=== PATIENT | female | born 1945 | race Caucasian/White ===

== ENCOUNTER 2017-12-25 13:17 | Emergency (ER) | payer MEDICARE, OTHER ==
[2017-12-25 13:25] VITALS: BP 144/67; PULSE 105; RESP 18; TEMP 97.8
--- NOTE | 2017-12-25 14:34 | XR ---
EXAMINATION TYPE: XR wrist complete LT, XR hand complete LT DATE OF EXAM: 12/25/2017 CLINICAL HISTORY: Injury with pain. TECHNIQUE: Frontal, lateral and oblique images of the left hand and wrist are obtained. Additional f ourth scaphoid view left wrist is acquired. COMPARISON: None FINDINGS: There is no acute fracture/dislocation evident in the left wrist. There is advanced joint space loss with marginal osteophytes at base of first metacarpal. Some faint calcification distal uln ar level is present, possible calcification of the triangular fibrocartilage. Images of left hand show demineralization. There is mild to moderate joint space loss throughout the phalanges involving PIP and DIP joints. No acute fracture or dislocation is evident. Mild to moderate diffuse soft tissue swelling throughout the fingers is seen. IMPRESSION: There is no acute fracture or dislocation in the left hand or wrist.
--- NOTE | 2017-12-25 14:42 | ED ---
General Adult HPI - General Chief complaint: Extremity Injury, Upper Stated complaint: L Hand Pain Time Seen by Provider: 12/25/17 13:32 Source: patient, RN notes reviewed Mode of arrival: ambulatory Limitations: no limitations - History of Present Illness Initial comments: 72-year-old female presents to the emergency department for a chief complaint of left wrist and hand pain x 2 days. Patient states that 2 days ago she was walking when she tripped on her dog and fell onto her right wrist. Patient states it has been painful since that time. Patient states she takes Tylenol for pain. Patient states it is painful to move her fingers and her wrist. Patient denies pain in the elbow or shoulder. Patient denies hitting her head or losing consciousness. Patient denies sustaining any other injuries.Patient has no other complaints at this time including shortness of breath, chest pain, abdominal pain, nausea or vomiting, headache, or visual changes. - Related Data Home Medications Medication Instructions Recorded Confirmed Atorvastatin Calcium [Lipitor] 80 mg PO HS 12/25/17 12/25/17 Gabapentin [Neurontin] 300 mg PO BID 12/25/17 12/25/17 Insulin Glargine,Hum.rec.anlog 48 units SQ HS 12/25/17 12/25/17 [Lantus Solostar] Isosorbide Mononitrate ER [Imdur] 60 mg PO DAILY 12/25/17 12/25/17 PARoxetine [Paxil] 10 mg PO DAILY 12/25/17 12/25/17 Potassium Chloride ER [K-Dur 10] 10 meq PO DAILY 12/25/17 12/25/17 metFORMIN HCL [metFORMIN HCL] 1,000 mg PO BID 12/25/17 12/25/17 sitaGLIPtin [Januvia] 100 mg PO DAILY 12/25/17 12/25/17 Allergies Allergy/AdvReac Type Severity Reaction Status Date / Time adhesive tape Allergy Unknown Verified 12/25/17 13:32 Review of Systems ROS Statement: Those systems with pertinent positive or pertinent negative responses have been documented in the HPI. ROS Other: All systems not noted in ROS Statement are negative. Past Medical History Past Medical History: Chest Pain / Angina, Hypertension Additional Past Medical History / Comment(s): back pain History of Any Multi-Drug Resistant Organisms: None Reported Past Surgical History: Back Surgery, Coronary Bypass/CABG Past Psychological History: No Psychological Hx Reported Smoking Status: Current some day smoker Past Alcohol Use History: None Reported Past Drug Use History: None Reported General Exam Limitations: no limitations General appearance: alert, in no apparent distress Head exam: Present: atraumatic, normocephalic, normal inspection Neck exam: Present: normal inspection. Absent: tenderness, meningismus, lymphadenopathy Respiratory exam: Present: normal lung sounds bilaterally. Absent: respiratory distress, wheezes, rales, rhonchi, stridor Cardiovascular Exam: Present: regular rate, normal rhythm, normal heart sounds. Absent: systolic murmur, diastolic murmur, rubs, gallop, clicks Extremities exam: Present: tenderness (Patient has generalized tenderness over the left wrist. Patient also has tenderness in the hand and scaphoid areas.), normal capillary refill (Refill less than 2 seconds and radial pulse 2+.), joint swelling (There is mild swelling noted over the dorsal left wrist and proximal hand.), other (Sensation intact in the left upper extremity.). Absent : normal inspection, full ROM (Patient has very limited flexion and extension of the wrist due to pain. Patient is able to move the wrist though. Patient is also able to move the fingers but has pain with doing so. Full range of motion of the left elbow and left shoulder.) Course Vital Signs 12/25/17 13:22 Temperature 97.8 F Pulse Rate 105 H Respiratory 18 Rate Blood Pressure 144/67 O2 Sat by Pulse 96 Oximetry Medical Decision Making - Medical Decision Making 72-year-old female presents to the emergency department for a chief complaint of left wrist and hand pain 2 days. Patient tripped over her dog 2 days ago and fell on her left wrist. Patient has been taking Tylenol for pain. She has not iced it. She was given ice in the emergency department. On exam patient refuses to move her wrist due to pain. Patient is able to move it if she needs to. Patient is also able to move her fingers but it is painful. Neurovascular intact. Patient has tenderness generalized over the left wrist as well as tenderness to the scaphoid area. X-ray shows no acute fracture or dislocation evident in the left hand or wrist. There is advanced joint space loss at the base of the first metacarpal. The calcification distal ulnar level present. Images of the left hand show demineralization. Mild to moderate joint space loss throughout the phalanges. No acute fracture or dislocation evident. Patient likely has a contusion of the left wrist. However, she will be splinted in a thumb spica in case of occult scaphoid fracture. She will follow up with orthopedics in one to 2 days. She will take Tylenol for pain until then and keep it rested, iced, and elevated. She will return to the emergency Department if she has any worsening symptoms. Disposition Clinical Impression: Wrist pain, left Disposition: HOME SELF-CARE Condition: Good Instructions: Wrist Injury (ED), RICE Therapy (ED) Additional Instructions: Please continue to take Tylenol for pain. Remember to rest, ice, and elevate the wrist. Return to the emergency department if you have any worsening symptoms. Otherwise follow-up with orthopedics in one to 2 days for "SCAPHOID TENDERNESS". Is patient prescribed a controlled substance at d/c from ED?: No Referrals: Shukri Streeter MD [Primary Care Provider] - 1-2 days Stacy Mendez DO [Doctor of Osteopathic Medicine] - 1-2 days Time of Disposition: 15:03
== END 2017-12-25 15:11 | disposition home or self-care (01) ==
LOC: EC 13:17
DX: M25.432 Effusion, left wrist (principal); M25.442 Effusion, left hand; M81.0 Age-related osteoporosis without current pathological fracture; R93.7 Abnormal findings on diagnostic imaging of other parts of musculoskeletal system; I10 Essential (primary) hypertension; F17.200 Nicotine dependence, unspecified, uncomplicated; Z79.4 Long term (current) use of insulin; Z79.899 Other long term (current) drug therapy; Z91.09 Other allergy status, other than to drugs and biological substances; W01.0XXA Fall on same level from slipping, tripping and stumbling without subsequent striking against object, initial encounter; Y93.01 Activity, walking, marching and hiking
CPT/HCPCS: 99283 ×2; 29125 ×2; 73110; 73130; L3650

== ENCOUNTER → 2020-01-11 | Outpatient (CLI) | payer MEDICARE, OTHER ==
[2020-01-11 10:59] LABS: Amorphous Sediment,Urine Rare /hpf; Appearance,Urine Cloudy (Clear); Bacteria,Urine Few /hpf; Bilirubin,Urine Negative (Negative); Blood,Urine Negative (Negative); Color,Urine Yellow; Glucose,Urine (UA) Negative (Negative); Ketones,Urine Negative (Negative); Leukocyte Esterase,Urine Large (Negative); Mucus,Urine Rare /hpf; Nitrite,Urine Negative (Negative); Protein,Urine Negative (Negative); RBC,Urine 2 /hpf (0-5); Specific Gravity,Urine 1.015 (1.001-1.035); Squamous Epithelial Cell,Urine 32 /hpf (0-4); WBC,Urine 25 /hpf (0-5)
--- NOTE | 2020-01-11 13:44 | XR ---
EXAMINATION TYPE: XR chest 2V DATE OF EXAM: 01/11/2020 COMPARISON: Prior chest x-ray 06/27/2016 HISTORY: Z01.818 TECHNIQUE: Frontal and lateral views of the chest are obtained. FINDINGS: Patient is post median sternotomy and rotated. The aorta is dense and possibly aneurysmal. There is no evident airspace disease, pneumothorax, or pleural effusion. Heart is enlarged. IMPRESSION: Cardiomegaly, possible thoracic aortic aneurysm
== END | disposition home or self-care (01) ==
LOC: LABPAT 09:26
PROVIDERS: ATTEND Orthopaedic Surgery Orthopaedic Surgery of the Spine
DX: Z01.818 Encounter for other preprocedural examination (principal); I51.7 Cardiomegaly; M50.00 Cervical disc disorder with myelopathy, unspecified cervical region
CPT/HCPCS: 71046; 81001; 93005

== ENCOUNTER → 2020-08-01 | Outpatient (CLI) | payer MEDICARE, OTHER ==
--- NOTE | 2020-08-01 13:22 | XR ---
EXAMINATION TYPE: XR chest 2V DATE OF EXAM: 08/01/2020 COMPARISON: 01/11/2020 TECHNIQUE: PA and lateral views submitted. HISTORY: Presurgical FINDINGS: The lungs are clear and there is no pneumothorax, pleural effusion, or focal pneumonia. Postoperati ve changes seen and there is ectasia of the aorta with cardiomegaly. Hypertrophic and degenerative ch anges spine. IMPRESSION: 1. Cardiomegaly with aortic ectasia correlate clinically.
[2020-08-01 13:47] LABS: HCT 40.3 % (34.0-46.0); HGB 13.5 gm/dL (11.4-16.0); MCH 32.9 pg (25.0-35.0); MCHC 33.6 g/dL (31.0-37.0); MCV 97.7 fL (80.0-100.0); Mean Platelet Volume 9.6; Platelet Count 191 k/uL (150-450); RBC 4.12 m/uL (3.80-5.40); RDW 13.8 % (11.5-15.5)
[2020-08-01 13:54] LABS: Appearance,Urine Cloudy (Clear); Bacteria,Urine Rare /hpf; Bilirubin,Urine Negative (Negative); Blood,Urine Negative (Negative); Color,Urine Yellow; Glucose,Urine (UA) Negative (Negative); Ketones,Urine Negative (Negative); Leukocyte Esterase,Urine Large (Negative); Mucus,Urine Moderate /hpf; Nitrite,Urine Negative (Negative); Protein,Urine 1+ (Negative); Specific Gravity,Urine 1.026 (1.001-1.035); Squamous Epithelial Cell,Urine 28 /hpf (0-4); WBC,Urine 24 /hpf (0-5)
[2020-08-01 13:56] LABS: INR 1.1 (<1.2); Prothrombin Time 11.2 sec (9.0-12.0)
[2020-08-01 14:03] LABS: Potassium 4.4 mmol/L (3.5-5.1)
== END | disposition home or self-care (01) ==
LOC: LABPAT 12:38
PROVIDERS: ATTEND Orthopaedic Surgery Orthopaedic Surgery of the Spine
DX: Z01.818 Encounter for other preprocedural examination (principal); M48.02 Spinal stenosis, cervical region; I51.7 Cardiomegaly; Z79.01 Long term (current) use of anticoagulants; N39.0 Urinary tract infection, site not specified
CPT/HCPCS: 36415; 71046; 80048; 81001; 85027; 85610; 85730; 87086

== ENCOUNTER 2020-08-29 10:36 | Day surgery (SDC) | payer MEDICARE, OTHER ==
[2020-08-01 10:01] VITALS: BMI 24.7
[~2020-08-29 10:36] MED LIST: DEXAMETHASONE SOD PHOSPHATE 4 MG/ML 1 ML VIAL IV ONE; HYDROmorphone 0.5 MG/0.5 ML SYRINGE IVP PRN; LACTATED RINGERS 1,000 ML IV SCH; LIDOCAINE 1% (10MG/ML) FOR IV START INTRADERMA PRN; ONDANSETRON 4 MG/2 ML VIAL IVP ONE; ceFAZolin 1,000 MG in SODIUM CHLORIDE 0.9% IRRIGATIO 1,000 ML IRRIGATION PRN
[2020-08-29] MEDS ORDERED: LIDOCAINE 1% (10MG/ML) FOR IV START INTRADERMA ONE (11:40)
[2020-08-29] MEDS ORDERED: LACTATED RINGERS 1,000 ML IV ONE ×2 (11:40→15:19)
[2020-08-29 11:53] LABS: Glucose,Whole Blood 139 mg/dL (75-99)
[2020-08-29] MEDS ORDERED: SUCCINYLCHOLINE CHLORIDE 100 MG/5 ML SYR IV ONE (13:24)
[2020-08-29] MEDS ORDERED: MIDAZOLAM 2 MG/2 ML VIAL ONE (13:24)
[2020-08-29] MEDS ORDERED: DEXAMETHASONE SOD PHOSPHATE 10 MG/ML 1 ML VIAL ONE (13:24)
[2020-08-29] MEDS ORDERED: LIDOCAINE 1% INJ 10MG/ML (20 ML MDV) ONE (13:24)
[2020-08-29] MEDS ORDERED: ePHEDrine SULFATE/0.9% NACL/PF 50 MG/5 ML SYRINGE IV ONE (13:24)
[2020-08-29] MEDS ORDERED: fentaNYL (PF) 50 MCG/ML 2 ML AMP ONE (13:24)
[2020-08-29] MEDS ORDERED: PHENYLEPHRINE 10 MG/ML VIAL ONE (13:24)
[2020-08-29] MEDS ORDERED: PROPOFOL 10 MG/ML 20 ML VIAL IV ONE (13:24)
[2020-08-29] MEDS ORDERED: GELATIN SPONGE,ABSORB (LARGE) 1 EACH SPONGE MISCELLANE ONE (14:13)
[2020-08-29] MEDS ORDERED: LIDOCAINE 1%-EPI 1:100,000 20 ML VIAL SQ ONE (14:13)
[2020-08-29] MEDS ORDERED: THROMBIN (BOVINE) 5,000 UNIT VIAL TOPICAL ONE (14:14)
--- NOTE | 2020-08-29 14:33 | XR ---
Cervical spine HISTORY: Needle placement Single lateral view of cervical spine Multilevel spondylosis is present. Endotracheal tube is in place. There is a needle present within th e C4-5 disc space. Multilevel loss of disc height at intervertebral levels disc spaces, multilevel fa cet arthropathy noted. There are overlying artifacts. Lower cervical spine not well seen. Patient is edentulous. IMPRESSION: Orthopedic localization.
[2020-08-29] MEDS ORDERED: ACETAMINOPHEN TAB 325 MG TAB PO PRN (15:39)
[2020-08-29] MEDS ORDERED: BENZOCAINE/MENTHOL LOZENG 1 EACH LOZENGE MUCOUS MEM PRN (15:39)
[2020-08-29] MEDS ORDERED: ONDANSETRON 4 MG/2 ML VIAL IVP PRN (15:39)
[2020-08-29] MEDS ORDERED: HYDROcodone/APAP 5-325MG 1 EACH TAB PO PRN (15:39)
[2020-08-29] MEDS ORDERED: HYDROmorphone 0.5 MG/0.5 ML SYRINGE IVP PRN (15:39)
[2020-08-29] MEDS ORDERED: HYDROmorphone 1 MG/ML 1 ML SYRINGE IVP PRN (15:39)
[2020-08-29] MEDS ORDERED: GABAPENTIN 100 MG CAP PO PRN (15:40)
--- NOTE | 2020-08-29 15:45 | P.OP ---
Date of Procedure: 08/29/20 Preoperative Diagnosis: Cervical myelopathy, cervical myelomalacia, severe cervical stenosis C3 4 C4 5 C5 6, needed nucleus pulposis C3 4 C4 5 C5 6, upper extremity radiculopathy, upper extremity weakness, degenerative disc disease, neck pain Postoperative Diagnosis: Same Anesthesia: GETA Pathology: none sent Condition: stable Disposition: PACU Description of Procedure: BRIEF OPERATIVE NOTE Preoperative Diagnosis:Cervical myelopathy, cervical myelomalacia, severe cervical stenosis C3 4 C4 5 C5 6, needed nucleus pulposis C3 4 C4 5 C5 6, upper extremity radiculopathy, upper extremity weakness, degenerative disc disease, neck pain Postoperative Diagnosis:Cervical myelopathy, cervical myelomalacia, severe cervical stenosis C3 4 C4 5 C5 6, needed nucleus pulposis C3 4 C4 5 C5 6, upper extremity radiculopathy, upper extremity weakness, degenerative disc disease, neck pain Procedure: Anterior cervical decompression with discectomy and fusion C3-4 C4 5 C5 6 Placement of interbody graft C3 4 C4 5 C5 6 Application of anterior cervical plate C3 4 5 and 6 Surgeon: Dr. Mendez Stave Grader: Maxwell Raymundo is present throughout the entire the case persistence during positioning, dissection, exposure, visualization, and all crucial elements of the case as well as closure. Anesthesia: General anesthesia Estimated blood loss: Approximately 75 mL Complications: None apparent Components implanted: K2M Hendricks anterior cervical plate system with screws and Vikos interbody allograft bone graft with 1 mL of DBX bone putty Disposition: To recovery room in good stable condition. OPERATIVE INDICATIONS The patient has had long-standing issues in their neck and upper extremities. The patient was having worsening at her neck and her upper extremities and some decrease in her function overall. She is having some evidence of weakness in her upper extremity swelled. She was noted to have some signs of early myelopat hy. She was found to have severe cervical stenosis with disc herniation and evidence of severe cervical stenosis with myelomalacia which correlated well with her neck and upper extremity symptoms. The patient has been through conservative treatment. We discussed various treatment options including surgery, and the patient wishes to proceed with surgery We discussed the risk, patient's alternatives and benefits of surgery including but not limited to, risk of bleeding risk of infection, risk of need for further surgery, risk of decreased, loss of motion, muscle function, malunion nonunion, hardware failure, nerve damage, paralysis, heart attack, and . OPERATIVE SUMMARY After discussing all the risks, patient alternatives and benefits at length, the patient elected to proceed with surgical intervention, signed informed consent, and presented for their procedure. The patient was seen and examined in the preoperative holding area and the surgical site was marked. The patient was given antibiotics and brought to the operating room. The patient was positioned on the operating room table in a supine position being careful to pad any bony prominences and pressure points. The patient was sedated and intubated by anesthesia in standard fashion. Once the airway and C- spine were stabilized the patient's arms were padded and tucked at her side, with her shoulders gently taped. The head was placed in a donut pad with the neck in good neutral alignment and position. We were careful to maintain the patient's cervical spine and good neutral alignment and position throughout. The patient was prepped and draped in a normal standard fashion. An appropriate timeout and keystone protocol performed. We were able to proceed with the surgery. The local wound area was infiltrated with local anesthetic. An incision was made transversely approximately 2-1/2 cm over the appropriate levels at C4 5. Dissection was taken down subcutaneously to the level of the platysma which was split in line with its fibers. Dissection was taken with a carotid approach, with the trachea and esophagus medial and the carotid sheath laterally. We dissected down to the anterior surface of the vertebral bodies. Intraoperative x-ray was taken which showed a marker at the appropriate level at C4 5. With the appropriate level positively confirmed, we were able to proceed with discectomy at the appropriate levels, starting at C3 4 and then moving to C4 5 and C5 6 . All of the operative levels were exposed appropriately. The patient had all their twitches back, and there was no evidence of recurrent laryngeal issue. The wound was copiously irrigated and suctioned dry as had been done periodically throughout the case. At the appropriate level/levels, I established an annulotomy with an 11 blade scalpel. A discectomy was performed with a combination of pituitary rongeurs, curettes, a high-speed bur, and Kerrison rongeurs. The posterior longitudinal ligament was taken down as were any posterior osteophytes. no was made of severe central and bilateral foraminal stenosis with large disc herniation. I was able to remove the spurs the disc herniation as well as the posterior osteophytes and get excellent central and bilateral foraminal decompression. This gave good central and bilateral foraminal decompression. There is no evidence of any dural tear or leak. The endplates were prepared with a high-speed bur. With the endplates in good parallel position, I was able to size for the appropriate size interbody graft. The wound was irrigated and suctioned dry the graft was prepared and malleted into position. It had good alignment and position with the anterior surface flush with the anterior surface of the vertebral bodies. This was done similarly the appropriate levels First at C3 4 and then at C4 5 and C5 6. With the grafts intact, I was able to measure and contour and appropriate sized plate. The plate was positioned at the midline over the appropriate levels From C3 6. Screw holes were established with a hand drill and drill guide. Screws were placed in good alignment and position with excellent bony purchase. They were seated under the locking device. The construct was checked and found to be stable. Intraoperative x-ray was taken which showed good alignment and position of the implants at the appropriate levels. There was no evidence of any dural tear or leak. Good hemostasis was maintained. The wound was copiously irrigated and suctioned dry as had been done periodically throughout the case. The platysma was closed with absorbable suture. The subcutaneous tissue was closed. The subcuticular tissue was closed with absorbable suture. The wound was cleaned and dried and dressed appropriately. A soft cervical collar was placed appropriately. The patient was woken up by anesthesia, extubated, transferred back gently to their hospital bed and brought to the recovery room in good stable condition. The patient will be admitted to the hospital for appropriate postoperative care, medical management and monitoring. We will continue to follow them closely about the postoperative course.
[2020-08-29 16:02] LABS: Glucose,Whole Blood 150 mg/dL (75-99)
--- NOTE | 2020-08-29 16:02 | XR ---
Cervical spine Limited HISTORY: Status post fusion Single lateral cervical spine view is submitted. Patient is status post anterior cervical fusion and discectomy at C3-C6. Intervertebral spacing block s been in placed. Upper portion of the anterior plate is not opposed to the C3 vertebral body. There is stable alignment. IMPRESSION: Orthopedic follow-up as described
[2020-08-29] MEDS: SODIUM CHLORIDE 0.9% 1,000 ML IV SCH (17:20)
[2020-08-29] MEDS: LACTATED RINGERS 1,000 ML IV SCH (17:43)
[2020-08-29 20:49] LABS: Glucose,Whole Blood 165 mg/dL (75-99)
[2020-08-29] MEDS: INSULIN ASPART (NovoLOG) 100 UNIT/ML VIAL SQ SCH (20:52)
[2020-08-29] MEDS ORDERED: ATORVASTATIN 80 MG TAB PO SCH (21:00)
[2020-08-29] MEDS: METOPROLOL TARTRATE 50 MG TAB PO SCH (21:11)
[2020-08-29] MEDS: NITROFURANTOIN MONOHYD/M-CRYST 100 MG CAP PO SCH (21:12)
[2020-08-30] MEDS: traMADol 50 MG TAB PO PRN ×2 (01:17→08:53)
[2020-08-30] MEDS: LACTATED RINGERS 1,000 ML IV SCH (03:36)
[2020-08-30] MEDS: SODIUM CHLORIDE 0.9% 1,000 ML IV SCH (05:00)
[2020-08-30 05:01] VITALS: RESP 20
[2020-08-30 06:41] LABS: Glucose,Whole Blood 173 mg/dL (75-99)
[2020-08-30] MEDS: INSULIN ASPART (NovoLOG) 100 UNIT/ML VIAL SQ SCH ×2 (06:45→12:29)
[2020-08-30] MEDS: METOPROLOL TARTRATE 50 MG TAB PO SCH (06:48)
[2020-08-30] MEDS ORDERED: INSULIN DETEMIR (LEVEMIR) 100 UNIT/ML SYR SQ SCH (07:00)
[2020-08-30 08:42] VITALS: PULSE 64
[2020-08-30 08:43] VITALS: BP 152/85; TEMP 97.7
[2020-08-30] MEDS: NITROFURANTOIN MONOHYD/M-CRYST 100 MG CAP PO SCH (08:50)
--- NOTE | 2020-08-30 08:50 | P.DS ---
Providers Date of admission: 08/29/20 Attending physician: Stacy Mendez Primary care physician: Kristian Lundberg [facility] Course: The patient presented on the day of admission as per their operative note. She has severe cervical stenosis with cervical myelopathy and myelomalacia and underwent anterior cervical decompression with discectomy and fusion as per her operative note. We have discussed the possibility of posterior cervical decompression as well, and we will continue to consider this but we may follow patient through her postoperative course from her anterior surgery before we make a final decision on further surgery Intervention for her neck. She feels her arms are doing better since her surgery. She feels her gait and balance is better already. She is having some trouble with her swallowing but did have some Jell-O and some putting yesterday. She feels her pain is controlled. Physical Exam The incision site is clean dry and intact. There is no erythema no drainage. There is no purulence no evidence of infection. There is some mild swelling but no tension around the area. It is soft and supple. Abdomen soft and nontender. Chest has good excursion with deep inspiration and expiration. The patient has active and passive range of motion intact at the upper and lower extremities. There is some mild improvement in her motion and her arms and in neurologic status. She does seem to be moving her arms somewhat improved overall. Hospital Course Postoperative day #1 status post anterior cervical decompression with discectomy and fusion C3 4 C4 5 C5 6 for her severe spinal stenosis with cervical myelopathy and myelomalacia and upper extremity radiculopathy and weakness. The patient has been making good progress postoperatively. She seems to making improvements in her neurologic status already. They have completed the prophylactic antibiotics without any signs or symptoms of infection. The patient has been able to advance their diet, and is tolerating diet adequately. The pain was initially controlled with IV medications and is now controlled appropriately with oral medications. The patient has been able to increase their mobilization. The patient has progressed appropriately. I think they are in good stable condition for discharge today. They will be sent home with appropriate prescriptions. I answered their questions to the best of my ability in a language that they can understand and they are agreeable with the plan. They will follow up as directed in approximately 2 weeks or sooner if she is having any problems. Patient Condition at Discharge: Good Plan - Discharge Summary Discharge Rx Participant: No New Discharge Prescriptions: New HYDROcodone/APAP 5-325MG [[place] 5] 1 each PO Q6HR PRN #28 tab PRN Reason: Pain No Action sitaGLIPtin [Januvia] 100 mg PO DAILY metFORMIN HCL 1,000 mg PO DAILY PARoxetine [Paxil] 20 mg PO DAILY Insulin Glargine,Hum.rec.anlog [Lantus Solostar] 30 units SQ AC-BRKFST PRN PRN Reason: BLOOD SUGAR OVER 140 IN AM Atorvastatin Calcium [Lipitor] 80 mg PO HS Metoprolol Tartrate [Lopressor] 50 mg PO BID traMADol HCL [Ultram] 50 - 100 mg PO Q6HR PRN PRN Reason: Pain Aspirin 81 mg PO DAILY traZODone HCL 50 mg PO HS Gabapentin [Neurontin] 100 mg PO TID PRN PRN Reason: PAIN Acetaminophen Tab [Tylenol Tab] 500 - 1,000 mg PO Q6H PRN PRN Reason: Pain Nitrofurantoin Monohyd/M-Cryst [Macrobid] 100 mg PO Q12HR Discharge Medication List Atorvastatin Calcium [Lipitor] 80 mg PO HS 12/25/17 [History] Insulin Glargine,Hum.rec.anlog [Lantus Solostar] 30 units SQ AC-BRKFST PRN 12/25/17 [History] PARoxetine [Paxil] 20 mg PO DAILY 12/25/17 [History] metFORMIN HCL 1,000 mg PO DAILY 12/25/17 [History] sitaGLIPtin [Januvia] 100 mg PO DAILY 12/25/17 [History] Aspirin 81 mg PO DAILY 08/01/20 [History] Gabapentin [Neurontin] 100 mg PO TID PRN 08/01/20 [History] Metoprolol Tartrate [Lopressor] 50 mg PO BID 08/01/20 [History] traMADol HCL [Ultram] 50 - 100 mg PO Q6HR PRN 08/01/20 [History] traZODone HCL 50 mg PO HS 08/01/20 [History] Acetaminophen Tab [Tylenol Tab] 500 - 1,000 mg PO Q6H PRN 08/23/20 [History] Nitrofurantoin Monohyd/M-Cryst [Macrobid] 100 mg PO Q12HR 08/24/20 [History] HYDROcodone/APAP 5-325MG [[place] 5] 1 each PO Q6HR PRN #28 tab 08/29/20 [Rx] Follow up Appointment(s)/Referral(s): Stacy Mendez DO [Doctor of Osteopathic Medicine] - 2 Weeks Activity/Diet/Wound Care/Special Instructions: No smoking. No nicotine patches. No nicotine. Keep site clean. May shower with waterproof Tegaderm intact. Do not soak in a tub. After 72 hours postoperatively, patient May remove dressing and then may shower with area uncovered. Leave Steri-Strips intact and allow them to fray off on their own. May ambulate as tolerated. Avoid heavy or rigorous activity. No repetitive bending twisting or lifting. No overhead work. Discharge Disposition: HOME SELF-CARE
[2020-08-30] MEDS ORDERED: SENNOSIDES-DOCUSATE SODIUM 1 EACH TAB PO SCH (09:00)
[2020-08-30] MEDS ORDERED: ASPIRIN 81 MG PO SCH (09:00)
[2020-08-30] MEDS ORDERED: PARoxetine 20 MG TAB PO SCH (09:00)
[2020-08-30] MEDS ORDERED: LINAGLIPTIN 5 MG TABLET PO SCH (09:00)
[2020-08-30] MEDS ORDERED: metFORMIN 500 MG TAB PO SCH (09:00)
[2020-08-30 12:26] LABS: Glucose,Whole Blood 135 mg/dL (75-99)
== END 2020-08-30 13:00 | disposition home or self-care (01) ==
LOC: OR 10:36 → 6PED 15:44 → OR 08-30 13:00
PROVIDERS: ATTEND Orthopaedic Surgery Orthopaedic Surgery of the Spine
DX: M50.01 Cervical disc disorder with myelopathy, high cervical region (principal); M50.11 Cervical disc disorder with radiculopathy, high cervical region; M48.02 Spinal stenosis, cervical region; G95.89 Other specified diseases of spinal cord; M25.78 Osteophyte, vertebrae; M51.16 Intervertebral disc disorders with radiculopathy, lumbar region; M48.061 Spinal stenosis, lumbar region without neurogenic claudication; M43.13 Spondylolisthesis, cervicothoracic region; M43.16 Spondylolisthesis, lumbar region; I10 Essential (primary) hypertension; E78.5 Hyperlipidemia, unspecified; E11.9 Type 2 diabetes mellitus without complications; F17.210 Nicotine dependence, cigarettes, uncomplicated; I65.23 Occlusion and stenosis of bilateral carotid arteries; I25.810 Atherosclerosis of coronary artery bypass graft(s) without angina pectoris; Z88.2 Allergy status to sulfonamides; Z91.048 Other nonmedicinal substance allergy status; Z79.899 Other long term (current) drug therapy; Z79.51 Long term (current) use of inhaled steroids; Z79.82 Long term (current) use of aspirin; Z79.4 Long term (current) use of insulin; Z88.5 Allergy status to narcotic agent; Z88.1 Allergy status to other antibiotic agents; Z88.8 Allergy status to other drugs, medicaments and biological substances; Z95.1 Presence of aortocoronary bypass graft; Z83.3 Family history of diabetes mellitus; Z82.49 Family history of ischemic heart disease and other diseases of the circulatory system; Z98.1 Arthrodesis status; Z95.5 Presence of coronary angioplasty implant and graft
CPT/HCPCS: 86900; 86901; 86850; 72020; 22551; 22552 ×2; 20930; 20931; 22846; C1713 ×2; C1762 ×3; J2250; J1100; J2370; J0690 ×3; J2405; J2001; J3010; J0330; J2704

== ENCOUNTER → 2020-10-29 | Outpatient (CLI) | payer MEDICARE, OTHER ==
[2020-10-29 23:13] LABS: Chol/HDL Ratio 3.03; LDL Cholesterol,Calculated 42.8 mg/dL (0.0-131.0); VLDL Calculation 20.2 mg/dL (5.00-40.00)
== END | disposition home or self-care (01) ==
LOC: LABWHC1 11:42
PROVIDERS: ATTEND Internal Medicine Cardiovascular Disease
DX: E78.2 Mixed hyperlipidemia (principal)
CPT/HCPCS: 36415; 80061; 84450; 84460

== ENCOUNTER → 2021-01-15 | Outpatient (CLI) | payer MEDICARE, OTHER ==
[2021-01-15 18:06] LABS: Hemoglobin A1C 5.9 % (4.0-6.0)
== END | disposition home or self-care (01) ==
LOC: LABWHC1 10:03
PROVIDERS: ATTEND Family Medicine
DX: E11.649 Type 2 diabetes mellitus with hypoglycemia without coma (principal)
CPT/HCPCS: 36415; 83036

== ENCOUNTER → 2021-02-07 | Outpatient (CLI) | payer MEDICARE, OTHER ==
[2021-02-07 18:11] LABS: HCT 40.9 % (37.2-46.3); HGB 13.4 g/dL (12.0-15.0); MCH 31.2 pg (27.0-32.0); MCHC 32.8 g/dL (32.0-37.0); MCV 95.3 fL (80.0-97.0); Mean Platelet Volume 12.8 fL (9.5-12.2); Platelet Count 185 X 10*3/uL (140-440); RBC 4.29 X 10*6/uL (4.10-5.20); RDW 14.5 % (11.5-14.5); WBC 9.37 X 10*3/uL (4.50-10.00)
[2021-02-08 03:31] LABS: African American GFR (CKD) 84.2 (60.0-200.0); Anion Gap 8.9 mmol/L (4.00-12.00); BUN/Creat Ratio 28.75 Ratio (12.00-20.00); Calcium 9.6 mg/dL (8.7-10.3); Carbon Dioxide 28.1 mmol/L (21.6-31.8); Non-African American GFR(CKD) 72.6 (60.0-200.0); Potassium 4.8 mmol/L (3.5-5.5)
== END | disposition home or self-care (01) ==
LOC: LABWHC1 11:22
PROVIDERS: ATTEND Internal Medicine Cardiovascular Disease
DX: I95.1 Orthostatic hypotension (principal)
CPT/HCPCS: 36415; 80048; 84443; 85027

== ENCOUNTER → 2021-12-06 | Outpatient (CLI) | payer MEDICARE, OTHER ==
[2021-12-06 16:19] LABS: ALT 26 U/L (8-44); AST 43 U/L (13-35); Chol/HDL Ratio 1.99 Ratio; LDL Cholesterol,Calculated 34.3 mg/dL (0.0-131.0); VLDL Calculation 12.38 mg/dL (5.00-40.00)
== END | disposition home or self-care (01) ==
LOC: LABWHC1 08:52
PROVIDERS: ATTEND Internal Medicine Cardiovascular Disease
DX: E78.2 Mixed hyperlipidemia (principal)
CPT/HCPCS: 36415; 80061; 84450; 84460

== ENCOUNTER 2022-03-13 06:01 | Emergency (ER) | payer MEDICARE, OTHER ==
[2022-03-13 06:34] LABS: Basophils % (A) 0 %; Eosinophils % (A) 0 %; HCT 25.8 % (34.0-46.0); HGB 8.3 gm/dL (11.4-16.0); Hypochromasia Slight; Lymphocytes % (A) 18 %; MCH 31.8 pg (25.0-35.0); MCV 99.2 fL (80.0-100.0); Mean Platelet Volume 11.1; Monocytes # (A) 0.4 k/uL (0-1.0); Monocytes % (A) 4 %; Neutrophils # (A) 8.8 k/uL (1.3-7.7); Neutrophils % (A) 77 %; Platelet Count 184 k/uL (150-450); RDW 13.7 % (11.5-15.5); WBC 11.5 k/uL (3.8-10.6)
[2022-03-13] MEDS ORDERED: PANTOPRAZOLE 40 MG/10 ML VIAL IVP STA (06:37)
[2022-03-13 06:48] LABS: INR 1.2 (<1.2); Prothrombin Time 12.8 sec (9.0-12.0)
[2022-03-13 06:55] LABS: Albumin 2.5 g/dL (3.5-5.0); Calcium 7.9 mg/dL (8.4-10.2); Magnesium 1.3 mg/dL (1.6-2.3); Potassium 4.1 mmol/L (3.5-5.1); Total Bilirubin 0.5 mg/dL (0.2-1.3); Total Protein 4.3 g/dL (6.3-8.2)
[2022-03-13] MEDS ORDERED: MAGNESIUM SULFATE-D5W PMX 1 GM in DEXTROSE/WATER 1 100ML.BAG IVPB ONE (07:04)
[2022-03-13] MEDS ORDERED: ONDANSETRON 4 MG/2 ML VIAL IVP STA (07:04)
[2022-03-13] MEDS ORDERED: ACETAMINOPHEN IV (For NPO) 720 MG in EMPTY BAG 1 BAG IVPB STA (07:13)
[2022-03-13] MEDS ORDERED: METOCLOPRAMIDE 5 MG/ML 2 ML VIAL IVP STA (07:30)
[2022-03-13 07:33] LABS: Partial Thromboplastin Time 20.5 sec (22.0-30.0)
--- NOTE | 2022-03-13 07:47 | ED ---
GI Bleed HPI - General Chief complaint: GI Bleed Stated complaint: GI Bleed Time Seen by Provider: 03/13/22 06:22 Source: patient, family, EMS, RN notes reviewed Mode of arrival: EMS Limitations: no limitations - History of Present Illness Initial comments: This a 76-year-old female presents emergency department via EMS with chief complaint of syncopal episode, nausea vomiting. Patient states she didn't feel well states that she get through the bathroom and states that she had multiple episodes of emesis and which she states was then noted to be blood. Patient states she does take aspirin denies taking any other blood thinners denies Plavix. Patient states she currently any like this in the past no history of ulcers. Patient's the room states that she was laying on the bathroom for when he found her earlier this morning. Patient denies any head injury denies any headache, neck pain, back pain states she did have some abdominal pa in which is resolved she states her some just more upset. Denies any recent rectal bleeding denies any black tarry stools. - Related Data Home Medications Medication Instructions Recorded Confirmed Atorvastatin Calcium [Lipitor] 80 mg PO HS 12/25/17 03/13/22 metFORMIN HCL 1,000 mg PO BID 12/25/17 03/13/22 Gabapentin [Neurontin] 100 mg PO HS PRN 08/01/20 03/13/22 traMADol HCL [Ultram] 50 mg PO BID PRN 08/01/20 03/13/22 Isosorbide Mononitrate ER [Imdur] 15 mg PO DAILY 03/13/22 03/13/22 Metoprolol Tartrate [Lopressor] 12.5 mg PO DAILY 03/13/22 03/13/22 Midodrine HCl [ProAmantine] 2.5 mg PO BID 03/13/22 03/13/22 PARoxetine [Paxil] 20 mg PO DAILY 03/13/22 03/13/22 traZODone HCL 150 mg PO HS 03/13/22 03/13/22 Allergies Allergy/AdvReac Type Severity Reaction Status Date / Time adhesive tape Allergy Rash/Hives Verified 03/13/22 07:45 Sulfa (Sulfonamide Allergy Unknown Verified 03/13/22 07:45 Antibiotics) Review of Systems ROS Statement: Those systems with pertinent positive or pertinent negative responses have been documented in the HPI. ROS Other: All systems not noted in ROS Statement are negative. Past Medical History Past Medical History: Coronary Artery Disease (CAD), Chest Pain / Angina, Diabetes Mellitus, Hypertension, Osteoarthritis (OA) Additional Past Medical History / Comment(s): back pain History of Any Multi-Drug Resistant Organisms: None Reported Past Surgical History: Back Surgery, Coronary Bypass/CABG, Hysterectomy, Orthopedic Surgery, Tonsillectomy Additional Past Surgical History / Comment(s): STENT -PANCREAS, Anterior Cervical Fusion 08/29/20 Past Psychological History: No Psychological Hx Reported Past Alcohol Use History: None Reported General Exam General appearance: alert, in no apparent distress Head exam: Present: atraumatic, normocephalic, normal inspection Eye exam: Present: normal appearance, PERRL, EOMI. Absent: scleral icterus, conjunctival injection, periorbital swelling ENT exam: Present: normal exam, normal oropharynx, mucous membranes moist Neck exam: Present: normal inspection, full ROM. Absent: tenderness, meningismus, lymphadenopathy Respiratory exam: Present: normal lung sounds bilaterally. Absent: respiratory distress, wheezes, rales, rhonchi, stridor Cardiovascular Exam: Present: regular rate, normal rhythm, normal heart sounds. Absent: systolic murmur, diastolic murmur, rubs, gallop, clicks GI/Abdominal exam: Present: soft, tenderness (Minimal epigastric), normal bowel sounds. Absent: distended, guarding, rebound, rigid Back exam: Absent: CVA tenderness (R), CVA tenderness (L) Skin exam: Present: warm, dry, intact, normal color. Absent: rash Course Vital Signs 03/13/22 03/13/22 03/13/22 06:02 07:07 08:20 Temperature 97.5 F L Pulse Rate 80 89 87 Respiratory 16 20 18 Rate Blood Pressure 114/45 104/57 101/52 O2 Sat by Pulse 95 94 L 90 L Oximetry 03/13/22 03/13/22 08:53 09:03 Temperature 97.6 F 98.9 F Pulse Rate 90 91 Respiratory 16 16 Rate Blood Pressure 106/52 113/59 O2 Sat by Pulse 94 L 92 L Oximetry Medical Decision Making - Medical Decision Making 76-year-old female presented emergency Department chief complaint of hematemesis. Patient does have a hemoglobin of 8.3. Undergo patient's hemoglobin was 13.4. Patient did have an episode of hematemesis during her CT. Patient was ordered 1 unit of blood. Patient was given Protonix along with antiemetics. Patient has elevated lactic 4.2 with no signs of infection CT shows concerning to 10 changes concerning for one of hematoma, possible gastric outlet obstruction this may related to inflammatory first ischemic changes patient has no history of alcohol abuse. I did discuss the case with on-call surgery Dr. Khanna feels the patient needs GI services, which appear services are not currently available. I did ask about NG tube felt patient should remain on antiemetics, no NG tube at this time as he is not clear reason for bleeding. Case discussed with [facility] who accepts transfer - Lab Data Result diagrams: 03/13/22 06:24 03/13/22 06:24 Lab Results 03/13/22 03/13/22 03/13/22 Range/Units 06:15 06:24 06:24 WBC 11.5 H (3.8-10.6) k/uL RBC 2.60 L (3.80-5.40) m/uL Hgb 8.3 L (11.4-16.0) gm/dL Hct 25.8 L (34.0-46.0) % MCV 99.2 (80.0-100.0) fL MCH 31.8 (25.0-35.0) pg MCHC 32.0 (31.0-37.0) g/dL RDW 13.7 (11.5-15.5) % Plt Count 184 (150-450) k/uL MPV 11.1 Neutrophils % 77 % Lymphocytes % 18 % Monocytes % 4 % Eosinophils % 0 % Basophils % 0 % Neutrophils # 8.8 H (1.3-7.7) k/uL Lymphocytes # 2.0 (1.0-4.8) k/uL Monocytes # 0.4 (0-1.0) k/uL Eosinophils # 0.0 (0-0.7) k/uL Basophils # 0.0 (0-0.2) k/uL Hypochromasia Slight PT 12.8 H (9.0-12.0) sec INR 1.2 H (<1.2) APTT 20.5 L (22.0-30.0) sec Sodium (137-145) mmol/L Potassium (3.5-5.1) mmol/L Chloride (98-107) mmol/L Carbon Dioxide (22-30) mmol/L Anion Gap mmol/L BUN (7-17) mg/dL Creatinine (0.52-1.04) mg/dL Est GFR (CKD-EPI)AfAm (>60 ml/min/1.73 sqM) Est GFR (CKD-EPI)NonAf (>60 ml/min/1.73 sqM) Glucose (74-99) mg/dL Lactic Ac Sepsis Rflx Plasma Lactic Acid Larry (0.7-2.0) mmol/L Calcium (8.4-10.2) mg/dL Magnesium (1.6-2.3) mg/dL Total Bilirubin (0.2-1.3) mg/dL AST (14-36) U/L ALT (4-34) U/L Alkaline Phosphatase (38-126) U/L Troponin I (0.000-0.034) ng/mL Total Protein (6.3-8.2) g/dL Albumin (3.5-5.0) g/dL Lipase (23-300) U/L Blood Type O Negative Blood Type Recheck O Neg Bld Type Recheck Status No Antibody Screen NEGATIVE Crossmatch See Detail Spec Expiration Date 03/16/2022 - 231403/13/22 03/13/22 03/13/22 Range/Units 06:24 06:24 06:24 WBC (3.8-10.6) k/uL RBC (3.80-5.40) m/uL Hgb (11.4-16.0) gm/dL Hct (34.0-46.0) % MCV (80.0-100.0) fL MCH (25.0-35.0) pg MCHC (31.0-37.0) g/dL RDW (11.5-15.5) % Plt Count (150-450) k/uL MPV Neutrophils % % Lymphocytes % % Monocytes % % Eosinophils % % Basophils % % Neutrophils # (1.3-7.7) k/uL Lymphocytes # (1.0-4.8) k/uL Monocytes # (0-1.0) k/uL Eosinophils # (0-0.7) k/uL Basophils # (0-0.2) k/uL Hypochromasia PT (9.0-12.0) sec INR (<1.2) APTT (22.0-30.0) sec Sodium 139 (137-145) mmol/L Potassium 4.1 (3.5-5.1) mmol/L Chloride 105 (98-107) mmol/L Carbon Dioxide 27 (22-30) mmol/L Anion Gap 7 mmol/L BUN 48 H (7-17) mg/dL Creatinine 0.76 (0.52-1.04) mg/dL Est GFR (CKD-EPI)AfAm 89 (>60 ml/min/1.73 sqM) Est GFR (CKD-EPI)NonAf 77 (>60 ml/min/1.73 sqM) Glucose 229 H (74-99) mg/dL Lactic Ac Sepsis Rflx Plasma Lactic Acid Larry 4.2 H* (0.7-2.0) mmol/L Calcium 7.9 L (8.4-10.2) mg/dL Magnesium 1.3 L (1.6-2.3) mg/dL Total Bilirubin 0.5 (0.2-1.3) mg/dL AST 27 (14-36) U/L ALT 30 (4-34) U/L Alkaline Phosphatase 42 (38-126) U/L Troponin I <0.012 (0.000-0.034) ng/mL Total Protein 4.3 L (6.3-8.2) g/dL Albumin 2.5 L (3.5-5.0) g/dL Lipase 116 (23-300) U/L Blood Type Blood Type Recheck Bld Type Recheck Status Antibody Screen Crossmatch Spec Expiration Date 03/13/22 Range/Units 07:00 WBC (3.8-10.6) k/uL RBC (3.80-5.40) m/uL Hgb (11.4-16.0) gm/dL Hct (34.0-46.0) % MCV (80.0-100.0) fL MCH (25.0-35.0) pg MCHC (31.0-37.0) g/dL RDW (11.5-15.5) % Plt Count (150-450) k/uL MPV Neutrophils % % Lymphocytes % % Monocytes % % Eosinophils % % Basophils % % Neutrophils # (1.3-7.7) k/uL Lymphocytes # (1.0-4.8) k/uL Monocytes # (0-1.0) k/uL Eosinophils # (0-0.7) k/uL Basophils # (0-0.2) k/uL Hypochromasia PT (9.0-12.0) sec INR (<1.2) APTT (22.0-30.0) sec Sodium (137-145) mmol/L Potassium (3.5-5.1) mmol/L Chloride (98-107) mmol/L Carbon Dioxide (22-30) mmol/L Anion Gap mmol/L BUN (7-17) mg/dL Creatinine (0.52-1.04) mg/dL Est GFR (CKD-EPI)AfAm (>60 ml/min/1.73 sqM) Est GFR (CKD-EPI)NonAf (>60 ml/min/1.73 sqM) Glucose (74-99) mg/dL Lactic Ac Sepsis Rflx Y Plasma Lactic Acid Larry (0.7-2.0) mmol/L Calcium (8.4-10.2) mg/dL Magnesium (1.6-2.3) mg/dL Total Bilirubin (0.2-1.3) mg/dL AST (14-36) U/L ALT (4-34) U/L Alkaline Phosphatase (38-126) U/L Troponin I (0.000-0.034) ng/mL Total Protein (6.3-8.2) g/dL Albumin (3.5-5.0) g/dL Lipase (23-300) U/L Blood Type Blood Type Recheck Bld Type Recheck Status Antibody Screen Crossmatch Spec Expiration Date Critical Care Time Critical Care Time: Yes Total Critical Care Time: 35 Disposition Clinical Impression: Hematemesis, Gastric outlet obstruction, Anemia, Hematoma of duodenum Disposition: OTHER INSTITUTION NOT DEFINED Condition: Fair Referrals: Kristian Car MD [Primary Care Provider] - 1-2 days Time of Disposition: 09:03 - Out of Hospital Transfer - Req. Specs Out of Hospital Transfer - Requested Specifics: Other Emergency Center ([facility]
--- NOTE | 2022-03-13 08:02 | CT ---
EXAMINATION TYPE: CT abdomen pelvis w con DATE OF EXAM: 03/13/2022 HISTORY: vomiting blood. CT DLP: 480.6mGycm Automated Exposure Control for Dose Reduction was Utilized. CONTRAST: CT scan of the abdomen and pelvis is performed without oral but with IV Contrast, patient injected wi th 100 mL of Isovue 300. COMPARISON: Recent CT January 26, 2012 FINDINGS: LUNG BASES: Partial visualization of overlying sternal wires. LIVER/GB: Mild extrahepatic biliary dilatation up to 13 mm is less prominent from 2012 CT. Gallbladde r not seen and presumed surgically absent. PANCREAS: No significant abnormality is seen. SPLEEN: No significant abnormality is seen. ADRENALS: No significant abnormality is seen. KIDNEYS: There are 2 adjacent thin-walled cysts upper pole right kidney redemonstrated slightly small er in size from 2012 CT. Occasional smaller thin-walled cysts scattered throughout the left kidney. BOWEL: Suboptimal evaluation without enteric contrast. Slightly prominent small bowel loops with mild to moderate generalized wall thickening. Colon shows fairly diffuse moderate wall thickening with so me relative sparing of the cecum and rectum. There is a distended stomach with air-fluid level. There is heterogeneous severe concentric thickening beginning near first portion of duodenum extending int o second portion with persistent moderate wall thickening through third and fourth portion of duodenu m. The duodenal jejunal junction immediately extends inferiorly into right of midline. This is consis tent with underlying malrotation. There is incidental 2.1 cm duodenal diverticulum coronal image 64 r edemonstrated near the duodenal ampulla. No free air is seen. UTERUS/ADNEXA: Uterus surgically absent or markedly atrophic. LYMPH NODES: No greater than 1cm abdominal or pelvic lymph nodes are appreciated. OSSEOUS STRUCTURES: Spine is straightened with moderate multilevel anterior and lateral spurring. Mod [id number] disc space narrowing with endplate sclerosis L3-L4 level. OTHER: Severe diffuse atherosclerotic change of the aorta extends into branch vessels. Severe narrowi ng at origin of the left renal artery coronal image 64 for reference. Cannot exclude significant sten osis at origin of the SMA sagittal images 65 through 67 for reference. IMPRESSION: 1. Severe heterogeneous concentric wall thickening first and second portion of duodenum could reflect duodenal hematoma and is suspicious for causing gastric outlet obstruction with distended stomach an d air-fluid level with dependent debris. Underlying mass or neoplasm is in differential. There is als o significant wall thickening of small and large bowel loops throughout the abdomen and pelvis. Diffe rential includes infectious, ischemic, and inflammatory etiologies. Patient has background severe dif fuse atherosclerotic change. Significant stenosis at origin of left renal artery is present. Further workup and follow-up is advised.
[2022-03-13 09:54] VITALS: RESP 18
[2022-03-13 10:21] LABS: Appearance,Urine Clear (Clear); Bilirubin,Urine Negative (Negative); Blood,Urine Trace (Negative); Color,Urine Yellow; Glucose,Urine (UA) 2+ (Negative); Ketones,Urine 1+ (Negative); Leukocyte Esterase,Urine Negative (Negative); Nitrite,Urine Negative (Negative); Protein,Urine Trace (Negative); RBC,Urine 5 /hpf (0-5); Specific Gravity,Urine 1.045 (1.001-1.035); Squamous Epithelial Cell,Urine 1 /hpf (0-4); Urobilinogen,Urine <2.0 mg/dL (<2.0); WBC,Urine 1 /hpf (0-5)
[2022-03-13 10:32] VITALS: BP 120/60; TEMP 98.8
[2022-03-13 10:42] VITALS: PULSE 89
== END 2022-03-13 10:40 | disposition other institution (70) ==
LOC: EC 06:01
DX: K92.0 Hematemesis (principal); K31.1 Adult hypertrophic pyloric stenosis; M79.81 Nontraumatic hematoma of soft tissue; R74.02 Elevation of levels of lactic acid dehydrogenase [LDH]; E11.9 Type 2 diabetes mellitus without complications; I10 Essential (primary) hypertension; M19.90 Unspecified osteoarthritis, unspecified site; Z91.09 Other allergy status, other than to drugs and biological substances; Z88.2 Allergy status to sulfonamides; Z79.899 Other long term (current) drug therapy; Z79.51 Long term (current) use of inhaled steroids
CPT/HCPCS: 36415; 86900; 86901; 80053; 83605; 83690; 83735; 84484; 85025; 85610; 85730; 86850; 86920; 81001; 74177; 99291; 96365; 96368; 96375; P9016; J2765; J2405; J3475; J0131; C9113; Q9967

== ENCOUNTER 2022-04-09 11:32 | Emergency (ER) | payer MEDICARE, OTHER ==
[2022-04-09 12:16] VITALS: TEMP 98.1
[2022-04-09] MEDS ORDERED: SODIUM CHLORIDE 0.9% 500 ML 500 ML IV STA (14:16)
[2022-04-09] MEDS ORDERED: ONDANSETRON 4 MG/2 ML VIAL IVP STA (14:30)
[2022-04-09 14:51] LABS: Basophils # (A) 0.1 k/uL (0-0.2); Basophils % (A) 1 %; Eosinophils # (A) 0.1 k/uL (0-0.7); Eosinophils % (A) 1 %; HCT 36.1 % (34.0-46.0); Hypochromasia Marked; Lymphocytes # (A) 2.3 k/uL (1.0-4.8); Lymphocytes % (A) 31 %; MCH 28.6 pg (25.0-35.0); MCHC 30.4 g/dL (31.0-37.0); MCV 94.3 fL (80.0-100.0); Mean Platelet Volume 8.6; Monocytes # (A) 0.5 k/uL (0-1.0); Monocytes % (A) 7 %; Neutrophils # (A) 4.2 k/uL (1.3-7.7); Neutrophils % (A) 58 %; Platelet Count 280 k/uL (150-450); RBC 3.83 m/uL (3.80-5.40); RDW 14.7 % (11.5-15.5); WBC 7.2 k/uL (3.8-10.6)
[2022-04-09 15:00] LABS: Albumin 3.4 g/dL (3.5-5.0); Calcium 8.8 mg/dL (8.4-10.2); Magnesium 1.6 mg/dL (1.6-2.3); Potassium 4.5 mmol/L (3.5-5.1); Total Bilirubin 0.6 mg/dL (0.2-1.3); Total Protein 5.8 g/dL (6.3-8.2)
[2022-04-09 15:10] LABS: Partial Thromboplastin Time 23.6 sec (22.0-30.0); Prothrombin Time 10.8 sec (9.0-12.0)
--- NOTE | 2022-04-09 15:37 | ED ---
General Adult HPI - General Chief complaint: GI Bleed Stated complaint: GI/Vag bleeding Time Seen by Provider: 04/09/22 14:20 Source: patient, RN notes reviewed, old records reviewed Mode of arrival: wheelchair Limitations: no limitations - History of Present Illness Initial comments: This is a 76-year-old female presents emergency department with past medical history significant for hematemesis in the past also has been diagnosed with an ulcer in her stomach. Patient states she came in today because she had noticed she's having dark stools. Patient denies shortness of breath but does complain of nausea over the last 4 days. Patient denies any vomiting or diarrhea. Patient denies any chest pain or palpitations. Patient denies lightheadedness or dizziness. - Related Data Home Medications Medication Instructions Recorded Confirmed Atorvastatin Calcium [Lipitor] 80 mg PO HS 12/25/17 03/13/22 metFORMIN HCL 1,000 mg PO BID 12/25/17 03/13/22 Gabapentin [Neurontin] 100 mg PO HS PRN 08/01/20 03/13/22 traMADol HCL [Ultram] 50 mg PO BID PRN 08/01/20 03/13/22 Isosorbide Mononitrate ER [Imdur] 15 mg PO DAILY 03/13/22 03/13/22 Metoprolol Tartrate [Lopressor] 12.5 mg PO DAILY 03/13/22 03/13/22 Midodrine HCl [ProAmantine] 2.5 mg PO BID 03/13/22 03/13/22 PARoxetine [Paxil] 20 mg PO DAILY 03/13/22 03/13/22 traZODone HCL 150 mg PO HS 03/13/22 03/13/22 Allergies Allergy/AdvReac Type Severity Reaction Status Date / Time adhesive tape Allergy Rash/Hives Verified 04/09/22 12:16 Sulfa (Sulfonamide Allergy Unknown Verified 04/09/22 12:16 Antibiotics) Review of Systems ROS Statement: Those systems with pertinent positive or pertinent negative responses have been documented in the HPI. ROS Other: All systems not noted in ROS Statement are negative. Past Medical History Past Medical History: Coronary Artery Disease (CAD), Chest Pain / Angina, Diabetes Mellitus, Hypertension, Osteoarthritis (OA) Additional Past Medical History / Comment(s): back pain History of Any Multi-Drug Resistant Organisms: None Reported Past Surgical History: Back Surgery, Coronary Bypass/CABG, Hysterectomy, Orthopedic Surgery, Tonsillectomy Additional Past Surgical History / Comment(s): STENT -PANCREAS, Anterior Cervical Fusion 08/29/20 Past Psychological History: No Psychological Hx Reported Smoking Status: Current every day smoker Past Alcohol Use History: None Reported Past Drug Use History: None Reported General Exam - General Exam Comments Initial Comments: GENERAL: Patient is well-developed and well-nourished. Patient is nontoxic and well- hydrated and is in no acute distress. ENT: Neck is soft and supple. No significant lymphadenopathy is noted. Oropharynx is clear. Moist mucous membranes. Neck has full range of motion without eliciting any pain. EYES: The sclera were anicteric and conjunctiva were pink and moist. Extraocular movements were intact and pupils were equal round and reactive to light. Eyelids were unremarkable. PULMONARY: Unlabored respirations. Good breath sounds bilaterally. No audible rales rhonchi or wheezing was noted. CARDIOVASCULAR: There is a regular rate and rhythm without any murmurs gallops or rubs. ABDOMEN: Soft and nontender with normal bowel sounds. RECTAL: On rectal exam the stool is brown and there was no black stool noted. SKIN: Skin is clear with no lesions or rashes and otherwise unremarkable. NEUROLOGIC: Patient is alert and oriented x3. Cranial nerves II through XII are grossly intact. Motor and sensory are also intact. Normal speech, volume and content. Symmetrical smile. MUSCULOSKELETAL: Normal extremities with adequate strength and full range of motion. No lower extremity swelling or edema. No calf tenderness. LYMPHATICS: No significant lymphadenopathy is noted PSYCHIATRIC: Normal psychiatric evaluation. Limitations: no limitations Course Vital Signs 04/09/22 04/09/22 12:14 14:44 Temperature 98.1 F Pulse Rate 67 74 Respiratory 16 12 Rate Blood Pressure 111/63 148/70 O2 Sat by Pulse 100 99 Oximetry Medical Decision Making - Medical Decision Making Hemoglobin came back at 11 which was much improved from her hemoglobin dropped a month ago. The stool occult was negative. I went back into the room and repeat examination the patient she was feeling better she still was a little bit nauseated though. Patient wanted to follow-up with her doctor she had an appointment on Thursday. - Lab Data Result diagrams: 04/09/22 14:28 04/09/22 14:28 Lab Results 04/09/22 04/09/22 04/09/22 Range/Units 14:28 14:28 14:28 WBC 7.2 (3.8-10.6) k/uL RBC 3.83 (3.80-5.40) m/uL Hgb 11.0 L (11.4-16.0) gm/dL Hct 36.1 (34.0-46.0) % MCV 94.3 (80.0-100.0) fL MCH 28.6 (25.0-35.0) pg MCHC 30.4 L (31.0-37.0) g/dL RDW 14.7 (11.5-15.5) % Plt Count 280 (150-450) k/uL MPV 8.6 Neutrophils % 58 % Lymphocytes % 31 % Monocytes % 7 % Eosinophils % 1 % Basophils % 1 % Neutrophils # 4.2 (1.3-7.7) k/uL Lymphocytes # 2.3 (1.0-4.8) k/uL Monocytes # 0.5 (0-1.0) k/uL Eosinophils # 0.1 (0-0.7) k/uL Basophils # 0.1 (0-0.2) k/uL Hypochromasia Marked PT 10.8 (9.0-12.0) sec INR 1.0 (<1.2) APTT 23.6 (22.0-30.0) sec Sodium (137-145) mmol/L Potassium (3.5-5.1) mmol/L Chloride (98-107) mmol/L Carbon Dioxide (22-30) mmol/L Anion Gap mmol/L BUN (7-17) mg/dL Creatinine (0.52-1.04) mg/dL Est GFR (CKD-EPI)AfAm (>60 ml/min/1.73 sqM) Est GFR (CKD-EPI)NonAf (>60 ml/min/1.73 sqM) Glucose (74-99) mg/dL Plasma Lactic Acid Larry (0.7-2.0) mmol/L Calcium (8.4-10.2) mg/dL Magnesium (1.6-2.3) mg/dL Total Bilirubin (0.2-1.3) mg/dL AST (14-36) U/L ALT (4-34) U/L Alkaline Phosphatase (38-126) U/L Troponin I (0.000-0.034) ng/mL Total Protein (6.3-8.2) g/dL Albumin (3.5-5.0) g/dL Stool Occult Blood Negative (Negative) 04/09/22 04/09/22 04/09/22 Range/Units 14:28 14:28 14:28 WBC (3.8-10.6) k/uL RBC (3.80-5.40) m/uL Hgb (11.4-16.0) gm/dL Hct (34.0-46.0) % MCV (80.0-100.0) fL MCH (25.0-35.0) pg MCHC (31.0-37.0) g/dL RDW (11.5-15.5) % Plt Count (150-450) k/uL MPV Neutrophils % % Lymphocytes % % Monocytes % % Eosinophils % % Basophils % % Neutrophils # (1.3-7.7) k/uL Lymphocytes # (1.0-4.8) k/uL Monocytes # (0-1.0) k/uL Eosinophils # (0-0.7) k/uL Basophils # (0-0.2) k/uL Hypochromasia PT (9.0-12.0) sec INR (<1.2) APTT (22.0-30.0) sec Sodium 139 (137-145) mmol/L Potassium 4.5 (3.5-5.1) mmol/L Chloride 102 (98-107) mmol/L Carbon Dioxide 30 (22-30) mmol/L Anion Gap 7 mmol/L BUN 18 H (7-17) mg/dL Creatinine 0.77 (0.52-1.04) mg/dL Est GFR (CKD-EPI)AfAm 87 (>60 ml/min/1.73 sqM) Est GFR (CKD-EPI)NonAf 76 (>60 ml/min/1.73 sqM) Glucose 100 H (74-99) mg/dL Plasma Lactic Acid Larry 1.1 (0.7-2.0) mmol/L Calcium 8.8 (8.4-10.2) mg/dL Magnesium 1.6 (1.6-2.3) mg/dL Total Bilirubin 0.6 (0.2-1.3) mg/dL AST 50 H (14-36) U/L ALT 33 (4-34) U/L Alkaline Phosphatase 95 (38-126) U/L Troponin I <0.012 (0.000-0.034) ng/mL Total Protein 5.8 L (6.3-8.2) g/dL Albumin 3.4 L (3.5-5.0) g/dL Stool Occult Blood (Negative) Disposition Clinical Impression: Nausea, Dark stools Disposition: HOME SELF-CARE Condition: Good Instructions (If sedation given, give patient instructions): Gastrointestinal Bleeding (ED) Additional Instructions: Patient should return to emergency department if there is any bright red blood per rectum or black stools. Patient should also return for any difficulty breathing or shortness of breath or any lightheadedness or dizziness. Is patient prescribed a controlled substance at d/c from ED?: No Referrals: Kristian Car MD [Primary Care Provider] - 1-2 days Time of Disposition: 15:39
[2022-04-09] MEDS ORDERED: ONDANSETRON 4 MG ODT STARTER PACK 2 TAB BTL PO STA (16:05)
[2022-04-09 16:17] VITALS: BP 144/69; PULSE 77; RESP 14
== END 2022-04-09 16:30 | disposition home or self-care (01) ==
LOC: EC 11:32
DX: R11.0 Nausea (principal); K92.1 Melena; I25.10 Atherosclerotic heart disease of native coronary artery without angina pectoris; E11.9 Type 2 diabetes mellitus without complications; I10 Essential (primary) hypertension; M19.90 Unspecified osteoarthritis, unspecified site; F17.200 Nicotine dependence, unspecified, uncomplicated; Z79.84 Long term (current) use of oral hypoglycemic drugs; Z79.899 Other long term (current) drug therapy; Z91.048 Other nonmedicinal substance allergy status; Z88.2 Allergy status to sulfonamides
CPT/HCPCS: 36415; 86900; 86901; 80053; 83605; 83735; 84484; 85025; 85610; 85730; 86850; 82272; 99283; 96374; 96361; J2405; S0119

== ENCOUNTER → 2022-04-25 | Outpatient (CLI) | payer MEDICARE, OTHER ==
--- NOTE | 2022-04-25 13:59 | XR ---
Abdomen HISTORY: Nausea Frontal view the abdomen on 2 images correlated to prior exam dated 03/27/2012, CT scan 03/13/2022 Patient is post median sternotomy. Abnormal appearance of the proximal small bowel seen on CT not see n on plain film. There are dense vascular calcifications present. Lung bases are clear. Degenerative disc changes are present in the visualized spine. There is a spinal curvature. No evident bowel obstr uction or pneumoperitoneum. IMPRESSION: Nonobstructive bowel gas pattern. Additional findings above.
[2022-04-25 15:59] LABS: Basophils # (A) 0.05 X 10*3/uL (0.00-0.10); Basophils % (A) 0.7 %; Eosinophils # (A) 0.09 X 10*3/uL (0.04-0.35); Eosinophils % (A) 1.2 %; HCT 37.5 % (37.2-46.3); HGB 11.2 g/dL (12.0-15.0); Immature Grans, Automated 0.4 %; Lymphocytes # (A) 2.16 X 10*3/uL (0.90-5.00); MCH 28.5 pg (27.0-32.0); MCHC 29.9 g/dL (32.0-37.0); MCV 95.4 fL (80.0-97.0); Mean Platelet Volume 11.4 fL (9.5-12.2); Monocytes # (A) 0.55 X 10*3/uL (0.20-1.00); Monocytes % (A) 7.4 %; NRBC Per 100 WBC 0 /100 WBCS (0.0-0.0); Neutrophils # (A) 4.57 X 10*3/uL (1.80-7.70); Neutrophils % (A) 61.3 %; Platelet Count 219 X 10*3/uL (140-440); RBC 3.93 X 10*6/uL (4.10-5.20); RDW 17.1 % (11.5-14.5); WBC 7.45 X 10*3/uL (4.50-10.00)
[2022-04-25 16:41] LABS: Appearance,Urine Clear (Clear); Bilirubin,Urine Negative (Negative); Blood,Urine Negative (Negative); Color,Urine Yellow (Yellow); Ketones,Urine Negative (Negative); Nitrite,Urine Negative (Negative); Specific Gravity,Urine 1.019 (1.001-1.030); Urobilinogen,Urine 0.2 (0.2,1.0)
[2022-04-25 17:42] LABS: Bacteria,Urine None Seen /HPF (None Seen); Calcium Oxalate Crystals,Urine Present /LPF (None Seen)
== END | disposition home or self-care (01) ==
LOC: LABWHC1 09:43
PROVIDERS: ATTEND Family Medicine
DX: N30.01 Acute cystitis with hematuria (principal); K25.4 Chronic or unspecified gastric ulcer with hemorrhage; R11.0 Nausea
CPT/HCPCS: 36415; 74018; 81001; 85025

== ENCOUNTER 2023-07-16 15:04 | Observation (INO) | payer MEDICARE, OTHER ==
[2023-07-16] MEDS ORDERED: SODIUM CHLORIDE 0.9% 1,000 ML IV STA (15:22)
--- NOTE | 2023-07-16 15:22 | ED ---
Abdominal Pain HPI - General Source: patient, EMS, RN notes reviewed Mode of arrival: EMS <Jamaica Flores - Last Filed: 07/16/23 19:46> <Maxwell Barnes - Last Filed: 07/16/23 21:04> - General Chief Complaint: Abdominal Pain Stated Complaint: kidney stone Time Seen by Provider: 07/16/23 15:07 - History of Present Illness Initial Comments: Patient is a 77-year-old female presenting via EMS with chief complaint of possible kidney stone. Patient has a history of kidney stones and triple bypass. Patient states the left sided flank pain started a couple of hours ago. She received zofran and 10 mg morphine by EMS with improvement of pain. Patient states the pain radiates from her left flank to her suprapubic region. Patient denies any dysuria or increasing frequency. She does report that she has been recently ill with viral illness. Patient denies any current nausea and rates her pain a 7 out of 10. She describes her pain as sharp and stabbing. Patient denies any chest pain, shortness of breath, constipation/diarrhea or peripheral edema. (Jamaica Flores) - Related Data Home Medications Medication Instructions Recorded Confirmed Atorvastatin Calcium [Lipitor] 80 mg PO HS 12/25/17 03/13/22 metFORMIN HCL 1,000 mg PO BID 12/25/17 03/13/22 Gabapentin [Neurontin] 100 mg PO HS PRN 08/01/20 03/13/22 traMADol HCL [Ultram] 50 mg PO BID PRN 08/01/20 03/13/22 Isosorbide Mononitrate ER [Imdur] 15 mg PO DAILY 03/13/22 03/13/22 Metoprolol Tartrate [Lopressor] 12.5 mg PO DAILY 03/13/22 03/13/22 Midodrine HCl [ProAmantine] 2.5 mg PO BID 03/13/22 03/13/22 PARoxetine [Paxil] 20 mg PO DAILY 03/13/22 03/13/22 traZODone HCL 150 mg PO HS 03/13/22 03/13/22 Allergies Allergy/AdvReac Type Severity Reaction Status Date / Time adhesive tape Allergy Rash/Hives Verified 04/09/22 12:16 Sulfa (Sulfonamide Allergy Unknown Verified 04/09/22 12:16 Antibiotics) Review of Systems ROS Other: All systems not noted in ROS Statement are negative. <Jamaica Flores - Last Filed: 07/16/23 19:46> ROS Other: All systems not noted in ROS Statement are negative. <Maxwell Barnes - Last Filed: 07/16/23 21:04> ROS Statement: Those systems with pertinent positive or pertinent negative responses have been documented in the HPI. Past Medical History Past Medical History: Coronary Artery Disease (CAD), Chest Pain / Angina, Diabetes Mellitus, Hypertension, Osteoarthritis (OA) Additional Past Medical History / Comment(s): back pain History of Any Multi-Drug Resistant Organisms: None Reported Past Surgical History: Back Surgery, Coronary Bypass/CABG, Hysterectomy, Orthopedic Surgery, Tonsillectomy Additional Past Surgical History / Comment(s): STENT -PANCREAS, Anterior C ervical Fusion 08/29/20 Past Psychological History: No Psychological Hx Reported Smoking Status: Current every day smoker Past Alcohol Use History: None Reported Past Drug Use History: None Reported <Jamaica Flores - Last Filed: 07/16/23 19:46> General Exam General appearance: alert, in no apparent distress Respiratory exam: Present: normal lung sounds bilaterally. Absent: respiratory distress, wheezes, rales, rhonchi, stridor Cardiovascular Exam: Present: regular rate, normal rhythm, normal heart sounds. Absent: systolic murmur, diastolic murmur, rubs, gallop, clicks GI/Abdominal exam: Present: soft, tenderness (suprapubic LLQ/LUQ), normal bowel sounds Back exam: Present: normal inspection, CVA tenderness (L) Neurological exam: Present: alert, oriented X3, CN II-XII intact Psychiatric exam: Present: normal affect, normal mood Skin exam: Present: warm, dry, intact, normal color. Absent: rash <Jamaica Flores - Last Filed: 07/16/23 19:46> Course <Jamaica Flores - Last Filed: 07/16/23 19:46> Vital Signs 07/16/23 07/16/23 15:10 17:40 Temperature 98.1 F 97.8 F Pulse Rate 69 74 Respiratory 18 17 Rate Blood Pressure 152/82 156/80 O2 Sat by Pulse 92 L 94 L Oximetry - Reevaluation(s) Reevaluation #1: 12/21/23 16:30 Patient reevaluated patient asking for more pain medication. (Jamaica Flores) Medical Decision Making - Lab Data Result diagrams: 07/16/23 15:33 07/16/23 15:33 - Radiology Data Radiology results: report reviewed, image reviewed <Jamaica Flores - Last Filed: 07/16/23 19:46> - Lab Data Result diagrams: 07/16/23 15:33 07/16/23 15:33 <Maxwell Barnes - Last Filed: 07/16/23 21:04> - Medical Decision Making Was pt. sent in by a medical professional or institution (, PA, INSURANCE ANALYST, urgent care, hospital, or skilled nursing...) When possible be specific @ -No Did you speak to anyone other than the patient for history (EMS, parent, family, police, friend...)? What history was obtained from this source @ -No Did you review nursing and triage notes (agree or disagree)? Why? @ -I reviewed and agree with nursing and triage notes Were old charts reviewed (outside hosp., previous admission, EMS record, old EKG, old radiological studies, urgent care reports/EKG's, skilled nursing records)? Report findings @ -No old charts were reviewed Differential Diagnosis (chest pain, altered mental status, abdominal pain women, abdominal pain men, vaginal bleeding, weakness, fever, dyspnea, syncope, headache, dizziness, GI bleed, back pain, seizure, CVA, palpatations, mental health, musculoskeletal)? @ -Differential Abdominal Pain Women: Appendicitis, Cholecystitis, di verticulosis, ischemic bowel, pancreatitis, hepatitis, UTI, gastroenteritis, AAA, incarcerated hernia, bowel obstruction, constipation, inflammatory bowel, hepatitis, peptic ulcer disease, splenic infarction, perforated viscus, vulvitis, ovarian torsion, PID, kidney stone, placenta abruption, this is not meant to be an all-inclusive list EKG interpreted by me (3pts min.). @ -None X-rays interpreted by me (1pt min.). @ -None done CT interpreted by me (1pt min.). @ -CT abdomen and pelvis is significant for 6.2 mm stone in the distal left ureter with moderate left-sided hydronephrosis, perinephric and periureteral stranding. No bowel obstruction and severe atherosclerosis present. U/S interpreted by me (1pt. min.). @ -None done What testing was considered but not performed or refused? (CT, X-rays, U/S, labs)? Why? @ -None What meds were considered but not given or refused? Why? @ -None Did you discuss the management of the patient with other professionals (professionals i.e. , PA, INSURANCE ANALYST, lab, RT, psych nurse, social media specialist, high tension tester, teacher, rating officer, top case assembler)? Give summary @ -No Was smoking cessation discussed for >3mins.? @ -No Was critical care preformed (if so, how long)? @ -No Were there social determinants of health that impacted care today? How? (Homelessness, low income, unemployed, alcoholism, drug addiction, transportation, low edu. Level, literacy, decrease access to med. care, detention, rehab)? @ -No Was there de-escalation of care discussed even if they declined (Discuss DNR or withdrawal of care, Hospice)? DNR status @ -No What co-morbidities impacted this encounter? (DM, HTN, Smoking, COPD, CAD, Cancer, CVA, ARF, Chemo, Hep., AIDS, mental health diagnosis, sleep apnea, morbid obesity)? @ -None Was patient admitted / discharged? Hospital course, mention meds given and route, prescriptions, significant lab abnormalities, going to OR and other pertinent info. @ -Pending. Patient is 77-year-old female presenting to the ER via EMS with chief complaint of flank pain. Upon examination, patient's vital signs are stable. Physical exam was significant for left CVA tenderness. Patient also had left-sided abdominal pain. Labs obtained in the ER showed white blood cell count of 8.7, lactic 0.8. BUN 23, creatinine 0.93. CT abdomen and pelvis was significant for a 6.2 mm stone in the distal left ureter with moderate left sided hydronephrosis, perinephric and periureteral stranding. Patient received 2 mg IV morphine, 5 mg IV Reglan, 1 L of IV fluids. This case was signed out to Chandler Barnes PA-C pending UA results and disposition. (Jamaica Flores) Signed out to me by Geraldo PEDRO. CT showed distal left 6.2 cm stone. Laboratory studies reviewed. Urine does show some evidence of infection. Case discussed with Dr. Lozano, at this time recommends admission to medicine with him on consult. Recommends urine culture, antibiotics, and keeping patient nothing by mouth after midnight. Plan of care discussed with patient who is in agreement. Case discussed with Dr. Voss, who accepts admission. (Maxwell Barnes) - Lab Data Lab Results 07/16/23 07/16/23 07/16/23 Range/Units 15:33 15:33 19:14 WBC 8.7 (3.8-10.6) k/uL RBC 3.92 (3.80-5.40) m/uL Hgb 13.1 (11.4-16.0) gm/dL Hct 38.5 (34.0-46.0) % MCV 98.2 (80.0-100.0) fL MCH 33.4 (25.0-35.0) pg MCHC 34.0 (31.0-37.0) g/dL RDW 13.9 (11.5-15.5) % Plt Count 166 (150-450) k/uL MPV 9.8 Sodium 140 (137-145) mmol/L Potassium 4.2 (3.5-5.1) mmol/L Chloride 107 (98-107) mmol/L Carbon Dioxide 25 (22-30) mmol/L Anion Gap 8 mmol/L BUN 23 H (7-17) mg/dL Creatinine 0.93 (0.52-1.04) mg/dL Est GFR (CKD-EPI)AfAm 70 (>60 ml/min/1.73 sqM) Est GFR (CKD-EPI)NonAf 60 (>60 ml/min/1.73 sqM) Glucose 131 H (74-99) mg/dL Plasma Lactic Acid Larry 0.8 (0.7-2.0) mmol/L Calcium 8.9 (8.4-10.2) mg/dL Total Bilirubin 1.0 (0.2-1.3) mg/dL AST 24 (14-36) U/L ALT 10 (4-34) U/L Alkaline Phosphatase 63 (38-126) U/L Total Protein 6.0 L (6.3-8.2) g/dL Albumin 3.3 L (3.5-5.0) g/dL Urine Color Urine Appearance (Clear) Urine pH (5.0-8.0) Ur Specific [place] (1.001-1.035) Urine Protein (Negative) Urine Glucose (UA) (Negative) Urine Ketones (Negative) Urine Blood (Negative) Urine Nitrite (Negative) Urine Bilirubin (Negative) Urine Urobilinogen (<2.0) mg/dL Ur Leukocyte Esterase (Negative) Urine RBC (0-5) /hpf Urine WBC (0-5) /hpf Ur Squamous Epith Cells (0-4) /hpf Urine Bacteria (None) /hpf Hyaline Casts (0-2) /lpf Urine Mucus (None) /hpf 07/16/23 Range/Units 19:34 WBC (3.8-10.6) k/uL RBC (3.80-5.40) m/uL Hgb (11.4-16.0) gm/dL Hct (34.0-46.0) % MCV (80.0-100.0) fL MCH (25.0-35.0) pg MCHC (31.0-37.0) g/dL RDW (11.5-15.5) % Plt Count (150-450) k/uL MPV Sodium (137-145) mmol/L Potassium (3.5-5.1) mmol/L Chloride (98-107) mmol/L Carbon Dioxide (22-30) mmol/L Anion Gap mmol/L BUN (7-17) mg/dL Creatinine (0.52-1.04) mg/dL Est GFR (CKD-EPI)AfAm (>60 ml/min/1.73 sqM) Est GFR (CKD-EPI)NonAf (>60 ml/min/1.73 sqM) Glucose (74-99) mg/dL Plasma Lactic Acid Larry (0.7-2.0) mmol/L Calcium (8.4-10.2) mg/dL Total Bilirubin (0.2-1.3) mg/dL AST (14-36) U/L ALT (4-34) U/L Alkaline Phosphatase (38-126) U/L Total Protein (6.3-8.2) g/dL Albumin (3.5-5.0) g/dL Urine Color Light Yellow Urine Appearance Clear (Clear) Urine pH 5.5 (5.0-8.0) Ur Specific [place] 1.017 (1.001-1.035) Urine Protein Trace H (Negative) Urine Glucose (UA) Negative (Negative) Urine Ketones Negative (Negative) Urine Blood Large H (Negative) Urine Nitrite Negative (Negative) Urine Bilirubin Negative (Negative) Urine Urobilinogen <2.0 (<2.0) mg/dL Ur Leukocyte Esterase Large H (Negative) Urine RBC 109 H (0-5) /hpf Urine WBC 14 H (0-5) /hpf Ur Squamous Epith Cells 4 (0-4) /hpf Urine Bacteria Occasional H (None) /hpf Hyaline Casts 12 H (0-2) /lpf Urine Mucus Rare H (None) /hpf Disposition <Jamaica Flores - Last Filed: 07/16/23 19:46> Time of Disposition: 21:01 <Maxwell Barnes - Last Filed: 07/16/23 21:04> Clinical Impression: Kidney stone Disposition: ADMITTED IP TO THIS [facility] Condition: Good Referrals: Kristian Car [Primary Care Provider] - 1-2 days
[2023-07-16 16:13] LABS: HCT 38.5 % (34.0-46.0); HGB 13.1 gm/dL (11.4-16.0); MCH 33.4 pg (25.0-35.0); MCV 98.2 fL (80.0-100.0); Mean Platelet Volume 9.8; Platelet Count 166 k/uL (150-450); RBC 3.92 m/uL (3.80-5.40); RDW 13.9 % (11.5-15.5); WBC 8.7 k/uL (3.8-10.6)
--- NOTE | 2023-07-16 16:19 | CT ---
EXAMINATION: CT ABDOMEN AND PELVIS WITHOUT IV CONTRAST DATE OF EXAMINATION: 07/16/2023. COMPARISON: 03/13/2022. INDICATION: Left-sided flank pain with history of renal stones. PROCEDURE: Axial CT of the abdomen and pelvis was performed with sagittal and coronal reformatted i mages without contrast enhancement. The exam is limited because some types of pathology may not be ad equately demonstrated due to lack of contrast enhancement. CT dose lowering techniques were used, to include: automated exposure control, adjustment for patient size, and/or use of iterative reconstruct ion. FINDINGS: LOWER CHEST : The visualized lung bases are clear. There are no pleural or pericardial effusions. T here are severe diffuse coronary artery calcifications. Moderate global cardiomegaly. ABDOMEN: Liver and Biliary system: Normal. Adrenal glands: Normal. Kidneys and ureters: Simple cyst in the upper pole the right kidney measures 3 cm. No right-sided re nal stones, ureteral stones or hydronephrosis. There is moderate left-sided hydronephrosis and perine phric stranding with dilation of the ureter and tortuosity of the ureter down to the level of the dis samy ureter where there is a stone measuring approximately 6.2 mm in diameter. There is moderate periu reteral stranding also seen. Spleen: Normal. Pancreas: Normal. Gallbladder: Appears absent. Lymph nodes, Peritoneum and mesentery: There is no mesenteric or retroperitoneal lymphadenopathy. Gastrointestinal tract: There are no dilated loops of bowel or free intraperitoneal air. . There is no evidence of appendicitis. Aorta/IVC: There is severe vascular calcification throughout the abdominal aorta without evidence o f aneurysmal dilation. IVC normal. Abdominal wall: Normal. PELVIS: Fluid: There is no free fluid in the pelvis. Lymph Nodes: There is no pelvic or inguinal lymphadenopathy.. Urinary bladder: Normal. BONES: There are degenerative disc and facet changes are seen throughout the spine. There are no acu te osseous abnormalities. ADDITIONAL SIGNIFICANT FINDINGS: None. IMPRESSION: 1. 6.2 mm stone in the distal left ureter with moderate left-sided hydronephrosis, perinephric and pe riureteral stranding. 2. No bowel obstruction. 3. Severe atherosclerosis.
[2023-07-16 16:29] LABS: ALT 10 U/L (4-34); African American GFR (CKD) 70 (>60 ml/min/1.73 sqM); Albumin 3.3 g/dL (3.5-5.0); Anion Gap 8 mmol/L; Blood Urea Nitrogen 23 mg/dL (7-17); Calcium 8.9 mg/dL (8.4-10.2); Carbon Dioxide 25 mmol/L (22-30); Chloride 107 mmol/L (98-107); Glucose 131 mg/dL (74-99); Non-African American GFR(CKD) 60 (>60 ml/min/1.73 sqM); Sodium 140 mmol/L (137-145)
[2023-07-16] MEDS ORDERED: MORPHINE SULFATE 2 MG/ML SYRINGE IVP STA (16:34)
[2023-07-16] MEDS ORDERED: METOCLOPRAMIDE 5 MG/ML 2 ML VIAL IVP STA (16:35)
[2023-07-16 16:41] LABS: AST 24 U/L (14-36); Alkaline Phosphatase 63 U/L (38-126); Potassium 4.2 mmol/L (3.5-5.1)
[2023-07-16 19:47] LABS: Appearance,Urine Clear (Clear); Bacteria,Urine Occasional /hpf; Bilirubin,Urine Negative (Negative); Blood,Urine Large (Negative); Color,Urine Light Yellow; Glucose,Urine (UA) Negative (Negative); Hyaline Casts,Urine 12 /lpf (0-2); Ketones,Urine Negative (Negative); Leukocyte Esterase,Urine Large (Negative); Mucus,Urine Rare /hpf; Nitrite,Urine Negative (Negative); PH, Urine 5.5 (5.0-8.0); Protein,Urine Trace (Negative); RBC,Urine 109 /hpf (0-5); Specific Gravity,Urine 1.017 (1.001-1.035); Squamous Epithelial Cell,Urine 4 /hpf (0-4); Urobilinogen,Urine <2.0 mg/dL (<2.0); WBC,Urine 14 /hpf (0-5)
[2023-07-16] MEDS ORDERED: cefTRIAXone IN SWFI 1,000 MG/10 ML SYRINGE IVP STA (21:25)
[2023-07-16] MEDS ORDERED: NALOXONE 0.4 MG/ML 1 ML VIAL IV PRN (21:26)
[2023-07-16] MEDS ORDERED: HYDROmorphone 1 MG/ML 1 ML SYRINGE IVP PRN (21:26)
[2023-07-16] MEDS ORDERED: ONDANSETRON 4 MG/2 ML VIAL IVP PRN (21:26)
[2023-07-16] MEDS: SODIUM CHLORIDE 0.9% 1,000 ML IV SCH (22:05)
--- NOTE | 2023-07-17 10:44 | P.GSCN ---
History of Present Illness Consult date: 07/17/23 Reason for Consult: Left ureteral calculus Requesting physician: Tomer Voss History of present illness: the patient is a 77-year-old white female with a history of kidney stones, which have required endoscopic removal in the past. She experienced gross hematuria several days ago. She presented to the ER yesterday evening with acute onset of left flank pain radiating to the left groin. CT scan has shown evidence of moderate left hydronephrosis due to a 6 mm left distal ureteral calculus.she does not appear to have any renal calculi. Review of Systems - Constitutional Denies chills, Denies fever - Cardiovascular Denies chest pain - Respiratory Denies dyspnea - Gastrointestinal Denies nausea, Denies vomiting - Genitourinary Genitourinary: Reports flank pain, Reports hematuria, Reports kidney stones, Denies dysuria Past Medical History Past Medical History: Coronary Artery Disease (CAD), Chest Pain / Angina, Diabetes Mellitus, Hypertension, Osteoarthritis (OA) Additional Past Medical History / Comment(s): back pain History of Any Multi-Drug Resistant Organisms: None Reported Past Surgical History: Back Surgery, Coronary Bypass/CABG, Hysterectomy, Orthopedic Surgery, Tonsillectomy Additional Past Surgical History / Comment(s): STENT -PANCREAS, Anterior Cervical Fusion 08/29/20 Past Psychological History: No Psychological Hx Reported Smoking Status: Current every day smoker Past Alcohol Use History: None Reported Past Drug Use History: None Reported Medications and Allergies Home Medications Medication Instructions Recorded Confirmed Type Atorvastatin Calcium [Lipitor] 40 mg PO HS 12/25/17 07/16/23 History Albuterol Inhaler [Ventolin Hfa 1 - 2 puff INHALATION RT-Q6H PRN 07/16/23 07/16/23 History Inhaler] Budesonide/Formoterol Fumarate 2 puff INHALATION RT-BID 07/16/23 07/16/23 History [Symbicort 160-4.5 Mcg Inhaler] Calcitonin Nasal [Fortical 1 spray NASAL DAILY 07/16/23 07/16/23 History (Miacalcin)] Paroxetine (Unknown Strength) 1 dose PO DIRECTED 07/16/23 07/16/23 History Pioglitazone [Actos] 15 mg PO DAILY 07/16/23 07/16/23 History traZODone HCL [Desyrel] 25 mg PO HS 07/16/23 07/16/23 History Allergies Allergy/AdvReac Type Severity Reaction Status Date / Time adhesive tape Allergy Rash/Hives Verified 07/16/23 22:28 Sulfa (Sulfonamide Allergy Unknown Verified 07/16/23 22:28 Antibiotics) Childhood Surgical - Exam Vital Signs Temp Pulse Resp BP Pulse Ox 98.1 F 69 18 152/82 92 L 07/16/23 15:10 07/16/23 15:10 07/16/23 15:10 07/16/23 15:10 07/16/23 15:10 - General well developed, well nourished, no distress - Respiratory normal respiratory effort - Abdomen Soft, non-distended, no mass. Mild left lower quadrant tenderness, no guarding or rebound. - Psychiatric oriented to time, oriented to person, oriented to place, speech is normal, memory intact Results - Labs 07/16/23 15:33 07/16/23 15:33 Abnormal Lab Results - Last 24 Hours (Table) 07/16/23 07/16/23 Range/Units 15:33 19:34 BUN 23 H (7-17) mg/dL Glucose 131 H (74-99) mg/dL Total Protein 6.0 L (6.3-8.2) g/dL Albumin 3.3 L (3.5-5.0) g/dL Urine Protein Trace H (Negative) Urine Blood Large H (Negative) Ur Leukocyte Esterase Large H (Negative) Urine RBC 109 H (0-5) /hpf Urine WBC 14 H (0-5) /hpf Urine Bacteria Occasional H (None) /hpf Hyaline Casts 12 H (0-2) /lpf Urine Mucus Rare H (None) /hpf Diabetes panel 07/16/23 Range/Units 15:33 Sodium 140 (137-145) mmol/L Potassium 4.2 (3.5-5.1) mmol/L Chloride 107 (98-107) mmol/L Carbon Dioxide 25 (22-30) mmol/L BUN 23 H (7-17) mg/dL Creatinine 0.93 (0.52-1.04) mg/dL Glucose 131 H (74-99) mg/dL Calcium 8.9 (8.4-10.2) mg/dL AST 24 (14-36) U/L ALT 10 (4-34) U/L Alkaline Phosphatase 63 (38-126) U/L Total Protein 6.0 L (6.3-8.2) g/dL Albumin 3.3 L (3.5-5.0) g/dL Calcium panel 07/16/23 Range/Units 15:33 Calcium 8.9 (8.4-10.2) mg/dL Albumin 3.3 L (3.5-5.0) g/dL Pituitary panel 07/16/23 Range/Units 15:33 Sodium 140 (137-145) mmol/L Potassium 4.2 (3.5-5.1) mmol/L Chloride 107 (98-107) mmol/L Carbon Dioxide 25 (22-30) mmol/L BUN 23 H (7-17) mg/dL Creatinine 0.93 (0.52-1.04) mg/dL Glucose 131 H (74-99) mg/dL Calcium 8.9 (8.4-10.2) mg/dL Adrenal panel 07/16/23 Range/Units 15:33 Sodium 140 (137-145) mmol/L Potassium 4.2 (3.5-5.1) mmol/L Chloride 107 (98-107) mmol/L Carbon Dioxide 25 (22-30) mmol/L BUN 23 H (7-17) mg/dL Creatinine 0.93 (0.52-1.04) mg/dL Glucose 131 H (74-99) mg/dL Calcium 8.9 (8.4-10.2) mg/dL Total Bilirubin 1.0 (0.2-1.3) mg/dL AST 24 (14-36) U/L ALT 10 (4-34) U/L Alkaline Phosphatase 63 (38-126) U/L Total Protein 6.0 L (6.3-8.2) g/dL Albumin 3.3 L (3.5-5.0) g/dL - Imaging Abdominal x-ray: report reviewed, image reviewed Assessment and Plan (1) Calculus of ureter Current Visit: Yes Status: Acute Code(s): N20.1 - CALCULUS OF URETER SNOMED Code(s): 40260892 (2) Hydronephrosis with renal and ureteral calculous obstruction Current Visit: Yes Status: Acute Code(s): N13.2 - HYDRONEPHROSIS WITH RENAL AND URETERAL CALCULOUS OBSTRUCTION SNOMED Code(s): 493808323 Plan: I had a lengthy discussion with the patient regarding her obstructing ureteral calculus. Urinalysis is suggestive of a possible UTI. In view of this, I have suggested she undergo left ureteral stent insertion to relieve obstruction and help to eradicate any infection, if present. She is receiving IV antibiotics, and a urine culture is pending. Risks associated with stent placement include anesthesia, ureteral injury, and inability to successfully place the stent. Ureteroscopy will be performed if required in order to place the stent. She will require a secondary procedure in 2-3 weeks consisting of cystoscopy, left ureteral stent removal, left ureteroscopy with laser lithotripsy and possible stone basketing. Time with Patient: Greater than 30
[2023-07-17] MEDS ORDERED: IV FLUID CONTINUATION 1,000 ML IV ONE (10:48)
[2023-07-17 11:12] LABS: Glucose,Whole Blood 107 mg/dL (70-110)
[2023-07-17] MEDS ORDERED: ONDANSETRON 4 MG/2 ML VIAL IVP ONE (11:43)
[2023-07-17] MEDS ORDERED: DEXAMETHASONE SOD PHOSPHATE 4 MG/ML 1 ML VIAL IVP ONE (11:44)
[2023-07-17] MEDS ORDERED: FAMOTIDINE 20 MG/2 ML VIAL IVP ONE (11:44)
[2023-07-17] MEDS ORDERED: LIDOCAINE 1% INJ 10MG/ML (20 ML MDV) ONE (11:52)
[2023-07-17] MEDS ORDERED: PROPOFOL 10 MG/ML 20 ML VIAL IV ONE (11:52)
[2023-07-17] MEDS ORDERED: SUCCINYLCHOLINE CHLORIDE 200 MG/10 ML VIAL IV ONE (11:52)
[2023-07-17] MEDS ORDERED: fentaNYL (PF) 50 MCG/ML 2 ML AMP ONE (11:52)
[2023-07-17] MEDS ORDERED: SODIUM CHLORIDE 0.9% 100 ML with ceFAZolin 1,000 MG IV ONE ×2 (12:07)
--- NOTE | 2023-07-17 12:34 | P.OP ---
Date of Procedure: 07/17/23 Preoperative Diagnosis: Left hydronephrosis secondary to left ureteral calculus Postoperative Diagnosis: Same Procedure(s) Performed: Cystoscopy, left ureteroscopy, left ureteral stent insertion Anesthesia: THAOA Surgeon: Titus Lozano Estimated Blood Loss (ml): 0 IV fluids (ml): 300 Pathology: none sent Condition: stable Disposition: PACU Indications for Procedure: The patient is a 77-year-old white female with a history of kidney stones, which have required endoscopic removal in the past. She experienced gross hematuria several days ago. She presented to the ER yesterday evening with acute onset of left flank pain radiating to the left groin. CT scan has shown evidence of moderate left hydronephrosis due to a 6 mm left distal ureteral calculus. She does not appear to have any renal calculi. Operative Findings: Obstructing left ureteral calculus. Description of Procedure: The patient was taken to the operating room and placed in the dorsolithotomy position, with legs supported in Saran stirrups. The external genitalia was prepped and draped sterilely. The 30 lens was used to introduce the 22-Barbadian Stortz cystoscopic sheath through the urethra and into the bladder under direct vision. The bladder was examined in its entirety. Both ureteral orifices were of normal anatomic location and configuration. No tumors or foreign bodies were seen. A 0.035 inch Glidewire was passed through the cystoscope. The left ureteral orifice was cannulated, and the Glidewire was slowly advanced until it met resistance approximately 2 cm cephalad to the ureteral orifice. Despite multiple attempts, it was not possible to pass the tip of the Glidewire beyond the obstructing calculus. Therefore, the cystoscope was removed and the [facility] semirigid ureteroscope was advanced into the bladder. The left ureteral orifice was cannulated, and the ureteroscope was advanced up to the calculus. The Glidewire was then passed through the ureteroscope and under vision passed beyond the calculus and up to the renal pelvis. the ureteroscope was removed, and the Glidewire was backloaded into the cystoscope, which was passed into the bladder. A 24 cm, 6-Barbadian double-J ureteral stent was placed over the wire. Proper stent positioning was verified fluoroscopically and endoscopically. The bladder was emptied and the cystoscope removed. The patient tolerated the procedure well was taken to the recovery room in stable condition.
[2023-07-17] MEDS ORDERED: hydrALAZINE HCL 20 MG/ML 1 ML VIAL IVP ONE (13:30)
[2023-07-17 14:16] LABS: Glucose,Whole Blood 139 mg/dL (70-110)
--- NOTE | 2023-07-17 14:33 | FL ---
EXAMINATION TYPE: FL guidance operating room Intraoperative/procedural fluoroscopic services were pro vided. Total fluoroscopy time is 10.3 seconds with a total of 2 submitted images to PACS. Please see the operative/procedural note for further details. DAP: 0.6524. Gycm2
[2023-07-17] MEDS: SODIUM CHLORIDE 0.9% 1,000 ML IV SCH ×2 (14:45→23:11)
[2023-07-17 17:12] LABS: Glucose,Whole Blood 146 mg/dL (70-110)
[2023-07-17] MEDS: HYDROmorphone 0.5 MG/0.5 ML SYRINGE IVP PRN (17:14)
--- NOTE | 2023-07-17 18:55 | P.HPIM ---
History of Present Illness H&P Date: 07/17/23 Chief Complaint: Abdominal pain/kidney stone 77-year-old female presenting via EMS with chief complaint of possible kidney stone. Patient has a history of kidney stones and triple bypass. Patient states the left sided flank pain started a couple of hours ago. She received zofran and 10 mg morphine by EMS with improvement of pain. Patient states the pain radiates from her left flank to her suprapubic region. Patient denies any dysuria or increasing frequency. She does report that she has been recently ill with viral illness. Patient denies any current nausea and rates her pain a 7 out of 10. She describes her pain as sharp and stabbing. Patient denies any chest pain, shortness of breath, constipation/diarrhea or peripheral edema. Blood work completed in ED reveals a WBC of 8.7, hemoglobin of 13.1 and platelet count of 166, sodium 140 4.2, BUN/creatinine of 23/0.93 and blood glucose of 131 CT abdomen and pelvis is significant for 6.2 mm stone in the distal left ureter with moderate left-sided hydronephrosis, perinephric and periureteral stranding. No bowel obstruction and severe atherosclerosis present UA is positive Review of Systems REVIEW OF SYSTEMS: CONSTITUTIONAL: No fever, no malaise, no fatigue. HEENT: No recent visual problems or hearing problems. Denied any sore throat. CARDIOVASCULAR: No chest pain, orthopnea, PND, no palpitations, no syncope. PULMONARY: No shortness of breath, no cough, no hemoptysis. GASTROINTESTINAL: No diarrhea, no nausea, no vomiting, no abdominal pain. NEUROLOGICAL: No headaches, no weakness, no numbness. HEMATOLOGICAL: Denies any bleeding or petechiae. GENITOURINARY: Denies any burning micturition, frequency, or urgency. MUSCULOSKELETAL/RHEUMATOLOGICAL: Denies any joint pain, swelling, or any muscle pain. ENDOCRINE: Denies any polyuria or polydipsia. The rest of the 14-point review of systems is negative. ROS unobtainable: due to mental status Past Medical History Past Medical History: Coronary Artery Disease (CAD), Chest Pain / Angina, Diabetes Mellitus, Hypertension, Osteoarthritis (OA) Additional Past Medical History / Comment(s): back pain History of Any Multi-Drug Resistant Organisms: None Reported Past Surgical History: Back Surgery, Coronary Bypass/CABG, Hysterectomy, Orthopedic Surgery, Tonsillectomy Additional Past Surgical History / Comment(s): STENT -PANCREAS, Anterior Cervical Fusion 08/29/20 Past Psychological History: No Psychological Hx Reported Smoking Status: Current every day smoker Past Alcohol Use History: None Reported Past Drug Use History: None Reported - Past Family History Mother Family Medical History: Myocardial Infarction ([place]) Medications and Allergies Home Medications Medication Instructions Recorded Confirmed Type Atorvastatin Calcium [Lipitor] 40 mg PO HS 12/25/17 07/16/23 History Albuterol Inhaler [Ventolin Hfa 1 - 2 puff INHALATION RT-Q6H PRN 07/16/23 07/16/23 History Inhaler] Budesonide/Formoterol Fumarate 2 puff INHALATION RT-BID 07/16/23 07/16/23 History [Symbicort 160-4.5 Mcg Inhaler] Calcitonin Nasal [Fortical 1 spray NASAL DAILY 07/16/23 07/16/23 History (Miacalcin)] Pioglitazone [Actos] 15 mg PO DAILY 07/16/23 07/16/23 History traZODone HCL [Desyrel] 25 mg PO HS 07/16/23 07/16/23 History PARoxetine [Paxil] 10 mg PO DAILY 07/17/23 07/17/23 History Allergies Allergy/AdvReac Type Severity Reaction Status Date / Time adhesive tape Allergy Rash/Hives Verified 07/17/23 10:55 Sulfa (Sulfonamide Allergy Unknown Verified 07/17/23 10:55 Antibiotics) Childhood Physical Exam Vitals: Vital Signs Temp Pulse Pulse Resp BP BP Pulse Ox 07/17/23 10:53 99.3 F 72 16 164/67 95 07/17/23 09:10 98.2 F 75 20 151/63 95 07/17/23 06:48 98.3 F 75 18 138/84 94 L 07/17/23 04:25 98.8 F 72 18 148/78 95 07/16/23 17:40 97.8 F 74 17 156/80 94 L 07/16/23 15:10 98.1 F 69 18 152/82 92 L Intake and Output 07/16/23 07/17/23 07/17/23 22:59 06:59 14:59 Intake Total 550 Output Total 0 Balance 550 Intake: IV 550 Output: Estimated Blood Loss 0 Other: Weight 53.07 kg General appearance: alert, in no apparent distress Respiratory exam: Present: normal lung sounds bilaterally. Absent: respiratory distress, wheezes, rales, rhonchi, stridor Cardiovascular Exam: Present: regular rate, normal rhythm, normal heart sounds. Absent: systolic murmur, diastolic murmur, rubs, gallop, clicks GI/Abdominal exam: Present: soft, tenderness (suprapubic LLQ/LUQ), normal bowel sounds Back exam: Present: normal inspection, CVA tenderness (L) Neurological exam: Present: alert, oriented X3, CN II-XII intact Psychiatric exam: Present: normal affect, normal mood Skin exam: Present: warm, dry, intact, normal color. Absent: rash Results CBC & Chem 7: 07/16/23 15:33 07/16/23 15:33 Labs: Abnormal Lab Results - Last 24 Hours (Table) 07/16/23 07/16/23 Range/Units 15:33 19:34 BUN 23 H (7-17) mg/dL Glucose 131 H (74-99) mg/dL Total Protein 6.0 L (6.3-8.2) g/dL Albumin 3.3 L (3.5-5.0) g/dL Urine Protein Trace H (Negative) Urine Blood Large H (Negative) Ur Leukocyte Esterase Large H (Negative) Urine RBC 109 H (0-5) /hpf Urine WBC 14 H (0-5) /hpf Urine Bacteria Occasional H (None) /hpf Hyaline Casts 12 H (0-2) /lpf Urine Mucus Rare H (None) /hpf Thrombosis Risk Factor Assmnt - Choose All That Apply Each Factor Represents 1 point: Minor surgery planned Each Risk Factor Represents 3 Points: Age 75 years or older Thrombosis Risk Factor Assessment Total Risk Factor Score: 4 Thrombosis Risk Factor Assessment Level: Moderate Risk Assessment and Plan Assessment: 1. Left distal ureter calculus with moderate left-sided hydronephrosis -- CT of the abdomen and pelvis reveals 6.2 mm stone in the distal left ureter with moderate left-sided hydronephrosis and perinephric and periureteral stranding -Patient has been placed on IV antibiotics; IV fluids and IV fluids; pain management -- Urology on board 2. Mild AK I; continue Ativan IV fluids in form of normal saline at a rate of 100 mL an hour; monitor strict NILAM's, daily weights, renal function and electrolytes -- Avoid nephrotoxins and hypotension 3. Diabetes mellitus type 2; patient takes Actos 15 mg daily; monitor Accu- Cheks every before meals and at bedtime with insulin sliding scale 4. Hyperlipidemia; Lipitor 80 mg by mouth daily at bedtime 5. COPD/asthma; continue with home inhaler therapy 6. Depression/insomnia; Paxil 10 mg daily; trazodone 25 mg daily at bedtime DVT prophylaxis; SCDs CODE STATUS; full code
[2023-07-17 20:05] LABS: Glucose,Whole Blood 173 mg/dL (70-110)
[2023-07-17] MEDS: SYMBICORT 160-4.5 MCG INHALER INHALATION SCH (20:45)
[2023-07-17] MEDS: PARoxetine 10 MG TAB PO SCH (20:50)
[2023-07-17] MEDS ORDERED: ATORVASTATIN 40 MG TAB PO SCH (21:00)
[2023-07-17] MEDS ORDERED: traZODone HCL 50 MG TAB PO SCH (21:00)
[2023-07-17] MEDS ORDERED: ACETAMINOPHEN TAB 325 MG TAB PO PRN (23:09)
[2023-07-18 06:19] LABS: Glucose,Whole Blood 105 mg/dL (70-110)
[2023-07-18 07:35] VITALS: BP 195/74; PULSE 84; RESP 17; TEMP 97.8
[2023-07-18] MEDS: PARoxetine 10 MG TAB PO SCH (08:12)
[2023-07-18 08:17] LABS: Basophils % (A) 0 %; Eosinophils % (A) 0 %; HCT 34.8 % (34.0-46.0); HGB 11.7 gm/dL (11.4-16.0); Lymphocytes # (A) 1.7 k/uL (1.0-4.8); Lymphocytes % (A) 23 %; MCH 33.3 pg (25.0-35.0); MCHC 33.6 g/dL (31.0-37.0); MCV 99.1 fL (80.0-100.0); Mean Platelet Volume 9.8; Monocytes # (A) 0.6 k/uL (0-1.0); Monocytes % (A) 8 %; Neutrophils # (A) 4.8 k/uL (1.3-7.7); Neutrophils % (A) 65 %; Platelet Count 122 k/uL (150-450); RBC 3.52 m/uL (3.80-5.40); RDW 13.5 % (11.5-15.5); WBC 7.4 k/uL (3.8-10.6)
[2023-07-18] MEDS: HYDROmorphone 0.5 MG/0.5 ML SYRINGE IVP PRN (08:20)
[2023-07-18 08:32] LABS: African American GFR (CKD) >90 (>60 ml/min/1.73 sqM); Anion Gap 6 mmol/L; Blood Urea Nitrogen 20 mg/dL (7-17); Calcium 8.8 mg/dL (8.4-10.2); Carbon Dioxide 24 mmol/L (22-30); Chloride 106 mmol/L (98-107); Glucose 91 mg/dL (74-99); Non-African American GFR(CKD) 86 (>60 ml/min/1.73 sqM); Potassium 3.8 mmol/L (3.5-5.1); Sodium 136 mmol/L (137-145)
[2023-07-18] MEDS: SYMBICORT 160-4.5 MCG INHALER INHALATION SCH (08:58)
[2023-07-18] MEDS ORDERED: PIOGLITAZONE 15 MG TAB PO SCH (09:00)
--- NOTE | 2023-07-18 11:20 | P.PN ---
Subjective Progress Note Date: 07/18/23 Principal diagnosis: Left ureteral calculus The patient underwent ureteroscopy with left ureteral stent insertion yesterday, thus relieving her ureteral obstruction. She is afebrile with stable vital signs. She reports a mild backache, as well as nausea without vomiting. Her ap petite is poor. Objective - Vital Signs Vital signs: Vital Signs Temp 97.8 F 07/18/23 07:00 Pulse 84 07/18/23 07:00 Resp 17 07/18/23 07:00 BP 195/74 07/18/23 07:00 Pulse Ox 96 07/18/23 07:00 FiO2 Intake & Output 07/17/23 07/18/23 07/18/23 18:59 06:59 18:59 Intake Total 900 Output Total 400 Balance 500 Weight 53.07 kg Intake: IV 800 Oral 100 Output: Urine 400 Estimated Blood Loss 0 Other: Voiding Method Toilet Toilet Toilet Diaper # Voids 1 1 - Constitutional General appearance: Present: average body habitus, no acute distress - Gastrointestinal Gastrointestinal Comment(s): Soft, non-tender, non-distended - Psychiatric Psychiatric: Present: A&O x's 3 - Labs CBC & Chem 7: 07/18/23 06:38 07/18/23 06:38 Labs: Abnormal Lab Results - Last 24 Hours (Table) 07/17/23 07/17/23 07/17/23 Range/Units 14:15 17:10 20:03 RBC (3.80-5.40) m/uL Plt Count (150-450) k/uL Sodium (137-145) mmol/L BUN (7-17) mg/dL POC Glucose (mg/dL) 139 H 146 H 173 H (70-110) mg/dL 07/18/23 07/18/23 Range/Units 06:38 06:38 RBC 3.52 L (3.80-5.40) m/uL Plt Count 122 L (150-450) k/uL Sodium 136 L (137-145) mmol/L BUN 20 H (7-17) mg/dL POC Glucose (mg/dL) (70-110) mg/dL Microbiology - Last 24 Hours (Table) 07/16/23 19:34 Urine Culture - Final Urine,Voided Assessment and Plan Assessment: Successful left ureteral stent placement has relieved ureteral obstruction. The urine culture is negative. (1) Calculus of ureter Current Visit: Yes Status: Acute Code(s): N20.1 - CALCULUS OF URETER SNOMED Code(s): 43016545 (2) Hydronephrosis with renal and ureteral calculous obstruction Current Visit: Yes Status: Acute Code(s): N13.2 - HYDRONEPHROSIS WITH RENAL AND URETERAL CALCULOUS OBSTRUCTION SNOMED Code(s): 899897984 Plan: The patient is urologically stable for discharge once she feels up to it. Arrangements will be made for her to undergo cystoscopy, left ureteral stent removal, left ureteroscopy with laser lithotripsy to remove her ureteral calculus in 2-3 weeks.
[2023-07-18 11:45] LABS: Glucose,Whole Blood 111 mg/dL (70-110)
--- NOTE | 2023-07-27 19:48 | P.DS ---
Providers Date of admission: 07/16/23 21:14 Expected date of discharge: 07/18/23 Attending physician: Tomer Voss MD Consults: 07/16/23 21:26 Consult Physician Urgent Consulting Provider: Titus Lozano Consult Reason/Comments: 6.2 mm distal left uretal stone Do you want consulting provider notified?: Yes Primary care physician: Kristian [facility] Course: 77-year-old female presenting via EMS with chief complaint of possible kidney stone. Patient has a history of kidney stones and triple bypass. Patient states the left sided flank pain started a couple of hours ago. She received zofran and 10 mg morphine by EMS with improvement of pain. Patient states the pain radiates from her left flank to her suprapubic region. Patient denies any dysuria or increasing frequency. She does report that she has been recently ill with viral illness. Patient denies any current nausea and rates her pain a 7 out of 10. She describes her pain as sharp and stabbing. Patient denies any chest pain, shortness of breath, constipation/diarrhea or peripheral edema. Blood work completed in ED reveals a WBC of 8.7, hemoglobin of 13.1 and platelet count of 166, sodium 140 4.2, BUN/creatinine of 23/0.93 and blood glucose of 131 CT abdomen and pelvis is significant for 6.2 mm stone in the distal left ureter with moderate left-sided hydronephrosis, perinephric and periureteral stranding. No bowel obstruction and severe atherosclerosis present UA is positive 1. Left distal ureter calculus with moderate left-sided hydronephrosis -- CT of the abdomen and pelvis reveals 6.2 mm stone in the distal left ureter with moderate left-sided hydronephrosis and perinephric and periureteral stranding -Patient has been placed on IV antibiotics; IV fluids and IV fluids; pain management -- Urology on board 2. Mild AK I; continue Ativan IV fluids in form of normal saline at a rate of 100 mL an hour; monitor strict NILAM's, daily weights, renal function and electrolytes -- Avoid nephrotoxins and hypotension 3. Diabetes mellitus type 2; patient takes Actos 15 mg daily; monitor Accu- Cheks every before meals and at bedtime with insulin sliding scale 4. Hyperlipidemia; Lipitor 80 mg by mouth daily at bedtime 5. COPD/asthma; continue with home inhaler therapy 6. Depression/insomnia; Paxil 10 mg daily; trazodone 25 mg daily at bedtime patient had stent placed successfully and dc'ed home in a stable condition Patient Condition at Discharge: Good Plan - Discharge Summary Discharge Rx Participant: No New Discharge Prescriptions: New Ondansetron [Zofran] 4 mg PO Q6HR PRN #10 tab PRN Reason: Nausea And Vomiting Continue Atorvastatin Calcium [Lipitor] 40 mg PO HS Pioglitazone [Actos] 15 mg PO QAM PARoxetine [Paxil] 10 mg PO QAM traZODone HCL [Desyrel] 25 mg PO HS Budesonide/Formoterol Fumarate [Symbicort 160-4.5 Mcg Inhaler] 2 puff INHALATION RT-BID Albuterol Inhaler [Ventolin Hfa Inhaler] 1 - 2 puff INHALATION RT-Q6H PRN PRN Reason: Shortness Of Breath No Action Cephalexin [Keflex] 500 mg PO TID Cephalexin [Keflex] 500 mg PO Q6HR #40 cap HYDROcodone/APAP 5-325MG [[place] 5-325] 1 tab PO Q6HR PRN 3 Days #12 tab PRN Reason: Pain Discharge Medication List Atorvastatin Calcium [Lipitor] 40 mg PO HS 12/25/17 [History] Albuterol Inhaler [Ventolin Hfa Inhaler] 1 - 2 puff INHALATION RT-Q6H PRN 07/16/23 [History] Budesonide/Formoterol Fumarate [Symbicort 160-4.5 Mcg Inhaler] 2 puff INHALATION RT-BID 07/16/23 [History] Pioglitazone [Actos] 15 mg PO QAM 07/16/23 [History] traZODone HCL [Desyrel] 25 mg PO HS 07/16/23 [History] PARoxetine [Paxil] 10 mg PO QAM 07/17/23 [History] Ondansetron [Zofran] 4 mg PO Q6HR PRN #10 tab 07/18/23 [Rx] Cephalexin [Keflex] 500 mg PO Q6HR #40 cap 07/24/23 [Rx] Cephalexin [Keflex] 500 mg PO TID 07/24/23 [History] HYDROcodone/APAP 5-325MG [[place] 5-325] 1 tab PO Q6HR PRN 3 Days #12 tab 07/24/23 [Rx] Follow up Appointment(s)/Referral(s): Titus Lozano MD [STAFF PHYSICIAN] - 1 Week (Follow-up, Stent removal, lithotripsy) Kristian Car [Primary Care Provider] - 1-2 days Patient Instructions/Handouts: Kidney Stones (DC), Urethral Stent Placement (DC) Activity/Diet/Wound Care/Special Instructions: Patient will be contacted by Dr. Lozano' office to schedule outpatient surgery. Reassure patient that she may experience hematuria as a result of her ureteral stent and that this is not a concern. Discharge Disposition: HOME SELF-CARE
== END 2023-07-18 13:00 | disposition home or self-care (01) ==
LOC: EC 15:04 → 6NMEDSUR 21:14
PROVIDERS: ADMIT Internal Medicine; ATTEND Internal Medicine
DX: N13.2 Hydronephrosis with renal and ureteral calculous obstruction (principal); I25.10 Atherosclerotic heart disease of native coronary artery without angina pectoris; E11.9 Type 2 diabetes mellitus without complications; I10 Essential (primary) hypertension; M19.90 Unspecified osteoarthritis, unspecified site; F17.200 Nicotine dependence, unspecified, uncomplicated; M54.9 Dorsalgia, unspecified; E78.5 Hyperlipidemia, unspecified; F32.A Depression, unspecified; G47.00 Insomnia, unspecified; J44.89 Other specified chronic obstructive pulmonary disease; Z79.899 Other long term (current) drug therapy; Z79.84 Long term (current) use of oral hypoglycemic drugs; Z79.51 Long term (current) use of inhaled steroids; Z88.2 Allergy status to sulfonamides; Z91.048 Other nonmedicinal substance allergy status; Z95.1 Presence of aortocoronary bypass graft; Z98.1 Arthrodesis status; Z82.49 Family history of ischemic heart disease and other diseases of the circulatory system
CPT/HCPCS: 52332; 96361; 96374; 96375; 99285; 36415; 80053; 80048; 83605; 85025; 85027; 81001; 87086; 74176; G0378 ×3; C2625; C1769; J0330; J0360; J1100; J2765; J2405 ×2; J0690; J2001; J0696 ×3; J3010; J3490; J2270; J1170 ×3; J2704

== ENCOUNTER 2023-07-24 17:22 | Emergency (ER) | payer MEDICARE, OTHER ==
[2023-07-24 17:50] VITALS: RESP 18
[2023-07-24] MEDS ORDERED: MORPHINE SULFATE 4 MG/ML SYRINGE IVP STA (17:58)
[2023-07-24] MEDS ORDERED: ONDANSETRON 4 MG/2 ML VIAL IVP STA (17:58)
--- NOTE | 2023-07-24 18:24 | ED ---
General Adult HPI - General Chief complaint: Urogenital Stated complaint: Kidney Pain Time Seen by Provider: 07/24/23 17:46 Source: patient, EMS, RN notes reviewed Mode of arrival: EMS Limitations: no limitations - History of Present Illness Initial comments: 77-year-old female presents to the emergency department for evaluation of left flank pain. Patient states that she had a stent placed about one week ago by Dr. Lozano. He states that she has been experiencing the pain but it is worse today. Patient admits to blood in her urine and urinary frequency since the procedure. She denies fever, chills. She does admit to nausea which she feels is related to the pain. - Related Data Home Medications Medication Instructions Recorded Confirmed Atorvastatin Calcium [Lipitor] 40 mg PO HS 12/25/17 07/24/23 Albuterol Inhaler [Ventolin Hfa 1 - 2 puff INHALATION RT-Q6H PRN 07/16/23 07/24/23 Inhaler] Budesonide/Formoterol Fumarate 2 puff INHALATION RT-BID 07/16/23 07/24/23 [Symbicort 160-4.5 Mcg Inhaler] Pioglitazone [Actos] 15 mg PO QAM 07/16/23 07/24/23 traZODone HCL [Desyrel] 25 mg PO HS 07/16/23 07/24/23 PARoxetine [Paxil] 10 mg PO QAM 07/17/23 07/24/23 Cephalexin [Keflex] 500 mg PO TID 07/24/23 07/24/23 Previous Rx's Medication Instructions Recorded Ondansetron [Zofran] 4 mg PO Q6HR PRN #10 tab 07/18/23 Cephalexin [Keflex] 500 mg PO Q6HR #40 cap 07/24/23 HYDROcodone/APAP 5-325MG [[place] 1 tab PO Q6HR PRN 3 Days #12 tab 07/24/23 5-325] Allergies Allergy/AdvReac Type Severity Reaction Status Date / Time adhesive tape Allergy Rash/Hives Verified 07/24/23 17:28 Sulfa (Sulfonamide Allergy Unknown Verified 07/24/23 17:28 Antibiotics) Childhood Review of Systems ROS Statement: Those systems with pertinent positive or pertinent negative responses have been documented in the HPI. ROS Other: All systems not noted in ROS Statement are negative. Past Medical History Past Medical History: Coronary Artery Disease (CAD), Chest Pain / Angina, Diabetes Mellitus, Hyperlipidemia, Hypertension, Osteoarthritis (OA), Pneumonia Additional Past Medical History / Comment(s): 07/16/23 IP FOR KIDNEY STONE. Back pain History of Any Multi-Drug Resistant Organisms: None Reported Past Surgical History: Back Surgery, Coronary Bypass/CABG, Hysterectomy, Orthopedic Surgery, Tonsillectomy Additional Past Surgical History / Comment(s): STENT -PANCREAS. Anterior Cervical Fusion 08/29/20. BILATERAL CATARACTS REMOVED Past Anesthesia/Blood Transfusion Reactions: No Reported Reaction Past Psychological History: Anxiety, Depression Smoking Status: Current every day smoker Past Alcohol Use History: None Reported Past Drug Use History: None Reported - Past Family History Mother Family Medical History: Myocardial Infarction ([place]) General Exam Limitations: no limitations General appearance: alert, in no apparent distress Head exam: Present: atraumatic, normocephalic, normal inspection Eye exam: Present: normal appearance, PERRL, EOMI. Absent: scleral icterus, conjunctival injection, periorbital swelling ENT exam: Present: normal exam, mucous membranes moist Neck exam: Present: normal inspection. Absent: tenderness, meningismus, lymphadenopathy Respiratory exam: Present: normal lung sounds bilaterally. Absent: respiratory distress, wheezes, rales, rhonchi, stridor Cardiovascular Exam: Present: regular rate, normal rhythm, normal heart sounds. Absent: systolic murmur, diastolic murmur, rubs, gallop, clicks GI/Abdominal exam: Present: soft, normal bowel sounds. Absent: distended, tenderness, guarding, rebound, rigid Extremities exam: Present: normal inspection, full ROM, normal capillary refill. Absent: tenderness, pedal edema, joint swelling, calf tenderness Back exam: Present: normal inspection. Absent: CVA tenderness (R), CVA tenderness (L) Neurological exam: Present: alert, oriented X3 Psychiatric exam: Present: normal affect, normal mood Skin exam: Present: warm, dry, intact, normal color. Absent: rash Course Vital Signs 07/24/23 07/24/23 07/24/23 17:29 21:22 22:40 Temperature 98.4 F Pulse Rate 71 72 72 Respiratory 18 18 Rate Blood Pressure 195/86 129/75 114/66 O2 Sat by Pulse 96 93 L 95 Oximetry Medical Decision Making - Medical Decision Making Was pt. sent in by a medical professional or institution (JACOB Neil, SECURITY TESTER, urgent care, hospital, or jail...) When possible be specific @ -No Did you speak to anyone other than the patient for history (EMS, parent, family, police, friend...)? What history was obtained from this source @ -No Did you review nursing and triage notes (agree or disagree)? Why? @ -I reviewed and agree with nursing and triage notes Were old charts reviewed (outside hosp., previous admission, EMS record, old EKG, old radiological studies, urgent care reports/EKG's, jail records)? Report findings @ -No old charts were reviewed Differential Diagnosis (chest pain, altered mental status, abdominal pain women, abdominal pain men, vaginal bleeding, weakness, fever, dyspnea, syncope, h eadache, dizziness, GI bleed, back pain, seizure, CVA, palpatations, mental health, musculoskeletal)? @ -UTI, pyelonephritis, kidney stone, this list is not all-inclusive EKG interpreted by me (3pts min.). @ -None X-rays interpreted by me (1pt min.). @ -KUB shows a ureteral stent in place CT interpreted by me (1pt min.). @ -None done U/S interpreted by me (1pt. min.). @ -None done What testing was considered but not performed or refused? (CT, X-rays, U/S, labs)? Why? @ -None What meds were considered but not given or refused? Why? @ -None Did you discuss the management of the patient with other professionals (professionals i.e. JACOB Neil, SECURITY TESTER, lab, RT, psych nurse, social science research assistant, software lead, teacher, personnel training officer, behavioral health case manager)? Give summary @ -No Was smoking cessation discussed for >3mins.? @ -No Was critical care preformed (if so, how long)? @ -No Were there social determinants of health that impacted care today? How? (Homelessness, low income, unemployed, alcoholism, drug addiction, transportation, low edu. Level, literacy, decrease access to med. care, intermediate, rehab)? @ -No Was there de-escalation of care discussed even if they declined (Discuss DNR or withdrawal of care, Hospice)? DNR status @ -No What co-morbidities impacted this encounter? (DM, HTN, Smoking, COPD, CAD, Cancer, CVA, ARF, Chemo, Hep., AIDS, mental health diagnosis, sleep apnea, morbid obesity)? @ -None Was patient admitted / discharged? Hospital course, mention meds given and route, prescriptions, significant lab abnormalities, going to OR and other pertinent info. @ -Discharged. 77 shows female presents to the emergency department for evaluation of left flank pain. Patient states that she had a ureteral stent placed last week and has had worsening pain today. Laboratory studies obtained. CBC shows WBC 7.5, hemoglobin 13.1; platelet patient studies within normal limits; CMP shows sodium 139, potassium 3.2, creatinine 0.64 which is stable for the patient, lactic 0.8; UA shows bloody urine, 80 wbc's. Patient will be started on antibiotics and given medication for pain control. Advised to follow-up with her urologist. Patient stable at time of discharge. Case discussed with Dr. Paris Undiagnosed new problem with uncertain prognosis? @ -No Drug Therapy requiring intensive monitoring for toxicity (Heparin, Nitro, Ins ulin, Cardizem)? @ -No Were any procedures done? @ -No Diagnosis/symptom? @ -Right flank pain Acute, or Chronic, or Acute on Chronic? @ -Acute Uncomplicated (without systemic symptoms) or Complicated (systemic symptoms)? @ -Uncomplicated Side effects of treatment? @ -No Exacerbation, Progression, or Severe Exacerbation? @ -No Poses a threat to life or bodily function? How? (Chest pain, [place], [place], pneumonia, PE, COPD, DKA, ARF, appy, cholecystitis, CVA, Diverticulitis, Homicidal, Suicidal, threat to staff... and all critical care pts) @ -No - Lab Data Result diagrams: 07/24/23 18:11 07/24/23 18:11 Lab Results 07/24/23 07/24/23 07/24/23 Range/Units 18:11 18:11 18:11 WBC 7.5 (3.8-10.6) k/uL RBC 3.95 (3.80-5.40) m/uL Hgb 13.1 (11.4-16.0) gm/dL Hct 38.3 (34.0-46.0) % MCV 96.9 (80.0-100.0) fL MCH 33.0 (25.0-35.0) pg MCHC 34.1 (31.0-37.0) g/dL RDW 13.9 (11.5-15.5) % Plt Count 172 (150-450) k/uL MPV 9.2 Neutrophils % 76 % Lymphocytes % 14 % Monocytes % 6 % Eosinophils % 1 % Basophils % 0 % Neutrophils # 5.8 (1.3-7.7) k/uL Lymphocytes # 1.1 (1.0-4.8) k/uL Monocytes # 0.5 (0-1.0) k/uL Eosinophils # 0.1 (0-0.7) k/uL Basophils # 0.0 (0-0.2) k/uL PT 10.5 (10.0-12.5) sec INR 0.9 (<1.2) APTT 23.7 (22.0-30.0) sec Sodium (137-145) mmol/L Potassium (3.5-5.1) mmol/L Chloride (98-107) mmol/L Carbon Dioxide (22-30) mmol/L Anion Gap mmol/L BUN (7-17) mg/dL Creatinine (0.52-1.04) mg/dL Est GFR (CKD-EPI)AfAm (>60 ml/min/1.73 sqM) Est GFR (CKD-EPI)NonAf (>60 ml/min/1.73 sqM) Glucose (74-99) mg/dL Plasma Lactic Acid Larry (0.7-2.0) mmol/L Calcium (8.4-10.2) mg/dL Total Bilirubin (0.2-1.3) mg/dL AST (14-36) U/L ALT (4-34) U/L Alkaline Phosphatase (38-126) U/L Total Protein (6.3-8.2) g/dL Albumin (3.5-5.0) g/dL Lipase (23-300) U/L Urine Color Red Urine Appearance Bloody H (Clear) Urine RBC >182 H (0-5) /hpf Urine WBC 80 H (0-5) /hpf Urine Bacteria Few H (None) /hpf Urine Mucus Moderate H (None) /hpf 07/24/23 07/24/23 Range/Units 18:11 18:11 WBC (3.8-10.6) k/uL RBC (3.80-5.40) m/uL Hgb (11.4-16.0) gm/dL Hct (34.0-46.0) % MCV (80.0-100.0) fL MCH (25.0-35.0) pg MCHC (31.0-37.0) g/dL RDW (11.5-15.5) % Plt Count (150-450) k/uL MPV Neutrophils % % Lymphocytes % % Monocytes % % Eosinophils % % Basophils % % Neutrophils # (1.3-7.7) k/uL Lymphocytes # (1.0-4.8) k/uL Monocytes # (0-1.0) k/uL Eosinophils # (0-0.7) k/uL Basophils # (0-0.2) k/uL PT (10.0-12.5) sec INR (<1.2) APTT (22.0-30.0) sec Sodium 139 (137-145) mmol/L Potassium 3.2 L (3.5-5.1) mmol/L Chloride 103 (98-107) mmol/L Carbon Dioxide 27 (22-30) mmol/L Anion Gap 9 mmol/L BUN 18 H (7-17) mg/dL Creatinine 0.64 (0.52-1.04) mg/dL Est GFR (CKD-EPI)AfAm >90 (>60 ml/min/1.73 sqM) Est GFR (CKD-EPI)NonAf 87 (>60 ml/min/1.73 sqM) Glucose 154 H (74-99) mg/dL Plasma Lactic Acid Larry 0.8 (0.7-2.0) mmol/L Calcium 8.9 (8.4-10.2) mg/dL Total Bilirubin 0.7 (0.2-1.3) mg/dL AST 19 (14-36) U/L ALT 10 (4-34) U/L Alkaline Phosphatase 77 (38-126) U/L Total Protein 6.1 L (6.3-8.2) g/dL Albumin 3.4 L (3.5-5.0) g/dL Lipase 48 (23-300) U/L Urine Color Urine Appearance (Clear) Urine RBC (0-5) /hpf Urine WBC (0-5) /hpf Urine Bacteria (None) /hpf Urine Mucus (None) /hpf Disposition Clinical Impression: Flank pain Disposition: HOME SELF-CARE Condition: Stable Instructions (If sedation given, give patient instructions): Urethral Stent Placement (DC) Additional Instructions: Please follow up with Dr. Lozano. Return to the emergency department for new or worsening symptoms. Prescriptions: Cephalexin [Keflex] 500 mg PO Q6HR #40 cap HYDROcodone/APAP 5-325MG [[place] 5-325] 1 tab PO Q6HR PRN 3 Days #12 tab PRN Reason: Pain Is patient prescribed a controlled substance at d/c from ED?: Yes When asked, does pt state using other controlled substances?: No If prescribed controlled substance>3 days was MAPS reviewed?: Prescribed <3 Days Referrals: Kristian Car [Primary Care Provider] - 1-2 days
[2023-07-24 18:48] LABS: Basophils % (A) 0 %; Eosinophils # (A) 0.1 k/uL (0-0.7); Eosinophils % (A) 1 %; HCT 38.3 % (34.0-46.0); HGB 13.1 gm/dL (11.4-16.0); Lymphocytes # (A) 1.1 k/uL (1.0-4.8); Lymphocytes % (A) 14 %; MCHC 34.1 g/dL (31.0-37.0); MCV 96.9 fL (80.0-100.0); Mean Platelet Volume 9.2; Monocytes # (A) 0.5 k/uL (0-1.0); Monocytes % (A) 6 %; Neutrophils # (A) 5.8 k/uL (1.3-7.7); Neutrophils % (A) 76 %; Platelet Count 172 k/uL (150-450); RBC 3.95 m/uL (3.80-5.40); RDW 13.9 % (11.5-15.5); WBC 7.5 k/uL (3.8-10.6)
[2023-07-24 18:54] LABS: ALT 10 U/L (4-34); AST 19 U/L (14-36); African American GFR (CKD) >90 (>60 ml/min/1.73 sqM); Albumin 3.4 g/dL (3.5-5.0); Alkaline Phosphatase 77 U/L (38-126); Anion Gap 9 mmol/L; Blood Urea Nitrogen 18 mg/dL (7-17); Calcium 8.9 mg/dL (8.4-10.2); Carbon Dioxide 27 mmol/L (22-30); Chloride 103 mmol/L (98-107); Glucose 154 mg/dL (74-99); Lipase 48 U/L (23-300); Non-African American GFR(CKD) 87 (>60 ml/min/1.73 sqM); Potassium 3.2 mmol/L (3.5-5.1); Sodium 139 mmol/L (137-145); Total Bilirubin 0.7 mg/dL (0.2-1.3); Total Protein 6.1 g/dL (6.3-8.2)
[2023-07-24 18:57] LABS: INR 0.9 (<1.2); Partial Thromboplastin Time 23.7 sec (22.0-30.0); Prothrombin Time 10.5 sec (10.0-12.5)
--- NOTE | 2023-07-24 19:03 | XR ---
EXAMINATION TYPE: XR KUB DATE OF EXAM: 07/24/2023 6:39 PM CLINICAL INDICATION:Female, 77 years old with history of flank pain, stone w stent; [facility] COMPARISON: CT 07/16/2023. TECHNIQUE: One radiographic view of the abdomen was obtained. FINDINGS: The bowel gas pattern is nonspecific without dilated loops of small or large bowel. There i s no evidence for organomegaly or pneumoperitoneum. The osseous structures are intact. No abnormal calcifications are present. Fecal material and gas are demonstrated throughout the colon and rectum. Left ureteral stent with proximal and distal portions in appropriate position. No calculus visualize d along the neural stent. Renal calculi seen on CT are less well appreciated. Distal left ureteral ca lculus which was obstructing is not well appreciated.. Multilevel degeneration changes throughout the spine. IMPRESSION: 1. Left ureteral stent with proximal and distal portions in appropriate position. 2. Nonspecific bowel gas pattern without radiographic evidence for acute process.
[2023-07-24] MEDS ORDERED: MORPHINE SULFATE 2 MG/ML SYRINGE IVP ONE (21:09)
[2023-07-24 21:18] LABS: Bacteria,Urine Few /hpf; Mucus,Urine Moderate /hpf; RBC,Urine >182 /hpf (0-5); WBC,Urine 80 /hpf (0-5)
[2023-07-24 21:22] LABS: Appearance,Urine Bloody (Clear)
[2023-07-24 21:23] LABS: Color,Urine Red
[2023-07-24 21:32] VITALS: PULSE 72
[2023-07-24] MEDS ORDERED: CEPHALEXIN 500MG STARTER PACK 4 CAP BTL PO STA (22:22)
[2023-07-24] MEDS ORDERED: ACET/COD 300 MG/30 MG STARTER PACK 6 TAB BTL PO STA (22:22)
[2023-07-24 22:46] VITALS: BP 114/66; TEMP 98.4
== END 2023-07-24 22:41 | disposition home or self-care (01) ==
LOC: EC 17:22
DX: R10.9 Unspecified abdominal pain (principal); E78.5 Hyperlipidemia, unspecified; I10 Essential (primary) hypertension; E11.9 Type 2 diabetes mellitus without complications; I25.10 Atherosclerotic heart disease of native coronary artery without angina pectoris; F41.9 Anxiety disorder, unspecified; F32.A Depression, unspecified; F17.200 Nicotine dependence, unspecified, uncomplicated; Z79.899 Other long term (current) drug therapy; Z79.84 Long term (current) use of oral hypoglycemic drugs; Z88.2 Allergy status to sulfonamides; Z91.09 Other allergy status, other than to drugs and biological substances
CPT/HCPCS: 36415; 80053; 83605; 83690; 85025; 85610; 85730; 81001; 87086; 74018; 99284; 96374; 96375; 96376; J2270 ×2; J2405

== ENCOUNTER 2023-07-30 05:36 | Day surgery (SDC) | payer MEDICARE, OTHER ==
--- NOTE | 2023-07-25 07:40 | P.GSHP ---
History of Present Illness H&P Date: 07/24/23 Chief Complaint: Left renal colic The patient is a 77-year-old white female with a history of kidney stones, which have required endoscopic removal in the past. She experienced gross hematuria several days ago. She presented to the ER yesterday evening with acute onset of left flank pain radiating to the left groin. CT scan has shown evidence of moderate left hydronephrosis due to a 6 mm left distal ureteral calculus. She does not appear to have any renal calculi. UA suggested a UTI, so she underwent left ureteral stent insertion. However, the urine culture was negative. - Constitutional Constitutional: Denies chills, Denies fever - Gastrointestinal Gastrointestinal: Denies nausea, Denies vomiting - Genitourinary (Female) Genitourinary: Reports flank pain, Reports hematuria, Reports kidney stones, Denies dysuria Past Medical History Past Medical History: Coronary Artery Disease (CAD), Chest Pain / Angina, Diabetes Mellitus, Hypertension, Osteoarthritis (OA) Additional Past Medical History / Comment(s): back pain History of Any Multi-Drug Resistant Organisms: None Reported Past Surgical History: Back Surgery, Coronary Bypass/CABG, Hysterectomy, Orthopedic Surgery, Tonsillectomy Additional Past Surgical History / Comment(s): STENT -PANCREAS, Anterior Cervical Fusion 08/29/20 Past Anesthesia/Blood Transfusion Reactions: No Reported Reaction Past Psychological History: No Psychological Hx Reported Smoking Status: Current every day smoker Past Alcohol Use History: None Reported Past Drug Use History: None Reported - Past Family History Mother Family Medical History: Myocardial Infarction ([place]) Medications and Allergies Home Medications Medication Instructions Recorded Confirmed Type Atorvastatin Calcium [Lipitor] 40 mg PO HS 12/25/17 07/24/23 History Albuterol Inhaler [Ventolin Hfa 1 - 2 puff INHALATION RT-Q6H PRN 07/16/23 07/24/23 History Inhaler] Budesonide/Formoterol Fumarate 2 puff INHALATION RT-BID 07/16/23 07/24/23 History [Symbicort 160-4.5 Mcg Inhaler] Pioglitazone [Actos] 15 mg PO QAM 07/16/23 07/24/23 History traZODone HCL [Desyrel] 25 mg PO HS 07/16/23 07/24/23 History PARoxetine [Paxil] 10 mg PO QAM 07/17/23 07/24/23 History Ondansetron [Zofran] 4 mg PO Q6HR PRN #10 tab 07/18/23 07/24/23 Rx Cephalexin [Keflex] 500 mg PO Q6HR #40 cap 07/24/23 Rx Cephalexin [Keflex] 500 mg PO TID 07/24/23 07/24/23 History HYDROcodone/APAP 5-325MG [[place] 1 tab PO Q6HR PRN 3 Days #12 tab 07/24/23 Rx 5-325] Allergies Allergy/AdvReac Type Severity Reaction Status Date / Time adhesive tape Allergy Rash/Hives Verified 07/24/23 17:28 Sulfa (Sulfonamide Allergy Unknown Verified 07/24/23 17:28 Antibiotics) Childhood Surgical - Exam - General well developed, well nourished, no distress - Respiratory normal respiratory effort - Abdomen Abdomen: soft, tender (mild LLQ tenderness), no guarding, no rigid, no rebound - Genitourinary normal external genitalia - Psychiatric oriented to time, oriented to person, oriented to place, speech is normal, memory intact Assessment and Plan (1) Calculus of ureter Status: Acute Code(s): N20.1 - CALCULUS OF URETER SNOMED Code(s): 54734011 Plan: Cystoscopy, left ureteral stent removal, left ureteroscopy with laser lithotripsy and possible stone basketing. Risks include anesthesia, infection, inability to remove the calculus, and ureteral injury.
[2023-07-30] MEDS ORDERED: DEXAMETHASONE SOD PHOSPHATE 4 MG/ML 1 ML VIAL IV ONE (06:39)
[2023-07-30] MEDS ORDERED: ONDANSETRON 4 MG/2 ML VIAL IVP ONE ×2 (06:39→07:22)
[2023-07-30] MEDS ORDERED: LACTATED RINGERS 1,000 ML IV SCH (06:39)
[2023-07-30] MEDS ORDERED: HYDROmorphone 0.5 MG/0.5 ML SYRINGE IVP PRN (07:00)
[2023-07-30] MEDS ORDERED: MIDAZOLAM 2 MG/2 ML VIAL IV PRN (07:00)
[2023-07-30 07:20] LABS: Glucose,Whole Blood 134 mg/dL (70-110)
[2023-07-30] MEDS ORDERED: DEXAMETHASONE SOD PHOSPHATE 4 MG/ML 1 ML VIAL IVP ONE (07:22)
[2023-07-30] MEDS ORDERED: MIDAZOLAM 2 MG/2 ML VIAL IVP ONE (07:30)
[2023-07-30] MEDS ORDERED: LIDOCAINE 1% INJ 10MG/ML (20 ML MDV) ONE (07:36)
[2023-07-30] MEDS ORDERED: PROPOFOL 10 MG/ML 20 ML VIAL IV ONE (07:36)
[2023-07-30] MEDS ORDERED: fentaNYL (PF) 50 MCG/ML 2 ML AMP ONE (07:36)
--- NOTE | 2023-07-30 08:21 | XR ---
EXAMINATION TYPE: XR KUB DATE OF EXAM: 07/30/2023 6:56 AM CLINICAL INDICATION:Female, 77 years old with history of N20.0; [facility] COMPARISON: None. TECHNIQUE: One radiographic view of the abdomen was obtained. FINDINGS: The bowel gas pattern is nonspecific without dilated loops of small or large bowel. There i s no evidence for organomegaly or pneumoperitoneum. The osseous structures are intact. Multilevel se adela degeneration changes throughout the spine with osteophyte formation and disc space narrowing.. No abnormal calcifications are present. Fecal material and gas are demonstrated throughout the colon and rectum. The left ureteral stent proximal and distal portions appear in appropriate position. Cur vilinear calcifications project over the kidneys bilaterally that represent vascular calcifications s een on prior CT.. IMPRESSION: Left ureteral stent with tips in appropriate position.
--- NOTE | 2023-07-30 08:34 | P.OP ---
Date of Procedure: 07/30/23 Preoperative Diagnosis: Left ureteral calculus Postoperative Diagnosis: Same Procedure(s) Performed: Cystoscopy, left ureteral stent removal, left ureteroscopy with Holmium laser lithotripsy and stone basketing Anesthesia: JATIN Surgeon: Titus Lozano Estimated Blood Loss (ml): 0 IV fluids (ml): 400 Pathology: other (Left ureteral calculus fragments, sent for chemical analysis) Condition: stable Disposition: PACU Indications for Procedure: The patient is a 77-year-old white female with a history of kidney stones, which have required endoscopic removal in the past. She experienced gross hematuria several days ago. She presented to the ER yesterday evening with acute onset of left flank pain radiating to the left groin. CT scan has shown evidence of moderate left hydronephrosis due to a 6 mm left distal ureteral calculus. She does not appear to have any renal calculi. UA suggested a UTI, so she underwent left ureteral stent insertion. However, the urine culture was negative. She now comes for ureteroscopic removal of the calculus. Operative Findings: Left distal ureteral calculus, fragmented and removed completely. Description of Procedure: The patient was taken to the operating room and placed in the dorsolithotomy position, with legs supported in Saran stirrups. The external genitalia was prepped and draped sterilely. The 30 lens was used to introduce the 21-[place] Estrada cystoscopic sheath through the urethra and into the bladder under direct vision. The bladder was examined in its entirety. No abnormalities were seen. Grasping forceps were used to grasp the distal end of the left ureteral stent, which was removed along with the cystoscope. The Estrada semirigid ureteroscope was advanced into the bladder, and the left ureteral orifice was cannulated. The ureteroscope was slowly advanced under direct vision, up to the calculus. The 365 micron Holmium laser probe was passed through the ureteroscope, and lithotripsy was performed. The majority of the calculus fragments passed distally into the bladder. The remaining fragments were removed using a 1.9-[place] 0 tip nitinol basket. Once this was completed, the ureter was inspected. There were no residual calculus fragments, and no evidence of ureteral trauma. Calculus fragments were removed from the bladder using the cystoscope, and sent for chemical analysis. The bladder was emptied and the cystoscope removed. The patient tolerated the procedure well and was taken to the recovery room in stable condition. HUANG LAU Report: Procedure Acuity: Elective Stone Size and Location: 6 mm, left distal ureter Ureteral Dilation: No Ureteral Access Sheath Used: No Stone Sent for Analysis: Yes All Stones/Fragments Were Removed with a Basket: Yes Complications: No Preoperative Antibiotics Given: Yes Stent Placed: No Discharge Medications: None
[2023-07-30] MEDS ORDERED: hydrALAZINE HCL 20 MG/ML 1 ML VIAL IVP ONE (08:55)
[2023-07-30 09:04] VITALS: TEMP 97.6
[2023-07-30 10:15] VITALS: RESP 20
[2023-07-30 10:39] VITALS: BP 143/78; PULSE 93
== END 2023-07-30 10:35 | disposition home or self-care (01) ==
LOC: OR 05:36
PROVIDERS: ATTEND Urology
DX: N20.1 Calculus of ureter (principal); E11.9 Type 2 diabetes mellitus without complications; I10 Essential (primary) hypertension; I25.10 Atherosclerotic heart disease of native coronary artery without angina pectoris; M19.90 Unspecified osteoarthritis, unspecified site; F17.200 Nicotine dependence, unspecified, uncomplicated; Z79.51 Long term (current) use of inhaled steroids; Z88.1 Allergy status to other antibiotic agents; Z87.442 Personal history of urinary calculi; Z88.2 Allergy status to sulfonamides; Z95.1 Presence of aortocoronary bypass graft; Z79.84 Long term (current) use of oral hypoglycemic drugs
CPT/HCPCS: 52353; 84132; 82365; 74018; C1769; C1894; J2250; J0360; J1100; J0690; J2405; J2001; J3010; J2704

== ENCOUNTER 2023-09-08 10:53 | Emergency (ER) | payer MEDICARE, OTHER ==
[2023-09-08] MEDS: ONDANSETRON 4 MG/2 ML VIAL IVP STA ×2 (11:16→18:15)
[2023-09-08] MEDS: KETOROLAC 15 MG/ML 1 ML VIAL IVP STA (11:17)
[2023-09-08] MEDS: SODIUM CHLORIDE 0.9% 1,000 ML IV STA ×2 (11:17→16:44)
[2023-09-08] MEDS: MORPHINE SULFATE 4 MG/ML SYRINGE IVP STA (11:18)
[2023-09-08 11:23] LABS: Basophils % (A) 0 %; Eosinophils % (A) 1 %; HCT 41.5 % (34.0-46.0); HGB 13.3 gm/dL (11.4-16.0); Lymphocytes # (A) 1.3 k/uL (1.0-4.8); Lymphocytes % (A) 18 %; MCH 31.3 pg (25.0-35.0); MCV 97.8 fL (80.0-100.0); Mean Platelet Volume 9.9; Monocytes # (A) 0.4 k/uL (0-1.0); Monocytes % (A) 6 %; Neutrophils # (A) 5.4 k/uL (1.3-7.7); Neutrophils % (A) 75 %; Platelet Count 151 k/uL (150-450); RBC 4.25 m/uL (3.80-5.40); RDW 14.2 % (11.5-15.5); WBC 7.2 k/uL (3.8-10.6)
--- NOTE | 2023-09-08 11:30 | ED ---
Back Pain HPI - General Chief Complaint: Back Pain/Injury Stated Complaint: Poss Kidney Stones Time Seen by Provider: 09/08/23 10:57 Source: patient, EMS, RN notes reviewed Mode of arrival: EMS Limitations: no limitations - History of Present Illness Initial Comments: This is a 77-year-old female who presents to the emergency department for left flank pain. States that this started last night around midnight. This radiates around into the left groin. She has associated nausea and vomiting. She has a history of kidney stones and states that this feels the same. Denies any urinary symptoms. Also denies any fevers/chills, chest pain, or shortness of breath. - Related Data Home Medications Medication Instructions Recorded Confirmed Atorvastatin Calcium [Lipitor] 40 mg PO HS 12/25/17 09/08/23 Albuterol Inhaler [Ventolin Hfa 1 - 2 puff INHALATION RT-Q6H PRN 07/16/23 09/08/23 Inhaler] Budesonide/Formoterol Fumarate 2 puff INHALATION RT-BID 07/16/23 09/08/23 [Symbicort 160-4.5 Mcg Inhaler] Pioglitazone [Actos] 15 mg PO DAILY 07/16/23 09/08/23 traZODone HCL [Desyrel] 25 mg PO HS 07/16/23 09/08/23 PARoxetine [Paxil] 10 mg PO DAILY 07/17/23 09/08/23 Gabapentin [Neurontin] 300 mg PO BID 09/08/23 09/08/23 Previous Rx's Medication Instructions Recorded Lidocaine 5% Patch [Lidoderm 5% 1 patch TOPICAL DAILY PRN #30 patch 09/08/23 Patch] Meloxicam [Mobic] 15 mg PO DAILY #15 tab 09/08/23 Ondansetron Odt [Zofran Odt] 4 mg PO Q8HR PRN #15 tab 09/08/23 methocarbamoL [Robaxin-750] 1,500 mg PO TID PRN #30 tab 09/08/23 Allergies Allergy/AdvReac Type Severity Reaction Status Date / Time adhesive tape Allergy Rash/Hives Verified 09/08/23 15:00 Sulfa (Sulfonamide Allergy Unknown Verified 09/08/23 15:00 Antibiotics) Childhood Review of Systems ROS Statement: Those systems with pertinent positive or pertinent negative responses have been documented in the HPI. ROS Other: All systems not noted in ROS Statement are negative. Past Medical History Past Medical History: Coronary Artery Disease (CAD), Chest Pain / Angina, Diabetes Mellitus, Hypertension, Osteoarthritis (OA) Additional Past Medical History / Comment(s): back pain, kidney stones History of Any Multi-Drug Resistant Organisms: None Reported Past Surgical History: Back Surgery, Coronary Bypass/CABG, Hysterectomy, Orthopedic Surgery, Tonsillectomy Additional Past Surgical History / Comment(s): STENT -PANCREAS, Anterior Cervical Fusion 08/29/20, Past Anesthesia/Blood Transfusion Reactions: No Reported Reaction Past Psychological History: No Psychological Hx Reported Smoking Status: Current every day smoker Past Alcohol Use History: None Reported Past Drug Use History: None Reported - Past Family History Mother Family Medical History: Myocardial Infarction (SD) General Exam Limitations: no limitations General appearance: alert, in distress Head exam: Present: atraumatic, normocephalic, normal inspection Respiratory exam: Present: normal lung sounds bilaterally. Absent: respiratory distress, wheezes, rales, rhonchi, stridor Cardiovascular Exam: Present: regular rate, normal rhythm, normal heart sounds. Absent: systolic murmur, diastolic murmur, rubs, gallop, clicks GI/Abdominal exam: Present: soft, normal bowel sounds. Absent: distended, tenderness, guarding, rebound, rigid Back exam: Present: CVA tenderness (L) Neurological exam: Present: alert, oriented X3, CN II-XII intact Psychiatric exam: Present: normal affect, normal mood Skin exam: Present: warm, dry, intact, normal color. Absent: rash Course Vital Signs 09/08/23 09/08/23 09/08/23 10:57 12:00 13:00 Temperature 97.4 F L Pulse Rate 80 74 69 Respiratory 18 18 18 Rate Blood Pressure 204/107 204/107 174/78 O2 Sat by Pulse 97 98 97 Oximetry 09/08/23 09/08/23 09/08/23 13:05 14:00 15:00 Temperature 98 F Pulse Rate 80 87 95 Respiratory 18 16 16 Rate Blood Pressure 184/76 184/76 192/106 O2 Sat by Pulse 99 98 96 Oximetry 09/08/23 09/08/23 09/08/23 15:19 16:47 16:53 Temperature Pulse Rate 96 80 78 Respiratory 18 18 18 Rate Blood Pressure 190/76 78/45 106/56 O2 Sat by Pulse 98 98 95 Oximetry 09/08/23 18:25 Temperature Pulse Rate 88 Respiratory 18 Rate Blood Pressure 112/57 O2 Sat by Pulse 98 Oximetry Medical Decision Making - Medical Decision Making This is a 77 year old female who presents to the emergency department for left flank pain. Was pt. sent in by a medical professional or institution? @ -No Did you speak to anyone other than the patient for history? @ -No Did you review nursing and triage notes? @ -Yes, and I agree, it is accurate with regards to the patient's symptoms. Were old charts reviewed? @ -No Differential Diagnosis? @ -Differential Flank Pain: UTI, pyelonephritis, kidney stone, musculoskeletal, pancreatitis, cholecystitis, this is not meant to be an all-inclusive list. EKG interpreted by me (3pts min.)? @ -Not obtained X-rays interpreted by me (1pt min.)? @ -Not obtained CT interpreted by me (1pt min.)? @ -CT scan of the abdomen and pelvis obtained. My interpretation identifies no evidence of a ureteral calculus. U/S interpreted by me (1pt. min.)? @ -Not obtained What testing was considered but not performed? (CT, X-rays, U/S, labs)? Why? @ -None What meds were considered but not given? Why? @ -None Did you discuss the management of the patient with other professionals? @ -No Did you reconcile home meds? @ -No Was smoking cessation discussed for >3mins.? @ -No Was critical care preformed (if so, how long)? @ -No Were there social determinants of health that impacted care today? How? (Homelessness, low income, unemployed, alcoholism, drug addiction, tr ansportation, low edu. Level, literacy, decrease access to med. care, [facility], rehab)? @ -No Was there de-escalation of care discussed even if they declined? (Discuss DNR or withdrawal of care, Hospice)? @ -No What co-morbidities impacted this encounter? (DM, HTN, Smoking, COPD, CAD, Cancer, CVA, Hep., AIDS, mental health diagnosis, sleep apnea, morbid obesity)? @ -CAD, HTN, DM Was patient admitted / discharged? @ -Discharged. Lab work obtained and found to be unremarkable. Computed tomography scan of the abdomen and pelvis reveals no evidence of a ureteral calc ulus or other acute process. She does have cholelithiasis and a lung nodule that will need follow-up, however there was not anything present to explain the patient's current symptoms. This may be musculoskeletal in nature. She was fairly hypertensive on arrival with a BP of 204/107, likely related to the patient missing her BP meds this morning. She was given 10mg of Hydralazine with no improvement in BP. She was then given 20mg of Labetalol, which she seemed to be sensitive to. She started to become hypotensive afterwards, however this was quickly corrected with IV fluids. Her symptoms were overall well controlled in the emergency department and she felt stable for discharge home. Rx for Mobic, Robaxin, Zofran, and Lidocaine patches provided with dosing instructions reviewed. Otherwise advised follow up with her PCP. Patient discharged home in stable condition. Undiagnosed new problem with uncertain prognosis? @ -None Drug Therapy requiring intensive monitoring for toxicity (Heparin, Nitro, Insulin, Cardizem)? @ -None Were any procedures done? @ -None Diagnosis/symptom? @ -Mechanical back pain, nausea Acute, or Chronic, or Acute on Chronic? @ -Acute Uncomplicated (without systemic symptoms) or Complicated (systemic symptoms)? @ -Uncomplicated Side effects of treatment? @ -None Exacerbation, Progression, or Severe Exacerbation] @ -Not applicable Poses a threat to life or bodily function? @ -No Return precautions reviewed in depth, the patient is instructed to return to the emergency department with any new, worsening, or concerning symptoms. Patient verbalized understanding. This case was discussed in detail with the attending ED physician, Dr. Olsen. Presentation, findings, and treatment plan discussed in detail as well. - Lab Data Result diagrams: 09/08/23 11:12 09/08/23 11:12 Lab Results 09/08/23 09/08/23 09/08/23 Range/Units 11:12 11:12 11:12 WBC 7.2 (3.8-10.6) k/uL RBC 4.25 (3.80-5.40) m/uL Hgb 13.3 (11.4-16.0) gm/dL Hct 41.5 (34.0-46.0) % MCV 97.8 (80.0-100.0) fL MCH 31.3 (25.0-35.0) pg MCHC 32.0 (31.0-37.0) g/dL RDW 14.2 (11.5-15.5) % Plt Count 151 (150-450) k/uL MPV 9.9 Neutrophils % 75 % Lymphocytes % 18 % Monocytes % 6 % Eosinophils % 1 % Basophils % 0 % Neutrophils # 5.4 (1.3-7.7) k/uL Lymphocytes # 1.3 (1.0-4.8) k/uL Monocytes # 0.4 (0-1.0) k/uL Eosinophils # 0.0 (0-0.7) k/uL Basophils # 0.0 (0-0.2) k/uL Sodium 139 (137-145) mmol/L Potassium 3.7 (3.5-5.1) mmol/L Chloride 107 (98-107) mmol/L Carbon Dioxide 27 (22-30) mmol/L Anion Gap 5 mmol/L BUN 21 H (7-17) mg/dL Creatinine 0.67 (0.52-1.04) mg/dL Est GFR (CKD-EPI)AfAm >90 (>60 ml/min/1.73 sqM) Est GFR (CKD-EPI)NonAf 86 (>60 ml/min/1.73 sqM) Glucose 163 H (74-99) mg/dL Plasma Lactic Acid Larry (0.7-2.0) mmol/L Calcium 8.9 (8.4-10.2) mg/dL Total Bilirubin 0.7 (0.2-1.3) mg/dL AST 22 (14-36) U/L ALT 12 (4-34) U/L Alkaline Phosphatase 103 (38-126) U/L Troponin I (0.000-0.034) ng/mL Total Protein 6.4 (6.3-8.2) g/dL Albumin 3.6 (3.5-5.0) g/dL Amylase 60 (30-110) U/L Lipase 87 (23-300) U/L Urine Color Colorless Urine Appearance Clear (Clear) Urine pH 7.0 (5.0-8.0) Ur Specific [place] 1.015 (1.001-1.035) Urine Protein Trace H (Negative) Urine Glucose (UA) Trace H (Negative) Urine Ketones Negative (Negative) Urine Blood Negative (Negative) Urine Nitrite Negative (Negative) Urine Bilirubin Negative (Negative) Urine Urobilinogen <2.0 (<2.0) mg/dL Ur Leukocyte Esterase Negative (Negative) 09/08/23 09/08/23 Range/Units 11:12 11:12 WBC (3.8-10.6) k/uL RBC (3.80-5.40) m/uL Hgb (11.4-16.0) gm/dL Hct (34.0-46.0) % MCV (80.0-100.0) fL MCH (25.0-35.0) pg MCHC (31.0-37.0) g/dL RDW (11.5-15.5) % Plt Count (150-450) k/uL MPV Neutrophils % % Lymphocytes % % Monocytes % % Eosinophils % % Basophils % % Neutrophils # (1.3-7.7) k/uL Lymphocytes # (1.0-4.8) k/uL Monocytes # (0-1.0) k/uL Eosinophils # (0-0.7) k/uL Basophils # (0-0.2) k/uL Sodium (137-145) mmol/L Potassium (3.5-5.1) mmol/L Chloride (98-107) mmol/L Carbon Dioxide (22-30) mmol/L Anion Gap mmol/L BUN (7-17) mg/dL Creatinine (0.52-1.04) mg/dL Est GFR (CKD-EPI)AfAm (>60 ml/min/1.73 sqM) Est GFR (CKD-EPI)NonAf (>60 ml/min/1.73 sqM) Glucose (74-99) mg/dL Plasma Lactic Acid Larry 1.1 (0.7-2.0) mmol/L Calcium (8.4-10.2) mg/dL Total Bilirubin (0.2-1.3) mg/dL AST (14-36) U/L ALT (4-34) U/L Alkaline Phosphatase (38-126) U/L Troponin I 0.013 (0.000-0.034) ng/mL Total Protein (6.3-8.2) g/dL Albumin (3.5-5.0) g/dL Amylase (30-110) U/L Lipase (23-300) U/L Urine Color Urine Appearance (Clear) Urine pH (5.0-8.0) Ur Specific [place] (1.001-1.035) Urine Protein (Negative) Urine Glucose (UA) (Negative) Urine Ketones (Negative) Urine Blood (Negative) Urine Nitrite (Negative) Urine Bilirubin (Negative) Urine Urobilinogen (<2.0) mg/dL Ur Leukocyte Esterase (Negative) - Radiology Data Radiology results: report reviewed, image reviewed Disposition Clinical Impression: Mechanical back pain, Nausea Disposition: HOME SELF-CARE Instructions (If sedation given, give patient instructions): Acute Low Back Pain (ED), Back Pain (ED) Additional Instructions: Return to the emergency department with any new, worsening, or concerning symptoms. Try taking the Mobic once daily. Do not take this with any other anti-inflammatories such as ibuprofen, take one or the other. You may take it with Tylenol. Take the Robaxin has 1-2 tablets up to 3-4 times daily, however be aware that this may make you drowsy. You can also take the Tramadol up to every 6 hours, however this may also make you drowsy. You can apply the lidocaine patches daily for additional relief. Follow up with your primary care provider in 1-2 days. Prescriptions: Lidocaine 5% Patch [Lidoderm 5% Patch] 1 patch TOPICAL DAILY PRN #30 patch PRN Reason: Pain Meloxicam [Mobic] 15 mg PO DAILY #15 tab methocarbamoL [Robaxin-750] 1,500 mg PO TID PRN #30 tab PRN Reason: Pain Ondansetron Odt [Zofran Odt] 4 mg PO Q8HR PRN #15 tab PRN Reason: Nausea And Vomiting Is patient prescribed a controlled substance at d/c from ED?: No Referrals: Kristian Car [Primary Care Provider] - 1-2 days Time of Disposition: 17:35
[2023-09-08 11:33] LABS: ALT 12 U/L (4-34); AST 22 U/L (14-36); African American GFR (CKD) >90 (>60 ml/min/1.73 sqM); Albumin 3.6 g/dL (3.5-5.0); Alkaline Phosphatase 103 U/L (38-126); Amylase 60 U/L (30-110); Anion Gap 5 mmol/L; Blood Urea Nitrogen 21 mg/dL (7-17); Calcium 8.9 mg/dL (8.4-10.2); Carbon Dioxide 27 mmol/L (22-30); Chloride 107 mmol/L (98-107); Glucose 163 mg/dL (74-99); Lipase 87 U/L (23-300); Non-African American GFR(CKD) 86 (>60 ml/min/1.73 sqM); Potassium 3.7 mmol/L (3.5-5.1); Sodium 139 mmol/L (137-145); Total Bilirubin 0.7 mg/dL (0.2-1.3); Total Protein 6.4 g/dL (6.3-8.2)
[2023-09-08 11:35] VITALS: RESP 18
[2023-09-08] MEDS: hydrALAZINE HCL 20 MG/ML 1 ML VIAL IVP STA (12:25)
--- NOTE | 2023-09-08 12:29 | CT ---
EXAMINATION TYPE: CT abdomen pelvis wo con DATE OF EXAM: 09/08/2023 COMPARISON: 07/16/2023 INDICATION: Left flank pain DLP: 365.8 mGycm, Automated exposure control for dose reduction was used. CONTRAST: 0 mL of Isovue 300. Study performed without Oral Contrast TECHNIQUE: Axial images were obtained from above the diaphragm to the pubic rami in the axial plane a t 5 mm thick sections. Reconstructed images are reviewed on the computer in the coronal plane. FINDINGS: Limited CT sections are obtained the lung bases. The lung bases are clear. Coronary artery calcific ations present. Vascular calcifications within the aorta. CT ABDOMEN: Liver: Normal Spleen: Normal Pancreas: Normal Adrenal glands: The adrenal glands are normal. Gallbladder: Not identified. Kidneys: No masses are evident. No hydronephrosis is present. There is a 3.4 cm cyst superior media l right kidney. Nonobstructing renal stones or a superior pole right kidney. There is a small cyst on the posterior inferior left renal cortex measuring 1.5 cm. There is a cyst at inferior pole left kid ivania measuring 1.9 cm. Some vascular calcifications likely present at the bilateral kidneys. Previous distal left ureteral stone is not clearly identified on the current examination. Multiple phlebolith s within the pelvis. No hydroureter is evident. Aorta: Vascular calcification is within the aorta. Inferior vena cava: Normal. CT PELVIS: Loops of bowel within the abdomen and pelvis are normal. This study is without oral contrast limi ting bowel evaluation. Fecal debris is at the proximal ascending colon. There is redundancy of the si gmoid colon. Appendix: Not identified. No dilated tubular structure or inflammatory change is evident. Urinary bladder: Normal. Genitourinary structures: Uterus and ovaries are not identified. Osseous structures: No suspicious lytic or sclerotic lesions. Degenerative changes are within the lum bar spine. IMPRESSION: 1. Nonobstructing renal stones upper pole right kidney. Renal cysts and vascular calcification in re nal vessels may be present bilaterally. 2. Fecal debris within the cecum. 3. Resolution previous suspected distal left ureteral stone
[2023-09-08 13:34] VITALS: TEMP 98
[2023-09-08 14:46] LABS: Appearance,Urine Clear (Clear); Bilirubin,Urine Negative (Negative); Blood,Urine Negative (Negative); Color,Urine Colorless; Glucose,Urine (UA) Trace (Negative); Ketones,Urine Negative (Negative); Leukocyte Esterase,Urine Negative (Negative); Nitrite,Urine Negative (Negative); Protein,Urine Trace (Negative); Specific Gravity,Urine 1.015 (1.001-1.035); Urobilinogen,Urine <2.0 mg/dL (<2.0)
[2023-09-08] MEDS: PROCHLORPERAZINE INJ 10 MG/2 ML VIAL IVP STA (15:16)
[2023-09-08] MEDS: HYDROmorphone 1 MG/ML 1 ML SYRINGE IVP STA (15:16)
[2023-09-08] MEDS: LABETALOL 5 MG/ML VIAL MDV IVP STA (15:44)
[2023-09-08] MEDS: LIDOCAINE 4% PATCH TOPICAL ONE (16:45)
[2023-09-08] MEDS: ONDANSETRON 4 MG ODT STARTER PACK 2 TAB BTL PO STA (18:12)
[2023-09-08] MEDS: traMADol 50 MG STARTER PACK 3 TAB BTL PO STA (18:13)
[2023-09-08 18:34] VITALS: BP 112/57; PULSE 88
== END 2023-09-08 18:26 | disposition home or self-care (01) ==
LOC: EC 10:53
DX: M54.9 Dorsalgia, unspecified (principal); R11.0 Nausea; E11.9 Type 2 diabetes mellitus without complications; I10 Essential (primary) hypertension; F17.200 Nicotine dependence, unspecified, uncomplicated; I25.10 Atherosclerotic heart disease of native coronary artery without angina pectoris; Z79.84 Long term (current) use of oral hypoglycemic drugs; Z88.2 Allergy status to sulfonamides; Z88.8 Allergy status to other drugs, medicaments and biological substances
CPT/HCPCS: 36415; 80053; 82150; 83605; 83690; 84484; 85025; 81003; 74176; 99285; 96374; 96375 ×6; 96376; 96361 ×2; J2270; J0360; J0780; J2405; J1170; J1885; S0119; J1920

== ENCOUNTER → 2023-10-06 | Outpatient (CLI) | payer MEDICARE, OTHER ==
--- NOTE | 2023-10-07 15:42 | US ---
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 Echogenic focus in the midpole measuring 5 mm. No hydronephrosis. Left Kidney: Multiple cysts, largest = 2.1 x 1.9 x 2.0cm. Echogenic focus in the midpole measuring 5 mm. No hydronephrosis. Bladder: appears wnl Bilateral Jets seen: no IMPRESSION: Benign bilateral renal cysts measuring up to 3.5 cm. A punctate nonobstructing 5 mm calculus within e ither kidney.
== END | disposition home or self-care (01) ==
LOC: RADUSWWP 14:12
PROVIDERS: ATTEND Urology
DX: N20.0 Calculus of kidney (principal); N28.1 Cyst of kidney, acquired
CPT/HCPCS: 76770

== ENCOUNTER 2023-11-02 15:35 | Emergency (ER) | payer MEDICARE, OTHER ==
[2023-11-02 15:47] VITALS: RESP 18; TEMP 98.1
--- NOTE | 2023-11-02 15:54 | ED ---
General Adult HPI - General Chief complaint: Fall Stated complaint: Fall Time Seen by Provider: 11/02/23 15:36 Source: patient, EMS Mode of arrival: EMS Limitations: no limitations - History of Present Illness Initial comments: Dictation was produced using [employer] dictation software. please excuse any grammatical, word or spelling errors. Chief Complaint: 78-year-old female presents emergency department after fall History of Present Illness: Patient 78-year-old female she was walking after getting out of her car. States that she lost her balance when walking over a step. States that she fell backwards hit the back of her head. Patient denies any history of cardiomyopathy. She does report having had a CABG several years ago. She does not take any medications. Denies any chest pain shortness of breath. Denies any weakness to her extremities. The ROS documented in this emergency department record has been reviewed and confirmed by me. Those systems with pertinent positive or negative responses have been documented in the HPI. All other systems are other negative and/or noncontributory. - Related Data Home Medications Medication Instructions Recorded Confirmed Atorvastatin Calcium [Lipitor] 40 mg PO HS 12/25/17 09/08/23 Albuterol Inhaler [Ventolin Hfa 1 - 2 puff INHALATION RT-Q6H PRN 07/16/23 09/08/23 Inhaler] Budesonide/Formoterol Fumarate 2 puff INHALATION RT-BID 07/16/23 09/08/23 [Symbicort 160-4.5 Mcg Inhaler] Pioglitazone [Actos] 15 mg PO DAILY 07/16/23 09/08/23 traZODone HCL [Desyrel] 25 mg PO HS 07/16/23 09/08/23 PARoxetine [Paxil] 10 mg PO DAILY 07/17/23 09/08/23 Gabapentin [Neurontin] 300 mg PO BID 09/08/23 09/08/23 Previous Rx's Medication Instructions Recorded Lidocaine 5% Patch [Lidoderm 5% 1 patch TOPICAL DAILY PRN #30 patch 09/08/23 Patch] Meloxicam [Mobic] 15 mg PO DAILY #15 tab 09/08/23 Ondansetron Odt [Zofran Odt] 4 mg PO Q8HR PRN #15 tab 09/08/23 methocarbamoL [Robaxin-750] 1,500 mg PO TID PRN #30 tab 09/08/23 Allergies Allergy/AdvReac Type Severity Reaction Status Date / Time adhesive tape Allergy Rash/Hives Verified 11/02/23 15:43 Sulfa (Sulfonamide Allergy Unknown Verified 11/02/23 15:43 Antibiotics) Childhood Review of Systems ROS Statement: Those systems with pertinent positive or pertinent negative responses have been documented in the HPI. ROS Other: All systems not noted in ROS Statement are negative. Past Medical History Past Medical History: Coronary Artery Disease (CAD), Chest Pain / Angina, Diabetes Mellitus, Hypertension, Osteoarthritis (OA) Additional Past Medical History / Comment(s): back pain, kidney stones History of Any Multi-Drug Resistant Organisms: None Reported Past Surgical History: Back Surgery, Coronary Bypass/CABG, Hysterectomy, Orthopedic Surgery, Tonsillectomy Additional Past Surgical History / Comment(s): STENT -PANCREAS, Anterior Cervical Fusion 08/29/20, Past Anesthesia/Blood Transfusion Reactions: No Reported Reaction Past Psychological History: No Psychological Hx Reported Smoking Status: Current every day smoker Past Alcohol Use History: None Reported Past Drug Use History: None Reported - Past Family History Mother Family Medical History: Myocardial Infarction ([place]) General Exam - General Exam Comments Initial Comments: PHYSICAL EXAM: General Impression: Alert and oriented x3, not in acute distress HEENT: Small superficial laceration to the occiput measuring 3 mm, extra-ocular movements intact, pupils equal and reactive to light bilaterally, mucous membranes moist. Cardiovascular: Heart regular rate and rhythm Chest: Able to complete full sentences, no retractions, no tachypnea Abdomen: abdomen soft, non-tender, non-distended, no organomegaly Musculoskeletal: Pulses present and equal in all extremities, no peripheral edema Motor: no focal deficits noted Neurological: CN II-XII grossly intact, no focal motor or sensory deficits noted Skin: Intact with no visualized rashes Psych: Normal affect and mood Limitations: no limitations Course Vital Signs 11/02/23 15:39 Temperature 98.1 F Pulse Rate 64 Respiratory 18 Rate Blood Pressure 189/81 O2 Sat by Pulse 98 Oximetry EKG Findings - EKG Comments: EKG Findings:: My EKG interpretation: Ventricular rate 63, sinus rhythm,. Wall 157, QRS 118, QTc 400. No KS prolongation, no QTC prolongation, no ST or T-wave changes noted. EKG compared to July 17, 2023 showing no changes. Overall, this EKG is unremarkable Medical Decision Making - Medical Decision Making Was pt. sent in by a medical professional or institution ([facility], [facility], urgent care, hospital, or penitentiary...) When possible be specific @ -No Did you speak to anyone other than the patient for history (EMS, parent, family, police, friend...)? What history was obtained from this source @ -No Did you review nursing and triage notes (agree or disagree)? Why? @ -I reviewed and agree with nursing and triage notes Were old charts reviewed (outside hosp., previous admission, EMS record, old EKG, old radiological studies, urgent care reports/EKG's, penitentiary records)? Report findings @ -No old charts were reviewed Differential Diagnosis (chest pain, altered mental status, abdominal pain women, abdominal pain men, vaginal bleeding, musculoskeletal, weakness, fever, dyspnea, syncope, headache, dizziness, GI bleed, back pain, seizure, CVA, palpatations, mental health)? @ -Not applicable EKG interpreted by me (3pts min.). @ -See above X-rays interpreted by me (1pt min.). @ -Chest x-ray pelvis x-ray shows no acute processes. CT interpreted by me (1pt min.). @ -CT scan of the head and C-spine shows no acute processes. U/S interpreted by me (1pt. min.). @ -None done What testing was considered but not performed or refused? (CT, X-rays, U/S, labs)? Why? @ -None What meds were considered but not given or refused? Why? @ -None Did you discuss the management of the patient with other professionals (professionals i.e. [facility] Neil, [facility], lab, RT, psych nurse, home health care social worker, senior controls technician, teacher, drug abuse resistance education officer, insurance case manager)? Give summary @ -No Was smoking cessation discussed for >3mins.? @ -No Was critical care preformed (if so, how long)? @ -No Were there social determinants of health that impacted care today? How? (Homelessness, low income, unemployed, alcoholism, drug addiction, transportation, low edu. Level, literacy, decrease access to med. care, fci, rehab)? @ -No Was there de-escalation of care discussed even if they declined (Discuss DNR or withdrawal of care, Hospice)? DNR status @ -No What co-morbidities impacted this encounter? (DM, HTN, Smoking, COPD, CAD, Cancer, CVA, ARF, Chemo, Hep., AIDS, mental health diagnosis, sleep apnea, mo rbid obesity)? @ -None Was patient admitted / discharged? Hospital course, mention meds given and r oute, prescriptions, significant lab abnormalities, going to OR and other pertinent info. @ -78-year-old female presents emergency department after fall. Patient well- appearing at the bedside. Laboratory evaluation obtained. CBC, coag panel metabolic panel is unremarkable. Imaging studies are negative. C-collar cleared. Patient observed emergency department for approximately 2 hours and 30 minutes. Reevaluated bedside at 8:15 PM found to be stable to condition. Patient be discharged. Undiagnosed new problem with uncertain prognosis? @ -No Drug Therapy requiring intensive monitoring for toxicity (Heparin, Nitro, Insulin, Cardizem)? @ -No Were any procedures done? @ -Staple repair for small head laceration was offered to the patient she refused just wanted bandage given that scalp lesion was very small Diagnosis/symptom? Acute, or Chronic, or Acute on Chronic? Uncomplicated ( without systemic symptoms) or Complicated (systemic symptoms)? @ -Fall, head contusion Side effects of treatment? @ -No Exacerbation, Progression, or Severe Exacerbation? @ -No Poses a threat to life or bodily function? How? (Chest pain, [place], [place], pneumonia, PE, COPD, DKA, ARF, appy, cholecystitis, CVA, Diverticulitis, Homicidal, Suicidal, threat to staff... and all critical care pts) @ -No - Lab Data Result diagrams: 11/02/23 16:00 11/02/23 16:00 Lab Results 11/02/23 11/02/23 11/02/23 Range/Units 16:00 16:00 17:33 WBC 6.4 (3.8-10.6) k/uL RBC 4.10 (3.80-5.40) m/uL Hgb 13.0 (11.4-16.0) gm/dL Hct 39.8 (34.0-46.0) % MCV 97.2 (80.0-100.0) fL MCH 31.8 (25.0-35.0) pg MCHC 32.7 (31.0-37.0) g/dL RDW 14.2 (11.5-15.5) % Plt Count 161 (150-450) k/uL MPV 10.0 Neutrophils % 49 % Lymphocytes % 38 % Monocytes % 8 % Eosinophils % 1 % Basophils % 1 % Neutrophils # 3.2 (1.3-7.7) k/uL Lymphocytes # 2.4 (1.0-4.8) k/uL Monocytes # 0.5 (0-1.0) k/uL Eosinophils # 0.1 (0-0.7) k/uL Basophils # 0.1 (0-0.2) k/uL PT 10.8 (10.0-12.5) sec INR 1.0 (<1.2) APTT 24.0 (22.0-30.0) sec Sodium 135 L (137-145) mmol/L Potassium 4.0 (3.5-5.1) mmol/L Chloride 107 (98-107) mmol/L Carbon Dioxide 23 (22-30) mmol/L Anion Gap 5 mmol/L BUN 19 H (7-17) mg/dL Creatinine 0.62 (0.52-1.04) mg/dL Est GFR (CKD-EPI)AfAm >90 (>60 ml/min/1.73 sqM) Est GFR (CKD-EPI)NonAf 87 (>60 ml/min/1.73 sqM) Glucose 114 H (74-99) mg/dL Calcium 9.3 (8.4-10.2) mg/dL Disposition Clinical Impression: Fall Disposition: HOME SELF-CARE Condition: Good Instructions (If sedation given, give patient instructions): Fall Prevention for Older Adults (ED) Is patient prescribed a controlled substance at d/c from ED?: No Referrals: Kristian Car [Primary Care Provider] - 1-2 days Time of Disposition: 18:12
[2023-11-02 16:22] LABS: African American GFR (CKD) >90 (>60 ml/min/1.73 sqM); Anion Gap 5 mmol/L; Blood Urea Nitrogen 19 mg/dL (7-17); Calcium 9.3 mg/dL (8.4-10.2); Carbon Dioxide 23 mmol/L (22-30); Chloride 107 mmol/L (98-107); Glucose 114 mg/dL (74-99); Non-African American GFR(CKD) 87 (>60 ml/min/1.73 sqM); Sodium 135 mmol/L (137-145)
[2023-11-02 16:23] LABS: Basophils # (A) 0.1 k/uL (0-0.2); Basophils % (A) 1 %; Eosinophils # (A) 0.1 k/uL (0-0.7); Eosinophils % (A) 1 %; HCT 39.8 % (34.0-46.0); Lymphocytes # (A) 2.4 k/uL (1.0-4.8); Lymphocytes % (A) 38 %; MCH 31.8 pg (25.0-35.0); MCHC 32.7 g/dL (31.0-37.0); MCV 97.2 fL (80.0-100.0); Monocytes # (A) 0.5 k/uL (0-1.0); Monocytes % (A) 8 %; Neutrophils # (A) 3.2 k/uL (1.3-7.7); Neutrophils % (A) 49 %; Platelet Count 161 k/uL (150-450); RDW 14.2 % (11.5-15.5); WBC 6.4 k/uL (3.8-10.6)
--- NOTE | 2023-11-02 16:54 | CT ---
EXAMINATION TYPE: CT brain june sabillon con DATE OF EXAM: 11/02/2023 COMPARISON: 10/04/2015. HISTORY: pain after fall CT DLP: 1241.8 mGycm Automated exposure control for dose reduction was used. TECHNIQUE: CT scan of the head and cervical spine are performed without contrast. Findings: Head CT: Ventricles, basal cisterns and sulci over convexities within normal limits for the patient's age and there is no mass, mass effect or shift of midline structures. There is moderate decreased density in the periventricular white matter consistent with chronic ische laura white matter demyelination. There is no acute intra or extra-axial hemorrhage Posterior fossa including the brainstem, fourth ventricle and cerebellar pontine angles are grossly n ormal. The intraorbital contents appear normal and symmetric. Visualized paranasal sinuses are well aerated. There is bilateral sinus surgery. CT cervical spine: Craniovertebral junction relationships and prevertebral soft tissues are normal. Patient is status post anterior and interdisc fusion of C3-C6. The cervical vertebral segments are no rmal in height and alignment is no fracture or subluxation. There is moderate disc space narrowing at the C6-7 level indicating moderate degenerative disease. There is a 3 to 4 mm anterolisthesis of C7 on T1. There is mild facet degeneration but no fracture There is moderate to marked degeneration and uncovertebral joints mid and lower cervical spine There is no bony encroachment of the cervical canal. There is mild bony neural foraminal encroachment at C4-5, C5-6 and C6-7 levels bilaterally. The paraspinal soft tissues unremarkable. IMPRESSION: 1. Head CT: No acute bleed or mass effect. Stable senescent changes 2. CT cervical spine: No acute trauma. Post surgical changes of cervical fusion from C3 through C6. O steoarthritic changes and moderate degenerative disease at C6-7. .
--- NOTE | 2023-11-02 17:31 | XR ---
EXAMINATION TYPE: XR chest 2V DATE OF EXAM: 11/02/2023 5:16 PM CLINICAL INDICATION:Female, 78 years old with history of fall; COMPARISON: Chest radiographs from on 08/01/2020 TECHNIQUE: XR chest 2V Frontal and lateral views of the chest. FINDINGS: Lungs/Pleura: There is no evidence of pleural effusion, focal consolidation, or pneumothorax. Pulmonary vascularity: Unremarkable. Heart/mediastinum: Cardiomediastinal silhouette is enlarged and stable. Atherosclerotic calcificatio ns are seen in the aorta. Musculoskeletal: No acute osseous pathology. Midline sternotomy wires are noted. IMPRESSION: No acute cardiopulmonary disease/process.
--- NOTE | 2023-11-02 17:32 | XR ---
EXAMINATION TYPE: XR pelvis AP view DATE OF EXAM: 11/02/2023 5:16 PM CLINICAL INDICATION:Female, 78 years old with history of fall; COMPARISON: None TECHNIQUE: The pelvis was examined in a single projection. FINDINGS: There is no evidence of fracture or dislocation. There is no soft tissue abnormality. No a bnormal calcifications are present. The spine appears intact. The hips appear intact. Osteophyte form ation of the superior acetabulum bilaterally with mild joint space narrowing. Severe arthrosis course of the bilateral arterial vasculature. IMPRESSION: No acute osseous pathology. Mild degeneration changes of the hip.
[2023-11-02 17:54] LABS: Prothrombin Time 10.8 sec (10.0-12.5)
[2023-11-02 18:54] VITALS: BP 190/88; PULSE 71
== END 2023-11-02 18:48 | disposition home or self-care (01) ==
LOC: EC 15:35
DX: S00.93XA Contusion of unspecified part of head, initial encounter (principal); F17.200 Nicotine dependence, unspecified, uncomplicated; Z88.2 Allergy status to sulfonamides; Z91.048 Other nonmedicinal substance allergy status; Z95.1 Presence of aortocoronary bypass graft; W01.198A Fall on same level from slipping, tripping and stumbling with subsequent striking against other object, initial encounter
CPT/HCPCS: 36415; 70450; 71046; 72125; 72170; 80048; 85025; 85610; 85730; 93005; 99285

== ENCOUNTER 2024-03-27 14:46 | Emergency (ER) | payer MEDICARE, OTHER ==
[2024-03-27 15:03] VITALS: RESP 18
--- NOTE | 2024-03-27 15:27 | ED ---
General Adult HPI - General Chief complaint: Back Pain/Injury Stated complaint: back pinto Time Seen by Provider: 03/27/24 15:00 Source: patient, EMS, RN notes reviewed, old records reviewed Mode of arrival: EMS Limitations: no limitations - History of Present Illness Initial comments: This is a 78-year-old female who presents to the emergency department complaining of right-sided back pain that radiates down her leg. Patient states this been ongoing for about a week. Patient states more recently she is having some right-sided upper back pain as well. Patient thought it was coming from her hip area but states the 2 do not seem to be related. Patient also complains of injuring her left foot while she was riding her scooter she hit it up against the wall and now it is a little swollen and tender on the anterior surface. Patient denies any calf pain patient [place] any knee pain. Patient states she had sciatica years ago but has not had it in quite a while. Patient denies any recent trauma to her lower back. - Related Data Home Medications Medication Instructions Recorded Confirmed Atorvastatin Calcium [Lipitor] 40 mg PO HS 12/25/17 09/08/23 Albuterol Inhaler [Ventolin Hfa 1 - 2 puff INHALATION RT-Q6H PRN 07/16/23 09/08/23 Inhaler] Budesonide/Formoterol Fumarate 2 puff INHALATION RT-BID 07/16/23 09/08/23 [Symbicort 160-4.5 Mcg Inhaler] Pioglitazone [Actos] 15 mg PO DAILY 07/16/23 09/08/23 traZODone HCL [Desyrel] 25 mg PO HS 07/16/23 09/08/23 PARoxetine [Paxil] 10 mg PO DAILY 07/17/23 09/08/23 Gabapentin [Neurontin] 300 mg PO BID 09/08/23 09/08/23 Previous Rx's Medication Instructions Recorded Lidocaine 5% Patch [Lidoderm 5% 1 patch TOPICAL DAILY PRN #30 patch 09/08/23 Patch] Meloxicam [Mobic] 15 mg PO DAILY #15 tab 09/08/23 Ondansetron Odt [Zofran Odt] 4 mg PO Q8HR PRN #15 tab 09/08/23 methocarbamoL [Robaxin-750] 1,500 mg PO TID PRN #30 tab 09/08/23 predniSONE [Deltasone] 40 mg PO DAILY #6 tab 03/27/24 Allergies Allergy/AdvReac Type Severity Reaction Status Date / Time adhesive tape Allergy Rash/Hives Verified 11/02/23 15:43 Sulfa (Sulfonamide Allergy Unknown Verified 11/02/23 15:43 Antibiotics) Childhood Review of Systems ROS Statement: Those systems with pertinent positive or pertinent negative responses have been documented in the HPI. ROS Other: All systems not noted in ROS Statement are negative. Past Medical History Past Medical History: Coronary Artery Disease (CAD), Chest Pain / Angina, Diabetes Mellitus, Hypertension, Osteoarthritis (OA) Additional Past Medical History / Comment(s): back pain, kidney stones History of Any Multi-Drug Resistant Organisms: None Reported Past Surgical History: Back Surgery, Coronary Bypass/CABG, Hysterectomy, Orthopedic Surgery, Tonsillectomy Additional Past Surgical History / Comment(s): STENT -PANCREAS, Anterior Cervical Fusion 08/29/20, Past Anesthesia/Blood Transfusion Reactions: No Reported Reaction Past Psychological History: No Psychological Hx Reported Smoking Status: Current every day smoker Past Alcohol Use History: None Reported Past Drug Use History: None Reported - Past Family History Mother Family Medical History: Myocardial Infarction ([place]) General Exam - General Exam Comments Initial Comments: GENERAL: Patient is well-developed and well-nourished. Patient is nontoxic and well- hydrated and is in mild distress. ENT: Neck is soft and supple. No significant lymphadenopathy is noted. Oropharynx is clear. Moist mucous membranes. Neck has full range of motion without eliciting any pain. EYES: The sclera were anicteric and conjunctiva were pink and moist. Extraocular movements were intact and pupils were equal round and reactive to light. Eyelids were unremarkable. PULMONARY: Unlabored respirations. Good breath sounds bilaterally. No audible rales rhonchi or wheezing was noted. CARDIOVASCULAR: There is a regular rate and rhythm without any murmurs gallops or rubs. ABDOMEN: Soft and nontender with normal bowel sounds. No palpable organomegaly was noted. There is no palpable pulsatile mass. SKIN: Skin is clear with no lesions or rashes and otherwise unremarkable. NEUROLOGIC: Patient is alert and oriented x3. Cranial nerves II through XII are grossly intact. Motor and sensory are also intact. Normal speech, volume and content. Symmetrical smile. Straight leg test is positive on the right leg had about 30 degrees MUSCULOSKELETAL: Normal extremities with adequate strength and full range of motion. Patient's left foot is mild edema 1+. Patient has no calf tenderness. Patient has no knee pain. Patient has reproducible back pain on the right lower lumbar. Patient also has some upper back pain in the paraspinous muscles on the right LYMPHATICS: No significant lymphadenopathy is noted PSYCHIATRIC: Normal psychiatric evaluation. Limitations: no limitations Course Vital Signs 03/27/24 03/27/24 14:59 16:10 Temperature 98.0 F Pulse Rate 74 78 Respiratory 18 18 Rate Blood Pressure 172/96 154/87 O2 Sat by Pulse 96 97 Oximetry Medical Decision Making - Medical Decision Making Was pt. sent in by a medical professional or institution (, JACOB, SAP TECHNICAL ARCHITECT, urgent care, hospital, or correction...) When possible be specific @ -No Did you speak to anyone other than the patient for history (EMS, parent, family, police, friend...)? What history was obtained from this source @ -No Did you review nursing and triage notes (agree or disagree)? Why? @ -I reviewed and agree with nursing and triage notes Were old charts reviewed (outside hosp., previous admission, EMS record, old EKG, old radiological studies, urgent care reports/EKG's, correction records)? Report findings @ -No old charts were reviewed Differential Diagnosis? @ -Differential Musculoskeletal Muscular strain, contusion, ligament sprain, fracture, arthritis, septic arthritis, bursitis, cellulitis, muscle spasm, nerve compression, DVT, arterial occlusion, herpes zoster, electrolyte abnormality, tumor.... This is not meant to be in all inclusive list EKG interpreted by me (3pts min.). @ -None done X-rays interpreted by me (1pt min.). @ -X-ray of the foot shows no acute abnormality. X-ray of the lumbar spine shows no acute abnormality a lot of osteoarthritis CT interpreted by me (1pt min.). @ -None done U/S interpreted by me (1pt. min.). @ -None done What testing was considered but not performed or refused? (CT, X-rays, U/S, labs)? Why? @ -None What meds were considered but not given or refused? Why? @ -None Did you discuss the management of the patient with other professionals (professionals i.e. , PA, SAP TECHNICAL ARCHITECT, lab, RT, psych nurse, oncology social worker, environmental technology professor, teacher, environmental health officer, director of casework)? Give summary @ -No Was smoking cessation discussed for >3mins.? @ -No Was critical care preformed (if so, how long)? @ -No Were there social determinants of health that impacted care today? How? (Homelessness, low income, unemployed, alcoholism, drug addiction, transportation, low edu. Level, literacy, decrease access to med. care, residential, rehab)? @ -No Was there de-escalation of care discussed even if they declined (Discuss DNR or withdrawal of care, Hospice)? DNR status @ -No What co-morbidities impacted this encounter? (DM, HTN, Smoking, COPD, CAD, Cancer, CVA, ARF, Chemo, Hep., AIDS, mental health diagnosis, sleep apnea, morbid obesity)? @ -None Was patient admitted / discharged? Hospital course, mention meds given and route, prescriptions, significant lab abnormalities, going to OR and other pertinent info. @ -Patient received Toradol 0.5 of Dilaudid and Solu-Medrol I went back into the room the patient's pain was considerably better and she was sleeping. Undiagnosed new problem with uncertain prognosis? @ -No Drug Therapy requiring intensive monitoring for toxicity (Heparin, Nitro, Insulin, Cardizem)? @ -No Were any procedures done? @ -No Diagnosis/symptom? @ -Sciatica Acute, or Chronic, or Acute on Chronic? @ -Acute Uncomplicated (without systemic symptoms) or Complicated (systemic symptoms)? @ -Uncomplicated Side effects of treatment? @ -No Exacerbation, Progression, or Severe Exacerbation? @ -No Poses a threat to life or bodily function? How? (Chest pain, USA, [place], pneumonia, PE, COPD, DKA, ARF, appy, cholecystitis, CVA, Diverticulitis, Homicidal, Suicidal, threat to staff... and all critical care pts) @ -No Diagnosis/symptom? @ -Foot strain Acute, or Chronic, or Acute on Chronic? @ -Acute Uncomplicated (without systemic symptoms) or Complicated (systemic symptoms)? @ -complicated Side effects of treatment? @ -None Exacerbation, Progression, or Severe Exacerbation] @ -No Poses a threat to life or bodily function? @ -No Disposition Clinical Impression: Strain of foot, Sciatica Disposition: HOME SELF-CARE Condition: Good Instructions (If sedation given, give patient instructions): Sciatica (ED) Prescriptions: predniSONE [Deltasone] 40 mg PO DAILY #6 tab Is patient prescribed a controlled substance at d/c from ED?: No Referrals: Kristian Car [Primary Care Provider] - 1-2 days Time of Disposition: 17:48
[2024-03-27] MEDS: KETOROLAC 15 MG/ML 1 ML VIAL IVP STA (15:36)
[2024-03-27] MEDS: HYDROmorphone 0.5 MG/0.5 ML SYRINGE IVP STA (15:37)
[2024-03-27] MEDS: methylPREDNISolone SOD SUCCI 125 MG/2 ML VIAL IV STA (15:38)
--- NOTE | 2024-03-27 16:03 | XR ---
EXAMINATION TYPE: XR lumbosacral spine min 4V DATE OF EXAM: 03/27/2024 3:57 PM CLINICAL INDICATION: Female, 78 years old with history of Sciatica; COMPARISON: None TECHNIQUE: XR lumbosacral spine min 4V - Frontal, lateral , bilateral oblique and coned in L5-S1 late ral views of the spine. FINDINGS: No evidence of any acute osseous pathology. No evidence of loss of vertebral body height i s seen. There is straightening of the alignment of the lumbar vertebral bodies. Mild scattered disc s pace narrowing. Multilevel marginal osteophyte formation throughout the visualized spine. There is fa cet joint arthropathy throughout the spine. Scattered at least moderate neural foraminal stenosis. At herosclerosis of the arterial vasculature. IMPRESSION: 1. No acute fracture. 2. Moderate to severe multilevel disc degeneration.
--- NOTE | 2024-03-27 16:04 | XR ---
EXAMINATION TYPE: XR foot complete LT DATE OF EXAM: 03/27/2024 3:58 PM CLINICAL INDICATION: Female, 78 years old with history of Sciatica; COMPARISON: None TECHNIQUE: XR foot complete LT examined in the AP, oblique, and lateral projections. FINDINGS: No evidence of any acute osseous pathology. Multifocal degeneration changes throughout the joints of the foot with osteophyte formation and joint space narrowing. Calcaneal plantar spurring is present. IMPRESSION: No evidence of acute fracture. Multifocal degeneration changes throughout the joints of the foot.
[2024-03-27 18:08] VITALS: BP 146/80; PULSE 76; TEMP 97.9
== END 2024-03-27 18:12 | disposition home or self-care (01) ==
LOC: EC 14:46
DX: S96.911A Strain of unspecified muscle and tendon at ankle and foot level, right foot, initial encounter (principal); M54.31 Sciatica, right side; V27.49XA Other motorcycle driver injured in collision with fixed or stationary object in traffic accident, initial encounter; Y93.55 Activity, bike riding
CPT/HCPCS: 99283; 96374; 96375; 72110; 73630; J1885; J1170; J2919

== ENCOUNTER 2024-05-30 19:35 | Observation (INO) | payer MEDICARE, OTHER ==
[2024-05-30] MEDS: ONDANSETRON 4 MG/2 ML VIAL IVP STA (20:38)
[2024-05-30] MEDS: HYDROmorphone 1 MG/ML 1 ML SYRINGE IVP STA (20:38)
--- NOTE | 2024-05-30 20:40 | ED ---
Abdominal Pain HPI - General Chief Complaint: Abdominal Pain Stated Complaint: ABD Pain Time Seen by Provider: 05/30/24 20:22 Source: patient, EMS Mode of arrival: EMS Limitations: no limitations - History of Present Illness Initial Comments: This patient is a 78-year-old woman with history of previous kidney stones who complains of vomiting and pain she states is similar to previous episode. The symptoms started approximately 30 hours ago. She states that she had onset of nausea and vomiting and then shortly after that she had developed right sided abdominal pain and radiation to right flank. MD Complaint: abdominal pain, flank pain Onset/Timin -: hour(s) Location: RUQ, RLQ Radiation: R flank Migration to: no migration Severity: severe Quality: aching Consistency: constant Improves With: nothing Worsens With: nothing Associated Symptoms: nausea, vomiting - Related Data Home Medications Medication Instructions Recorded Confirmed Atorvastatin Calcium [Lipitor] 40 mg PO HS 12/25/17 05/31/24 Albuterol Inhaler [Ventolin Hfa 1 - 2 puff INHALATION RT-Q6H PRN 07/16/23 05/31/24 Inhaler] Budesonide/Formoterol Fumarate 2 puff INHALATION RT-BID 07/16/23 05/31/24 [Symbicort 160-4.5 Mcg Inhaler] Pioglitazone [Actos] 15 mg PO DAILY 07/16/23 05/31/24 traZODone HCL [Desyrel] 25 mg PO HS 07/16/23 05/31/24 PARoxetine [Paxil] 10 mg PO DAILY 07/17/23 05/31/24 Previous Rx's Medication Instructions Recorded Acetaminophen Tab [Tylenol] 650 mg PO Q6HR PRN tab 06/03/24 Mag Hydrox/Al Hydrox/Simeth 15 ml PO Q6HR PRN ml 06/03/24 [Maalox] Ondansetron Odt [Zofran Odt] 4 mg PO Q8HR PRN #20 tab 06/03/24 Pantoprazole Sodium [Protonix] 40 mg PO BID #60 tab 06/03/24 Sucralfate [Carafate] 1 gm PO TID #90 tablet 06/03/24 Allergies Allergy/AdvReac Type Severity Reaction Status Date / Time adhesive tape Allergy Rash/Hives Verified 05/31/24 08:03 Sulfa (Sulfonamide Allergy Unknown Verified 05/31/24 08:03 Antibiotics) Childhood Review of Systems ROS Statement: Those systems with pertinent positive or pertinent negative responses have been documented in the HPI. ROS Other: All systems not noted in ROS Statement are negative. Constitutional: Denies: fever, chills, weakness Respiratory: Denies: cough, dyspnea Cardiovascular: Denies: chest pain, palpitations, edema Gastrointestinal: Reports: abdominal pain, nausea, vomiting. Denies: diarrhea, constipation, hematemesis, melena, hematochezia Genitourinary: Reports: frequency. Denies: dysuria, hematuria Musculoskeletal: Denies: back pain Skin: Denies: rash Neurological: Denies: headache, weakness Past Medical History Past Medical History: Coronary Artery Disease (CAD), Chest Pain / Angina, Diabetes Mellitus, Hypertension, Osteoarthritis (OA) Additional Past Medical History / Comment(s): back pain, kidney stones History of Any Multi-Drug Resistant Organisms: None Reported Past Surgical History: Back Surgery, Coronary Bypass/CABG, Hysterectomy, Orthopedic Surgery, Tonsillectomy Additional Past Surgical History / Comment(s): STENT -PANCREAS, Anterior Cervical Fusion 08/29/20, Past Anesthesia/Blood Transfusion Reactions: No Reported Reaction Past Psychological History: No Psychological Hx Reported Smoking Status: Current every day smoker Past Alcohol Use History: None Reported Past Drug Use History: None Reported - Past Family History Mother Family Medical History: Myocardial Infarction ([place]) General Exam Limitations: no limitations General appearance: alert, in no apparent distress Head exam: Present: atraumatic, normocephalic Eye exam: Present: normal appearance. Absent: scleral icterus, conjunctival injection Neck exam: Present: normal inspection Respiratory exam: Present: normal lung sounds bilaterally. Absent: respiratory distress, wheezes, rales, rhonchi, stridor, accessory muscle use Cardiovascular Exam: Present: regular rate, normal rhythm, normal heart sounds. Absent: systolic murmur, diastolic murmur, rubs, gallop GI/Abdominal exam: Present: soft, tenderness. Absent: distended, guarding, rebound Extremities exam: Present: normal inspection, normal capillary refill. Absent: pedal edema, calf tenderness Back exam: Present: normal inspection. Absent: CVA tenderness (R), CVA tenderness (L) Neurological exam: Present: alert Skin exam: Present: warm, dry, intact, normal color. Absent: rash Course Vital Signs 11/04/24 11/04/24 19:36 21:40 Temperature 98.1 F Pulse Rate 91 98 Respiratory 16 16 Rate Blood Pressure 231/98 132/73 O2 Sat by Pulse 99 97 Oximetry Medical Decision Making - Medical Decision Making The patient had CT scan of the abdomen and pelvis that I interpreted as negative for bowel obstruction, free air, or acute surgical condition Was pt. sent in by a medical professional or institution (, PA, OFFICE SERVICES MANAGER, urgent care, hospital, or penitentiary...) When possible be specific @ -[No] Did you speak to anyone other than the patient for history (EMS, parent, family, police, friend...)? What history was obtained from this source @ -[No] Did you review nursing and triage notes (agree or disagree)? Why? @ -[I reviewed and agree with nursing and triage notes] Were old charts reviewed (outside hosp., previous admission, EMS record, old EKG, old radiological studies, urgent care reports/EKG's, penitentiary records)? Report findings @ -[No old charts were reviewed] Differential Diagnosis (chest pain, altered mental status, abdominal pain women, abdominal pain men, vaginal bleeding, weakness, fever, dyspnea, syncope, headache, dizziness, GI bleed, back pain, seizure, CVA, palpatations, mental health, musculoskeletal)? @ -[Differential Abdominal Pain Women: Appendicitis, Cholecystitis, diverticulosis, ischemic bowel, pancreatitis, hepatitis, UTI, gastroenteritis, AAA, incarcerated hernia, bowel obstruction, constipation, inflammatory bowel, hepatitis, peptic ulcer disease, splenic infarction, perforated viscus, vulvitis, ovarian torsion, PID, kidney stone, placenta abruption, this is not meant to be an all-inclusive list EKG interpreted by me (3pts min.). @ -[As above] X-rays interpreted by me (1pt min.). @ -[None done] CT interpreted by me (1pt min.). @ -[Interpreted as above U/S interpreted by me (1pt. min.). @ -[None done] What testing was considered but not performed or refused? (CT, X-rays, U/S, labs)? Why? @ -[None] What meds were considered but not given or refused? Why? @ -[None] Did you discuss the management of the patient with other professionals (professionals i.e. , PA, OFFICE SERVICES MANAGER, lab, RT, psych nurse, social work program coordinator, aircraft engine mechanic supervisor, teacher, chief green officer, medical case manager)? Give summary @ -[No] Was smoking cessation discussed for >3mins.? @ -[No] Was critical care preformed (if so, how long)? @ -[No] Were there social determinants of health that impacted care today? How? (Homelessness, low income, unemployed, alcoholism, drug addiction, transportation, low edu. Level, literacy, decrease access to med. care, [facility], rehab)? @ -[No] Was there de-escalation of care discussed even if they declined (Discuss DNR or withdrawal of care, Hospice)? DNR status @ -[No] What co-morbidities impacted this encounter? (DM, HTN, Smoking, COPD, CAD, Cancer, CVA, ARF, Chemo, Hep., AIDS, mental health diagnosis, sleep apnea, morbid obesity)? @ -[None] Was patient admitted / discharged? Hospital course, mention meds given and route, prescriptions, significant lab abnormalities, going to OR and other pertinent info. @ -[Patient is 78-year-old woman here for abdominal pain and following CT she will be admitted to have gastroenterology consultation for upper endoscopy. The patient does have an abnormal appearance to the pylorus which requires further evaluation. Undiagnosed new problem with uncertain prognosis? @ -[No] Drug Therapy requiring intensive monitoring for toxicity (Heparin, Nitro, Insulin, Cardizem)? @ -[No] Were any procedures done? @ -[No] Diagnosis/symptom? @ -[Acute abdominal pain Acute, or Chronic, or Acute on Chronic? @ -[Acute Uncomplicated (without systemic symptoms) or Complicated (systemic symptoms)? @ -[Uncomplicated Side effects of treatment? @ -[No] Exacerbation, Progression, or Severe Exacerbation? @ -[No] Poses a threat to life or bodily function? How? (Chest pain, USA, [place], pneumonia, PE, COPD, DKA, ARF, appy, cholecystitis, CVA, Diverticulitis, Homicidal, Suicidal, threat to staff... and all critical care pts) @ -[Requires further evaluation - Lab Data Result diagrams: 06/02/24 05:18 06/02/24 05:18 Lab Results 05/30/24 05/30/24 05/30/24 Range/Units 20:22 20:22 20:22 WBC 7.9 (3.8-10.6) k/uL RBC 4.29 (3.80-5.40) m/uL Hgb 13.5 (11.4-16.0) gm/dL Hct 42.4 (34.0-46.0) % MCV 98.9 (80.0-100.0) fL MCH 31.5 (25.0-35.0) pg MCHC 31.9 (31.0-37.0) g/dL RDW 14.4 (11.5-15.5) % Plt Count 173 (150-450) k/uL MPV 9.7 Neutrophils % 76 % Lymphocytes % 15 % Monocytes % 6 % Eosinophils % 0 % Basophils % 0 % Neutrophils # 6.0 (1.3-7.7) k/uL Lymphocytes # 1.2 (1.0-4.8) k/uL Monocytes # 0.5 (0-1.0) k/uL Eosinophils # 0.0 (0-0.7) k/uL Basophils # 0.0 (0-0.2) k/uL Sodium 137 (137-145) mmol/L Potassium 3.7 (3.5-5.1) mmol/L Chloride 103 (98-107) mmol/L Carbon Dioxide 26 (22-30) mmol/L Anion Gap 8 mmol/L BUN 16 (7-17) mg/dL Creatinine 0.67 (0.52-1.04) mg/dL Est GFR (CKD-EPI)AfAm >90 (>60 ml/min/1.73 sqM) Est GFR (CKD-EPI)NonAf 85 (>60 ml/min/1.73 sqM) Glucose 145 H (74-99) mg/dL Plasma Lactic Acid Larry 1.2 (0.7-2.0) mmol/L Calcium 8.7 (8.4-10.2) mg/dL Total Bilirubin 1.0 (0.2-1.3) mg/dL AST 20 (14-36) U/L ALT 11 (4-34) U/L Alkaline Phosphatase 94 (38-126) U/L Total Protein 6.1 L (6.3-8.2) g/dL Albumin 3.6 (3.5-5.0) g/dL Amylase 37 (30-110) U/L Lipase 62 (23-300) U/L Urine Color Urine Appearance (Clear) Urine pH (5.0-8.0) Ur Specific Porter (1.001-1.035) Urine Protein (Negative) Urine Glucose (UA) (Negative) Urine Ketones (Negative) Urine Blood (Negative) Urine Nitrite (Negative) Urine Bilirubin (Negative) Urine Urobilinogen (<2.0) mg/dL Ur Leukocyte Esterase (Negative) Urine RBC (0-5) /hpf Urine WBC (0-5) /hpf Ur Squamous Epith Cells (0-4) /hpf Amorphous Sediment (None) /hpf Urine Bacteria (None) /hpf 05/30/24 Range/Units 20:51 WBC (3.8-10.6) k/uL RBC (3.80-5.40) m/uL Hgb (11.4-16.0) gm/dL Hct (34.0-46.0) % MCV (80.0-100.0) fL MCH (25.0-35.0) pg MCHC (31.0-37.0) g/dL RDW (11.5-15.5) % Plt Count (150-450) k/uL MPV Neutrophils % % Lymphocytes % % Monocytes % % Eosinophils % % Basophils % % Neutrophils # (1.3-7.7) k/uL Lymphocytes # (1.0-4.8) k/uL Monocytes # (0-1.0) k/uL Eosinophils # (0-0.7) k/uL Basophils # (0-0.2) k/uL Sodium (137-145) mmol/L Potassium (3.5-5.1) mmol/L Chloride (98-107) mmol/L Carbon Dioxide (22-30) mmol/L Anion Gap mmol/L BUN (7-17) mg/dL Creatinine (0.52-1.04) mg/dL Est GFR (CKD-EPI)AfAm (>60 ml/min/1.73 sqM) Est GFR (CKD-EPI)NonAf (>60 ml/min/1.73 sqM) Glucose (74-99) mg/dL Plasma Lactic Acid Larry (0.7-2.0) mmol/L Calcium (8.4-10.2) mg/dL Total Bilirubin (0.2-1.3) mg/dL AST (14-36) U/L ALT (4-34) U/L Alkaline Phosphatase (38-126) U/L Total Protein (6.3-8.2) g/dL Albumin (3.5-5.0) g/dL Amylase (30-110) U/L Lipase (23-300) U/L Urine Color Colorless Urine Appearance Clear (Clear) Urine pH 7.5 (5.0-8.0) Ur Specific Porter 1.010 (1.001-1.035) Urine Protein Trace H (Negative) Urine Glucose (UA) Trace H (Negative) Urine Ketones 1+ H (Negative) Urine Blood Negative (Negative) Urine Nitrite Negative (Negative) Urine Bilirubin Negative (Negative) Urine Urobilinogen <2.0 (<2.0) mg/dL Ur Leukocyte Esterase Moderate H (Negative) Urine RBC 3 (0-5) /hpf Urine WBC 1 (0-5) /hpf Ur Squamous Epith Cells 2 (0-4) /hpf Amorphous Sediment Rare H (None) /hpf Urine Bacteria Rare H (None) /hpf - EKG Data -: EKG Interpreted by Me Disposition Clinical Impression: Abdominal pain Disposition: ADMITTED IP TO THIS HOSP Condition: Fair Is patient prescribed a controlled substance at d/c from ED?: No
[2024-05-30 20:42] LABS: ALT 11 U/L (4-34); AST 20 U/L (14-36); African American GFR (CKD) >90 (>60 ml/min/1.73 sqM); Albumin 3.6 g/dL (3.5-5.0); Alkaline Phosphatase 94 U/L (38-126); Amylase 37 U/L (30-110); Anion Gap 8 mmol/L; Blood Urea Nitrogen 16 mg/dL (7-17); Calcium 8.7 mg/dL (8.4-10.2); Carbon Dioxide 26 mmol/L (22-30); Chloride 103 mmol/L (98-107); Glucose 145 mg/dL (74-99); Lipase 62 U/L (23-300); Non-African American GFR(CKD) 85 (>60 ml/min/1.73 sqM); Potassium 3.7 mmol/L (3.5-5.1); Sodium 137 mmol/L (137-145); Total Protein 6.1 g/dL (6.3-8.2)
[2024-05-30 20:50] LABS: Basophils % (A) 0 %; Eosinophils % (A) 0 %; HCT 42.4 % (34.0-46.0); HGB 13.5 gm/dL (11.4-16.0); Lymphocytes # (A) 1.2 k/uL (1.0-4.8); Lymphocytes % (A) 15 %; MCH 31.5 pg (25.0-35.0); MCHC 31.9 g/dL (31.0-37.0); MCV 98.9 fL (80.0-100.0); Mean Platelet Volume 9.7; Monocytes # (A) 0.5 k/uL (0-1.0); Monocytes % (A) 6 %; Neutrophils % (A) 76 %; Platelet Count 173 k/uL (150-450); RBC 4.29 m/uL (3.80-5.40); RDW 14.4 % (11.5-15.5); WBC 7.9 k/uL (3.8-10.6)
[2024-05-30 21:04] LABS: Amorphous Sediment,Urine Rare /hpf; Appearance,Urine Clear (Clear); Bacteria,Urine Rare /hpf; Bilirubin,Urine Negative (Negative); Blood,Urine Negative (Negative); Color,Urine Colorless; Glucose,Urine (UA) Trace (Negative); Ketones,Urine 1+ (Negative); Leukocyte Esterase,Urine Moderate (Negative); Nitrite,Urine Negative (Negative); PH, Urine 7.5 (5.0-8.0); Protein,Urine Trace (Negative); RBC,Urine 3 /hpf (0-5); Squamous Epithelial Cell,Urine 2 /hpf (0-4); Urobilinogen,Urine <2.0 mg/dL (<2.0); WBC,Urine 1 /hpf (0-5)
--- NOTE | 2024-05-30 21:17 | CT ---
EXAMINATION TYPE: CT abdomen pelvis wo con DATE OF EXAM: 05/30/2024 9:04 PM COMPARISON: CT most recent 09/08/2023 CLINICAL INDICATION: Female, 78 years old with history of right abdominal/flank pain; Patient complai ns of bilateral flank pain (L>R), history of kidney stones. TECHNIQUE: Axial CT abdomen pelvis wo con;Sagittal and coronal reformats were created on a separate workstation. Contrast used: mL of , (none if empty) Oral contrast used: without Oral Contrast (none if empty) CT DLP: 415.5 mGycm, Automated exposure control for dose reduction was used. FINDINGS: LOWER CHEST: The heart is mildly to moderately enlarged for size. Coronary artery atherosclerosis. ABDOMEN LIVER: Unremarkable GALLBLADDER AND BILE DUCTS: Gallbladder is surgically absent with mild intrahepatic and extra hepatic biliary dilatation likely physiologic and a postcholecystectomy change. No evidence of choledocholit hiasis. PANCREAS: Unremarkable. SPLEEN: Unremarkable. ADRENAL GLANDS: Unremarkable. KIDNEYS AND URETERS: Renal sinus calcifications likely atherosclerotic and/or nonobstructing calculi. No obstructing calculi visualized. Renal cortical cyst present. Cortical thinning of the right super ior renal cortex.. PELVIS BLADDER: No evidence for wall thickening or mass given limitations of exam. REPRODUCTIVE: The uterus is surgically absent. ABDOMEN & PELVIS STOMACH AND BOWEL: No evidence of bowel obstruction. The duodenum is dilated in the first portion wit h the gastric antrum protruding into this portion. Second portion duodenal diverticulum. PERITONEUM/RETROPERITONEUM: No evidence of pneumoperitoneum or free fluid. VASCULATURE: Severe atherosclerotic calcifications are present throughout the abdominal aorta and its branches. No evidence of aortic aneurysm. MUSCULOSKELETAL: No acute osseous abnormalities. Moderate disc degeneration changes are present throu ghout the thoracolumbar spine. LYMPH NODES: No gross evidence for lymphadenopathy. SOFT TISSUE/ABDOMINAL WALL: Unremarkable IMPRESSION: 1. No evidence for obstructing calculus. No definitive evidence for acute abdominal process. 2. Dilation of the first portion the duodenum with the gastric pylorus extending into the dilated po rtion. This has a abnormal morphology Findings prior somewhat similar to 09/08/2023 consider endoscopy for complete evaluation of the gastric pylorus. 3. Cardiomegaly with moderate to severe coronary artery atherosclerosis. 4. Severe degeneration changes of the spine. 5. Severe atherosclerosis of the arterial vasculature. [facility], , 05/30/2024 9:15 PM
[2024-05-31] MEDS ORDERED: NALOXONE 0.4 MG/ML 1 ML VIAL IV PRN (00:54)
[2024-05-31] MEDS ORDERED: ONDANSETRON 4 MG/2 ML VIAL IVP PRN (00:54)
[2024-05-31] MEDS ORDERED: ACETAMINOPHEN TAB 325 MG TAB PO PRN (00:54)
[2024-05-31] MEDS ORDERED: MAG HYDROX/AL HYDROX/SIMETH 30 ML CUP PO PRN (00:54)
[2024-05-31] MEDS: SODIUM CHLORIDE 0.9% 1,000 ML IV SCH (01:30)
[2024-05-31] MEDS: ONDANSETRON 4 MG/2 ML VIAL IVP STA (01:31)
[2024-05-31] MEDS: MORPHINE SULFATE 4 MG/ML SYRINGE IV STA (01:34)
[2024-05-31] MEDS: MORPHINE SULFATE 4 MG/ML SYRINGE IV PRN (08:12)
[2024-05-31] MEDS: PANTOPRAZOLE 40 MG/10 ML VIAL IV SCH (08:12)
[2024-05-31] MEDS ORDERED: ALBUTEROL NEBULIZED 2.5 MG/3 ML INHALATION PRN (09:45)
[2024-05-31] MEDS ORDERED: DEXTROSE 50% SYRINGE 50 ML IVP PRN ×2 (09:46)
[2024-05-31] MEDS: ONDANSETRON 4 MG/2 ML VIAL IVP PRN (11:23)
--- NOTE | 2024-05-31 13:59 | P.GSCN ---
History of Present Illness Consult date: 05/31/24 History of present illness: CHIEF COMPLAINT: Abdominal pain HISTORY OF PRESENT ILLNESS: This is a 78 female who presented to the hospital with complaints of abdominal pain. According to ER report patient had report of the pain was similar to today's stones and had pain on the right side of the abdomen and flank. Patient reported to me complaints of epigastric abdominal pain that radiated back for the last 2 days. Patient reports she has had similar pain when she had her kidney stones. Patient reports having nausea. She has been having bowel movements. No blood in the stools. Patient had EGD and colonoscopy 6 months ago at [facility]. Apparently her in the EGD had reported gastric ulcers and colonoscopy had been terminated due to poor bowel prep. Patient had CT scan abdomen pelvis completed in ER that reported no kidney stones. It did report dilation in the first portion of the duodenum with gastric pylorus extending into dilated portion. Findings similar to August 2023. PAST MEDICAL HISTORY: Coronary Artery Disease (CAD), Chest Pain / Angina, Diabetes Mellitus, Hypertension, Osteoarthritis, PAST SURGICAL HISTORY: CABG, hysterectomy, pancreatic stent, cholecystectomy MEDICATIONS: See below ALLERGIES: See below SOCIAL HISTORY: No illicit drug use. Nicotine dependence REVIEW OF SYSTEMS: CONSTITUTIONAL: Denies fever or chills. HEENT: Denies blurred vision, vision changes, or eye pain. Denies hemoptysis CARDIOVASCULAR: Denies chest pain or pressure. RESPIRATORY: No shortness of breath. GASTROINTESTINAL: See HPI for pertinent findings HEMATOLOGIC: Denies bleeding disorders. GENITOURINARY: Denies any blood in urine or increased urinary frequency. SKIN: Denies pruitis. Denies rash. PHYSICAL EXAM: VITAL SIGNS: Reviewed GENERAL: Well-developed in no acute distress. HEENT: No sclera icterus. Extraocular movements grossly intact. Moist buccal mucosa. Head is atraumatic, normocephalic. No nasal drainage. ABDOMEN: Soft. Nondistended. Epigastric tenderness with palpation NEUROLOGIC: Alert and oriented. Cranial nerves II through XII grossly intact. LABORATORY DATA: WBC 7.9 Hgb 13.5 platelets 173 Sodium 137 potassium 3.7 creatinine 0.67 Lactic acid 1.2 LFTs normal lipase 62 IMAGING: CT scan findings report no evidence for obstructing calculus. No definitive evidence for acute abdominal process. Dilation of the first portion of the duodenum with gastric pylorus extending into the dilated portion. This has an abnormal morphology consider endoscopy. ASSESSMENT: 1. Epigastric abdominal pain. CT scan reported dilation in the first portion of the duodenum with gastric pylorus extending into the dilated portion PLAN: -Upper GI with esophagus and small bowel ordered for evaluation of abdominal pain and duodenum dilation -Patient will possibly need EGD -Okay for clear liquid diet and n.p.o. after midnight for upper GI -Continue Protonix -Continue antiemetics. Zofran increased to every 6 hours -Continue pain management Physician Project Intern note has been reviewed by physician. Signing provider agrees with the documented findings, assessment, and plan of care. Past Medical History Past Medical History: Coronary Artery Disease (CAD), Chest Pain / Angina, Diabetes Mellitus, Hypertension, Osteoarthritis (OA) Additional Past Medical History / Comment(s): back pain, kidney stones History of Any Multi-Drug Resistant Organisms: None Reported Past Surgical History: Back Surgery, Coronary Bypass/CABG, Hysterectomy, Orthopedic Surgery, Tonsillectomy Additional Past Surgical History / Comment(s): STENT -PANCREAS, Anterior Cervical Fusion 08/29/20, Past Anesthesia/Blood Transfusion Reactions: No Reported Reaction Past Psychological History: No Psychological Hx Reported Smoking Status: Current every day smoker Past Alcohol Use History: None Reported Additional Past Alcohol Use History / Comment(s): STARTED SMOKING AT AGE 21 QUIT AT AGE 30 STARTED AGAIN IN 08/2018 SMOKES 1/2 PPD Past Drug Use History: None Reported - Past Family History Mother Family Medical History: Myocardial Infarction ([place]) Medications and Allergies Home Medications Medication Instructions Recorded Confirmed Type Atorvastatin Calcium [Lipitor] 40 mg PO HS 12/25/17 05/31/24 History Albuterol Inhaler [Ventolin Hfa 1 - 2 puff INHALATION RT-Q6H PRN 07/16/23 05/31/24 History Inhaler] Budesonide/Formoterol Fumarate 2 puff INHALATION RT-BID 07/16/23 05/31/24 History [Symbicort 160-4.5 Mcg Inhaler] Pioglitazone [Actos] 15 mg PO DAILY 07/16/23 05/31/24 History traZODone HCL [Desyrel] 25 mg PO HS 07/16/23 05/31/24 History PARoxetine [Paxil] 10 mg PO DAILY 07/17/23 05/31/24 History Allergies Allergy/AdvReac Type Severity Reaction Status Date / Time adhesive tape Allergy Rash/Hives Verified 05/31/24 08:03 Sulfa (Sulfonamide Allergy Unknown Verified 05/31/24 08:03 Antibiotics) Childhood Surgical - Exam Vital Signs Temp Pulse Resp BP Pulse Ox 98.1 F 91 16 231/98 99 05/30/24 19:36 05/30/24 19:36 05/30/24 19:36 05/30/24 19:36 05/30/24 19:36 Results - Labs 05/30/24 20:22 05/30/24 20:22 Abnormal Lab Results - Last 24 Hours (Table) 05/30/24 05/30/24 Range/Units 20:22 20:51 Glucose 145 H (74-99) mg/dL Total Protein 6.1 L (6.3-8.2) g/dL Urine Protein Trace H (Negative) Urine Glucose (UA) Trace H (Negative) Urine Ketones 1+ H (Negative) Ur Leukocyte Esterase Moderate H (Negative) Amorphous Sediment Rare H (None) /hpf Urine Bacteria Rare H (None) /hpf Diabetes panel 05/30/24 Range/Units 20:22 Sodium 137 (137-145) mmol/L Potassium 3.7 (3.5-5.1) mmol/L Chloride 103 (98-107) mmol/L Carbon Dioxide 26 (22-30) mmol/L BUN 16 (7-17) mg/dL Creatinine 0.67 (0.52-1.04) mg/dL Glucose 145 H (74-99) mg/dL Calcium 8.7 (8.4-10.2) mg/dL AST 20 (14-36) U/L ALT 11 (4-34) U/L Alkaline Phosphatase 94 (38-126) U/L Total Protein 6.1 L (6.3-8.2) g/dL Albumin 3.6 (3.5-5.0) g/dL Calcium panel 05/30/24 Range/Units 20:22 Calcium 8.7 (8.4-10.2) mg/dL Albumin 3.6 (3.5-5.0) g/dL Pituitary panel 05/30/24 Range/Units 20:22 Sodium 137 (137-145) mmol/L Potassium 3.7 (3.5-5.1) mmol/L Chloride 103 (98-107) mmol/L Carbon Dioxide 26 (22-30) mmol/L BUN 16 (7-17) mg/dL Creatinine 0.67 (0.52-1.04) mg/dL Glucose 145 H (74-99) mg/dL Calcium 8.7 (8.4-10.2) mg/dL Adrenal panel 05/30/24 Range/Units 20:22 Sodium 137 (137-145) mmol/L Potassium 3.7 (3.5-5.1) mmol/L Chloride 103 (98-107) mmol/L Carbon Dioxide 26 (22-30) mmol/L BUN 16 (7-17) mg/dL Creatinine 0.67 (0.52-1.04) mg/dL Glucose 145 H (74-99) mg/dL Calcium 8.7 (8.4-10.2) mg/dL Total Bilirubin 1.0 (0.2-1.3) mg/dL AST 20 (14-36) U/L ALT 11 (4-34) U/L Alkaline Phosphatase 94 (38-126) U/L Total Protein 6.1 L (6.3-8.2) g/dL Albumin 3.6 (3.5-5.0) g/dL
--- NOTE | 2024-05-31 15:23 | FL ---
EXAMINATION TYPE: FL UGI w esophagus w sm bowel DATE OF EXAM: 05/31/2024 COMPARISON: CT scan 05/30/2024 CLINICAL INDICATION: Female, 78 years old with history of epigastric pain, dilation duodenum on CT; P HH, TECHNIQUE: A single contrast UGI study is performed with small bowel follow through. A total of 2 m inute and 58 seconds of fluoroscopic time was utilized during procedure and 31 images obtained. Tota l dose area product (DAP) in uGy*m?, mGy*cm? (or similar): Not provided. FINDINGS: Job Training Supervisor image of the abdomen shows degenerative changes of the spine. Vascular calcification s and arthropathy of the hips. Extensive retained fecal debris throughout the colon correlate for con stipation. The esophagus shows normal motility and emptying into the stomach. No evidence of hiatal hernia or s tricture noted. The stomach shows normal distensibility, peristalsis, and mucosal folds. The duodenal bulb is dilated and there is a filling defect at the level of the pyloric channel extending into the duodenal bulb. There is no proximal dilation of the stomach. Would recommend EGD to assess for mass. Second and thir d portion of the duodenal sweep is patent. Small duodenal diverticulum incidentally noted. The remaining portion of the small bowel demonstrates a normal course and caliber with no evidence of obstruction. The terminal ileum and proximal colon are not seen at 1 hour and 45 minutes. The patien t was to return to her room and a subsequent portable x-ray will be obtained. IMPRESSION: 1. There is a irregular appearance of the pyloric channel with distended duodenum and filling defect extending into the duodenal bulb which is markedly distended. Findings are suspicious for mass either arising at the level of the duodenum or distal stomach. Severe peptic ulcer disease also in differen tial diagnosis. Recommend EGD. 2. Large retained stool burden correlate for constipation. [facility], , 05/31/2024 3:20 PM
--- NOTE | 2024-05-31 15:27 | P.CONS ---
History of Present Illness - Reason for Consult Consult date: 05/31/24 Abdominal pain Requesting physician: Josh Andrade - Chief Complaint Abdominal pain, flank pain - History of Present Illness This a pleasant 78-year-old female with a past medical history including recent kidney stones, coronary artery disease, diabetes mellitus, hypertension and osteoarthritis who presented to the emergency department with complaints of abdominal pain in her left lower quadrant radiating into her left flank and back. She denies any associated nausea or vomiting. She had a CT scan of the abdomen and pelvis without contrast that reported dilation of first portion of the duodenum with gastric pylorus extending into the dilated portion abnormal morphology findings prior somewhat similar to 09/08/2023 consider endoscopy for complete evaluation of gastric pylorus. Otherwise no acute findings. Again patient denies any difficulty with swallowing, no epigastric pain, no nausea or vomiting. States overall bowel movements have been normal. States she had an EGD colonoscopy 6 months ago at [place] for a GI bleed. Reports currently not available. Patient is afebrile, labs are unremarkable. Review of Systems REVIEW OF SYSTEMS: CARDIOPULMONARY: No chest pain or shortness of breath. Gastrointestinal: Abdominal pain reported in left lower abdomen and wraps around to her flank and back. No nausea or vomiting. No hematemesis, coffee-ground emesis. No rectal bleeding, or melena. GENITOURINARY: No dysuria or hematuria. MUSCULOSKELETAL: Reports normal range of motion., Joint pain. SKIN: No rashes. No jaundice. ENDOCRINE: No chills, fevers. No excessive weight gain or loss. No polydipsia or polyuria. PSYCHIATRIC: Unremarkable. NEUROLOGY: No change in mental status. Denies dizziness, headache. ENT: Vision unremarkable. CONSTITUTIONAL: No recent weight loss. No fever, chills, night sweats. Past Medical History Past Medical History: Coronary Artery Disease (CAD), Chest Pain / Angina, Diabetes Mellitus, Hypertension, Osteoarthritis (OA) Additional Past Medical History / Comment(s): back pain, kidney stones History of Any Multi-Drug Resistant Organisms: None Reported Past Surgical History: Back Surgery, Coronary Bypass/CABG, Hysterectomy, Orthopedic Surgery, Tonsillectomy Additional Past Surgical History / Comment(s): STENT -PANCREAS, Anterior Cervica l Fusion 08/29/20, Past Anesthesia/Blood Transfusion Reactions: No Reported Reaction Past Psychological History: No Psychological Hx Reported Smoking Status: Current every day smoker Past Alcohol Use History: None Reported Additional Past Alcohol Use History / Comment(s): STARTED SMOKING AT AGE 21 QUIT AT AGE 30 STARTED AGAIN IN 08/2018 SMOKES 1/2 PPD Past Drug Use History: None Reported - Past Family History Mother Family Medical History: Myocardial Infarction ([place]) Medications and Allergies Home Medications Medication Instructions Recorded Confirmed Type Atorvastatin Calcium [Lipitor] 40 mg PO HS 12/25/17 05/31/24 History Albuterol Inhaler [Ventolin Hfa 1 - 2 puff INHALATION RT-Q6H PRN 07/16/23 05/31/24 History Inhaler] Budesonide/Formoterol Fumarate 2 puff INHALATION RT-BID 07/16/23 05/31/24 History [Symbicort 160-4.5 Mcg Inhaler] Pioglitazone [Actos] 15 mg PO DAILY 07/16/23 05/31/24 History traZODone HCL [Desyrel] 25 mg PO HS 07/16/23 05/31/24 History PARoxetine [Paxil] 10 mg PO DAILY 07/17/23 05/31/24 History Allergies Allergy/AdvReac Type Severity Reaction Status Date / Time adhesive tape Allergy Rash/Hives Verified 05/31/24 08:03 Sulfa (Sulfonamide Allergy Unknown Verified 05/31/24 08:03 Antibiotics) Childhood Physical Exam Vitals: Vital Signs Temp Pulse Pulse Resp BP BP Pulse Ox 05/31/24 08:11 98.1 F 89 18 165/84 96 05/31/24 01:55 98.0 F 92 17 153/83 96 05/31/24 01:40 98.0 F 85 18 142/72 99 05/30/24 21:40 98 16 132/73 97 05/30/24 19:36 98.1 F 91 16 231/98 99 Intake and Output 05/30/24 05/31/24 05/31/24 22:59 06:59 14:59 Other: # Voids 1 Weight 59.421 kg 59.421 kg General appearance: The patient is alert, oriented, appears in no acute distress. HET: Head is normocephalic and atraumatic. Conjunctiva pink. Sclera anicteric. Neck: Supple without lymphadenopathy. Trachea midline. Heart: Regular. Lungs: Equal expansion, normal respiratory effort. Abdomen: Soft, left lower quadrant abdominal tenderness and CVA tenderness, nondistended. Skin: No rashes. No jaundice. Extremities: Normal skin color and turgor. No pedal edema. Neurological: No focal deficits. Alert and oriented x3. Results CBC & Chem 7: 05/30/24 20:22 05/30/24 20:22 Labs: Abnormal Lab Results - Last 24 Hours (Table) 05/30/24 05/30/24 Range/Units 20:22 20:51 Glucose 145 H (74-99) mg/dL Total Protein 6.1 L (6.3-8.2) g/dL Urine Protein Trace H (Negative) Urine Glucose (UA) Trace H (Negative) Urine Ketones 1+ H (Negative) Ur Leukocyte Esterase Moderate H (Negative) Amorphous Sediment Rare H (None) /hpf Urine Bacteria Rare H (None) /hpf Comments: CAT scan abdomen pelvis without contrast reports no evidence for obstructing calculus. No definitive evidence for acute abdominal process. Dilation of the first portion of the duodenum with the gastric pylorus extending into the dilated portion. This has an abnormal morphology findings prior somewhat similar to 09/08/2023 consider endoscopy for complete evaluation of the gastric pylorus. Cardiomegaly with moderate to severe coronary artery arthrosclerosis. Severe degeneration changes of the spine. Severe arthrosclerosis of the arterial vasculature. Assessment and Plan (1) Abdominal pain Narrative/Plan: 78-year-old female presenting with abdominal pain in her left lower abdominal quadrant and radiating to her flank and back. Patient had similar presentation with previous history of kidney stone status post stent in July of this year. CT abdomen pelvis reports no kidney stones. Does report dilation of first portion of duodenum with gastric pylorus extending into the dilated portion's findings similar to August 2023. Unclear etiology abdominal and flank pain more suspicious of kidney stone. Patient without any difficulty swallowing no epigastric pain. He had recent EGD colonoscopy done at [facility] about 6 months ago for GI bleed. We will request those records. Continue with workup and recommendations from general surgery. No plans on endoscopic evaluation at this time. Current Visit: Yes Status: Acute Code(s): R10.9 - UNSPECIFIED ABDOMINAL PAIN SNOMED Code(s): 51294668 Plan: 1. Continue symptomatic and supportive care 2. Pain medication as needed 3. Diet as tolerated 4. Please get records from [facility] for EGD and colonoscopy 5. No plans on endoscopic evaluation at this time 6. Protonix 40 mg daily for GI prophylaxis 7. Continue with recommendations from general surgery Thank you for this consultation, we will continue to follow. Dr. Venkata Allen I agree with the dictator's note, documented as a scribe by Jenifer Glez.
[2024-05-31] MEDS: INSULIN ASPART (NovoLOG) 100 UNIT/ML VIAL SQ SCH (16:05)
--- NOTE | 2024-05-31 16:15 | XR ---
EXAMINATION TYPE: XR abdomen 1V DATE OF EXAM: 05/31/2024 3:59 PM COMPARISON: CT 05/30/2024, upper GI 05/31/2024.e CLINICAL INDICATION: Female, 78 years old with history of POST SMALL BOWEL FILM, PER RADIOLOGIST; [facility] suspected mass. TECHNIQUE: One radiographic view of the abdomen was obtained. FINDINGS/IMPRESSION: There remains dilation of the first/second portion of duodenum as seen on prior CT. EGD recommended t o rule out mass. [facility], , 05/31/2024 4:12 PM
[2024-05-31 17:12] LABS: Glucose,Whole Blood 111 mg/dL (70-110)
[2024-05-31] MEDS: HEPARIN SODIUM,PORCINE 5,000 UNIT/ML 1 ML VIAL SQ SCH (19:45)
[2024-05-31] MEDS: traZODone HCL 50 MG TAB PO SCH (19:46)
[2024-05-31] MEDS: ATORVASTATIN 40 MG TAB PO SCH (19:46)
[2024-05-31 20:06] LABS: Glucose,Whole Blood 122 mg/dL (70-110)
[2024-05-31] MEDS: SYMBICORT 160-4.5 MCG INHALER INHALATION SCH (20:37)
--- NOTE | 2024-05-31 22:46 | P.HPIM ---
History of Present Illness H&P Date: 05/31/24 Chief Complaint: Abdominal pain Patient is a 78-year-old female with a past medical history of coronary artery disease status post CABG, hypertension, diabetes type 2 [id number], history of renal stones, currently everyday smoker presents to ER with complaints of nausea and abdominal pain mainly left-sided and radiating to the flank region. Patient felt like pain when she had renal stones and presented to ER. Denied any fever or chills. No cough or sputum production. Denied any recent illnesses. CT of the abdomen pelvis in the ER showed no evidence of obstructing calculus. No definite evidence of acute abdominal process. Dilation of the first portion of the duodenum with the gastric pylorus extending into the dilated portion. This has abnormal morphology findings. Somewhat similar to 09/08/2023 consider endoscopy or complete evaluation of the gastric pylorus. Cardiomegaly with a moderate to severe coronary artery atherosclerosis. Severe degenerative changes to the spine. Severe atherosclerosis of the arterial vasculature. Laboratory data showed WBC 7.9 hemoglobin 13.5 platelets 173 sodium 137 potassium 3.7 chloride 103 bicarb is 26 BUN 16 and creatinine 0.67 and blood sugar is 145 Her liver enzymes are not elevated lipase 62 amylase 37 and urinalysis is negative for infection. Review of Systems Constitutional: Patient denies any fever or chills . No generalized weakness or weight loss. Abdomen: Patient complains of nausea and abdominal pain. No diarrhea.. Cardiovascular: Patient denies any chest pain or short of breath no palpitations. Respiratory: patient denied any cough or sputum production. No shortness of breath Neurologic: Patient denied any numbness or tingling. no headache. Musculoskeletal: Patient denies any complaints of joint swelling or deformity. Skin: Negative Psychiatric: Negative Endocrine: No heat or cold intolerance. No recent weight gain. Genitourinary: No dysuria or hematuria. All other 14 point ROS negative except the above Past Medical History Past Medical History: Coronary Artery Disease (CAD), Chest Pain / Angina, Diabet es Mellitus, Hypertension, Osteoarthritis (OA) Additional Past Medical History / Comment(s): back pain, kidney stones History of Any Multi-Drug Resistant Organisms: None Reported Past Surgical History: Back Surgery, Coronary Bypass/CABG, Hysterectomy, Orthopedic Surgery, Tonsillectomy Additional Past Surgical History / Comment(s): STENT -PANCREAS, Anterior Cervical Fusion 08/29/20, Past Anesthesia/Blood Transfusion Reactions: No Reported Reaction Past Psychological History: No Psychological Hx Reported Smoking Status: Current every day smoker Past Alcohol Use History: None Reported Additional Past Alcohol Use History / Comment(s): STARTED SMOKING AT AGE 21 QUIT AT AGE 30 STARTED AGAIN IN 08/2018 SMOKES 1/2 PPD Past Drug Use History: None Reported - Past Family History Mother Family Medical History: Myocardial Infarction (DE) Medications and Allergies Home Medications Medication Instructions Recorded Confirmed Type Atorvastatin Calcium [Lipitor] 40 mg PO HS 12/25/17 05/31/24 History Albuterol Inhaler [Ventolin Hfa 1 - 2 puff INHALATION RT-Q6H PRN 07/16/23 05/31/24 History Inhaler] Budesonide/Formoterol Fumarate 2 puff INHALATION RT-BID 07/16/23 05/31/24 History [Symbicort 160-4.5 Mcg Inhaler] Pioglitazone [Actos] 15 mg PO DAILY 07/16/23 05/31/24 History traZODone HCL [Desyrel] 25 mg PO HS 07/16/23 05/31/24 History PARoxetine [Paxil] 10 mg PO DAILY 07/17/23 05/31/24 History Allergies Allergy/AdvReac Type Severity Reaction Status Date / Time adhesive tape Allergy Rash/Hives Verified 05/31/24 08:03 Sulfa (Sulfonamide Allergy Unknown Verified 05/31/24 08:03 Antibiotics) Childhood Physical Exam Vitals: Vital Signs Temp Pulse Pulse Resp BP BP Pulse Ox 05/31/24 08:11 98.1 F 89 18 165/84 96 05/31/24 01:55 98.0 F 92 17 153/83 96 05/31/24 01:40 98.0 F 85 18 142/72 99 05/30/24 21:40 98 16 132/73 97 05/30/24 19:36 98.1 F 91 16 231/98 99 Intake and Output 05/30/24 05/31/24 05/31/24 22:59 06:59 14:59 Other: # Voids 1 Weight 59.421 kg 59.421 kg PHYSICAL EXAMINATION: Patient is lying in the bed comfortably, no acute distress, awake alert and oriented.. HEENT: Normocephalic. Neck is supple. Pupils reactive. Nostrils clear. Oral cavity is moist. Neck reveals no JVD, carotid bruits, or thyromegaly. CHEST EXAMINATION: Trachea is central. Symmetrical expansion. Lung johansen clear to auscultation and percussion. CARDIAC: Normal S1, S2 with no gallops. No murmurs ABDOMEN: Soft. Bowel sounds normal. No organomegaly. No abdominal bruits. Extremities: reveal no edema. No clubbing or cyanosis Neurologically awake, alert, oriented x3 with well-coordinated movements. No focal deficits noted Skin: No rash or skin lesions. Psychiatric: Coperative. Nonsuicidal Musculoskeletal: No joint swelling or deformity. Normal range of motion. Results CBC & Chem 7: 05/30/24 20:22 05/30/24 20:22 Labs: Abnormal Lab Results - Last 24 Hours (Table) 05/30/24 05/30/24 Range/Units 20:22 20:51 Glucose 145 H (74-99) mg/dL Total Protein 6.1 L (6.3-8.2) g/dL Urine Protein Trace H (Negative) Urine Glucose (UA) Trace H (Negative) Urine Ketones 1+ H (Negative) Ur Leukocyte Esterase Moderate H (Negative) Amorphous Sediment Rare H (None) /hpf Urine Bacteria Rare H (None) /hpf Thrombosis Risk Factor Assmnt - DVT/VTE Prophylaxis DVT/VTE Prophylaxis: Pharmacologic Prophylaxis ordered Assessment and Plan Assessment: Abdominal pain with CT evidence of first portion of duodenum with gastric pylorus extending into the dilated portion findings similar to August 2023. Patient recently had EGD and colonoscopy at [facility] about 6 months ago for GI bleed. Coronary arteries with history of CABG Hypertension Diabetes type 2 Osteoarthritis Current everyday smoker Prior history of renal stones GI and DVT prophylaxis. Plan: Patient will be continued on IV hydration. Currently on clear liquids. Upper GI series and small bowel x-rays were ordered. General surgery and gastroenterology services on board. Continue PPI and symptomatic management for nausea and pain management. Continue with home medications and insulin sliding scale. Follow-up closely. Prognosis is guarded at this time. Time with Patient: Greater than 30
[2024-06-01 05:41] LABS: Glucose,Whole Blood 124 mg/dL (70-110)
[2024-06-01 08:48] LABS: BUN/Creat Ratio 27.12 Ratio (12.00-20.00); Blood Urea Nitrogen 21.7 mg/dL (9.0-27.0); Calcium 8.2 mg/dL (8.7-10.3); Carbon Dioxide 23.9 mmol/L (21.6-31.8); Chloride 106 mmol/L (96-109); Glucose 102 mg/dL (70-110); Potassium 3.6 mmol/L (3.5-5.5); Sodium 140 mmol/L (135-145)
[2024-06-01] MEDS: PARoxetine 10 MG TAB PO SCH (09:46)
[2024-06-01 12:15] LABS: Glucose,Whole Blood 91 mg/dL (70-110)
[2024-06-01] MEDS ORDERED: PROPOFOL 10 MG/ML 20 ML VIAL IV ONE (13:40)
[2024-06-01] MEDS ORDERED: LIDOCAINE 2% (PF) 20 MG/ML 5 ML VIAL ONE (13:40)
[2024-06-01] MEDS: IV FLUID CONTINUATION 200 ML IV ONE (13:46)
--- NOTE | 2024-06-01 13:49 | P.PN ---
Progress Note - Text Progress Note Date: 06/01/24 Patient seen this morning with her who is at the bedside to review upper GI/small bowel series. Findings reported irregular appearance of pyloric channel with distended duodenum and filling defect extending into the duodenal bulb which is markedly distended. Findings are suspicious for mass either arising at the level of the duodenum or distal stomach. Severe peptic ulcer disease also in differential diagnosis. Recommend EGD. Large retained stool burden correlate for constipation. Recommend upper endoscopy for further evaluation. Risks and benefits discussed with patient. She verbalizes understanding and is agreeable to proceed. Dr. Venkata Allen I agree with the dictator's note, documented as a scribe by Jenifer Glez.
--- NOTE | 2024-06-01 13:52 | P.PCN ---
Date of Procedure: 06/01/24 Procedure(s) Performed: BRIEF HISTORY: Patient is a 78-year-old, pleasant, female in the hospital with left-sided flank pain for the last 2 days duration. In the ER she had a CT of the abdomen pelvis done that showed abnormal appearing pylorus with dilated duodenum. She underwent an upper GI small bowel series yesterday that showed irregular appearance of the pylorus with distended duodenum and filling defect in the duodenal bulb suspicious for a mass and hence physical for an upper endoscopy to evaluate for. PROCEDURE PERFORMED: Esophagogastroduodenoscopy with biopsy. PREOPERATIVE DIAGNOSIS: Abnormal CAT scan and upper GI series showing irregular pylorus, distended duodenal bulb rule out duodenal mass. IV sedation per anesthesia. PROCEDURE: After informed consent was obtained, the patient was brought into the endoscopy unit. IV sedation was administered by Anesthesia under continuous monitoring. Initially the Olympus GIF-140 video endoscope was inserted into the mouth. Esophagus intubated without any difficulty. It was gradually advanced into the stomach and duodenum and carefully examined. The bulb appeared slightly distended and the second part of the duodenum appeared normal. The scope at this time was withdrawn to the stomach, adequately insufflated with air, and upon careful examination, there is a 2 cm prepyloric and pyloric channel ulcer identified with a clean base with no active bleeding. There was mild narrowing of the pylorus noted but the scope could be advanced through the pylorus without any difficulty. Mucosa of the antrum, had antral erosions and biopsies were done from this area. Mucosa of the body, cardia and the fundus appeared normal. The scope was then withdrawn into the esophagus. The GE junction was located at 39 cm from the incisors. The esophagus appeared normal. There were no erosions or ulcerations seen and the patient tolerated the procedure well. IMPRESSION: 1. 2 cm pyloric channel ulcer with mild narrowing and another 2 cm prepyloric ulcer with a clean base and no active bleeding status post biopsy 2. Antral erosive gastric. 3. No evidence of duodenal mass noted RECOMMENDATIONS: The findings of this examination were discussed with the patient as well as her family. She will be started on Protonix 40 mg twice daily. Avoid NSAIDs. Start on a clear liquid diet and advance as tolerated..
--- NOTE | 2024-06-01 15:02 | P.PN ---
Subjective Progress Note Date: 06/01/24 SURGICAL PROGRESS NOTE CHIEF COMPLAINT: Epigastric abdominal pain HISTORY OF PRESENT ILLNESS: Patient had upper GI completed that reported irregular appearance of the pyloric channel with distended duodenum and filling defect extending into the duodenal bulb which is markedly distended. Findings are suspicious for either mass arising in the level of the duodenum or distal stomach. Severe peptic ulcer disease in the differential. EGD was recommended. Large retained stool burden correlate for constipation. Patient had EGD completed with GI service showing a 2 cm pyloric channel ulcer with mild narrowing and another 2 cm prepyloric ulcer with no active bleeding. Antral erosive gastritis. No other evidence of duodenal mass. Patient reports epigastric pain. She has had no bowel movement since Thursday. PHYSICAL EXAM: VITAL SIGNS: Reviewed. GENERAL: Well-developed in no acute distress. ABDOMEN: Soft. Nondistended. Epigastric tenderness palpation NEUROLOGIC: Alert and oriented. Cranial nerves II through XII grossly intact. ASSESSMENT: 1. Epigastric abdominal pain status post EGD revealing 2 cm pyloric channel ulcer and prepyloric ulcer with no active bleeding and antral erosive gastritis 2. Constipation PLAN: -Continue IV Protonix -Agree with full liquid diet -Lactulose daily added for constipation Physician General Practice note has been reviewed by physician. Signing provider agrees with the documented findings, assessment, and plan of care. I have personally seen and examined the patient, reviewed the [employer] /PAs history, exam and MDM and agree with the assessment and plan as written. Based on total visit time, I have performed more than 50% of the visit. As above: Patient with upper abdominal pain and CAT scan showing suspicious findings. EGD today confirmed peptic ulcer disease with pyloric/duodenal ulceration. Continue antiacid therapy. Continue liquid diet. Objective - Vital Signs Vital signs: Vital Signs Temp 98.2 F 06/01/24 14:17 Pulse 93 06/01/24 14:17 Resp 18 06/01/24 14:17 BP 143/76 06/01/24 14:17 Pulse Ox 91 L 06/01/24 14:17 FiO2 Intake & Output 05/31/24 06/01/24 06/01/24 18:59 06:59 18:59 Intake Total 236 50 Balance 236 50 Intake: IV 50 Oral 236 Other: Voiding Method Toilet Diaper # Voids 0 1 1 - Labs CBC & Chem 7: 05/30/24 20:22 06/01/24 04:31 Labs: Abnormal Lab Results - Last 24 Hours (Table) 05/31/24 05/31/24 06/01/24 Range/Units 17:07 20:03 04:31 BUN/Creatinine Ratio (12.00-20.00) Ratio POC Glucose (mg/dL) 111 H 122 H (70-110) mg/dL Hemoglobin A1c 6.9 H (<=6.0) % Calcium (8.7-10.3) mg/dL 06/01/24 06/01/24 Range/Units 04:31 05:40 BUN/Creatinine Ratio 27.12 H (12.00-20.00) Ratio POC Glucose (mg/dL) 124 H (70-110) mg/dL Hemoglobin A1c (<=6.0) % Calcium 8.2 L (8.7-10.3) mg/dL
[2024-06-01] MEDS: LACTULOSE 20 GM/30 ML CUP PO SCH (15:43)
[2024-06-01 17:24] LABS: Glucose,Whole Blood 115 mg/dL (70-110)
[2024-06-01 19:37] LABS: Glucose,Whole Blood 123 mg/dL (70-110)
--- NOTE | 2024-06-01 21:19 | P.PN ---
Subjective Progress Note Date: 06/01/24 Patient is a 78-year-old female with a past medical history of coronary artery disease status post CABG, hypertension, diabetes type 2 [id number], history of renal stones, currently everyday smoker presents to ER with complaints of nausea and abdominal pain mainly left-sided and radiating to the flank region. Patient felt like pain when she had renal stones and presented to ER. Denied any fever or chills. No cough or sputum production. Denied any recent illnesses. CT of the abdomen pelvis in the ER showed no evidence of obstructing calculus. No definite evidence of acute abdominal process. Dilation of the first portion of the duodenum with the gastric pylorus extending into the dilated portion. This has abnormal morphology findings. Somewhat similar to 09/08/2023 consider endoscopy or complete evaluation of the gastric pylorus. Cardiomegaly with a moderate to severe coronary artery atherosclerosis. Severe degenerative changes to the spine. Severe atherosclerosis of the arterial vasculature. Laboratory data showed WBC 7.9 hemoglobin 13.5 platelets 173 sodium 137 potassiu m 3.7 chloride 103 bicarb is 26 BUN 16 and creatinine 0.67 and blood sugar is 145 Her liver enzymes are not elevated lipase 62 amylase 37 and urinalysis is negative for infection. 06/01/2024 Patient is awake alert and oriented x 3. Abdominal pain is better. Patient is status post EGD showed 1. 2 cm pyloric channel ulcer with mild narrowing and another 2 cm prepyloric ulcer with a clean base and no active bleeding status post biopsy 2. Antral erosive gastric. 3. No evidence of duodenal mass noted. Patient has been continued on IV Protonix. GI and general surgery is on board. Current medications reviewed. Objective - Vital Signs Vital signs: Vital Signs Temp 97.9 F 06/01/24 20:00 Pulse 82 06/01/24 20:00 Resp 14 06/01/24 20:00 BP 139/82 06/01/24 20:00 Pulse Ox 98 06/01/24 20:00 FiO2 Intake & Output 06/01/24 06/01/24 06/02/24 06:59 18:59 06:59 Intake Total 168 Balance 168 Intake: IV 50 Oral 118 Other: Voiding Method Toilet Diaper # Voids 1 1 - Exam PHYSICAL EXAMINATION: Patient is lying in the bed comfortably, no acute distress, awake alert and oriented.. HEENT: Normocephalic. Neck is supple. Pupils reactive. Nostrils clear. Oral cavity is moist. Neck reveals no JVD, carotid bruits, or thyromegaly. CHEST EXAMINATION: Trachea is central. Symmetrical expansion. Lung johansen clear to auscultation and percussion. CARDIAC: Normal S1, S2 with no gallops. No murmurs ABDOMEN: Soft. Bowel sounds normal. No organomegaly. No abdominal bruits. Extremities: reveal no edema. No clubbing or cyanosis Neurologically awake, alert, oriented x3 with well-coordinated movements. No focal deficits noted Skin: No rash or skin lesions. Psychiatric: Coperative. Nonsuicidal Musculoskeletal: No joint swelling or deformity. Normal range of motion. - Labs CBC & Chem 7: 05/30/24 20:22 06/01/24 04:31 Labs: Abnormal Lab Results - Last 24 Hours (Table) 06/01/24 06/01/24 06/01/24 Range/Units 04:31 04:31 05:40 BUN/Creatinine Ratio 27.12 H (12.00-20.00) Ratio POC Glucose (mg/dL) 124 H (70-110) mg/dL Hemoglobin A1c 6.9 H (<=6.0) % Calcium 8.2 L (8.7-10.3) mg/dL 06/01/24 06/01/24 Range/Units 17:23 19:35 BUN/Creatinine Ratio (12.00-20.00) Ratio POC Glucose (mg/dL) 115 H 123 H (70-110) mg/dL Hemoglobin A1c (<=6.0) % Calcium (8.7-10.3) mg/dL Assessment and Plan Assessment: Abdominal pain with CT evidence of first portion of duodenum with gastric pylorus extending into the dilated portion findings similar to August 2023. Patient recently had EGD and colonoscopy at [facility] about 6 months ago for GI bleed. Status post EGD on 06/01/2024 showed pyloric channel ulcer with mild narrowing and prepyloric ulcer with clean base and antral erosive gastritis. Coronary arteries with history of CABG Hypertension Diabetes type 2 Osteoarthritis Current everyday smoker Prior history of renal stones GI and DVT prophylaxis. Plan: Patient will be continued on IV hydration. Started on full liquid diet.. Upper GI series and small bowel x-rays was done.. Status post EGD today. General surgery and gastroenterology services on board. Continue PPI and symptomatic management for nausea and pain management. Continue with home medications and insulin sliding scale. Follow-up closely. Prognosis is guarded at this time.06/01/2024 Time with Patient: Greater than 30
[2024-06-02 05:29] LABS: Glucose,Whole Blood 98 mg/dL (70-110)
[2024-06-02 08:06] LABS: Glucose,Whole Blood 94 mg/dL (70-110)
[2024-06-02 08:33] LABS: Basophils # (A) 0.03 X 10*3/uL (0.00-0.10); Basophils % (A) 0.5 %; Eosinophils # (A) 0.06 X 10*3/uL (0.04-0.35); HCT 32.9 % (37.2-46.3); Lymphocytes # (A) 1.32 X 10*3/uL (0.90-5.00); Lymphocytes % (A) 21.1 %; MCH 32.2 pg (27.0-32.0); MCHC 33.4 g/dL (32.0-37.0); MCV 96.2 FL (80.0-97.0); Mean Platelet Volume 11.9 FL (9.5-12.2); Monocytes # (A) 0.93 X 10*3/uL (0.20-1.00); Monocytes % (A) 14.9 %; NRBC Per 100 WBC 0 X 10*3/uL (0.00-0.01); Neutrophils # (A) 3.88 X 10*3/uL (1.80-7.70); Neutrophils % (A) 61.9 %; Platelet Count 132 X 10*3/uL (140-440); RBC 3.42 X 10*6/uL (4.10-5.20); RDW 14.8 % (11.5-14.5); WBC 6.26 X 10*3/uL (4.50-10.00)
[2024-06-02 09:27] LABS: BUN/Creat Ratio 27.71 Ratio (12.00-20.00); Blood Urea Nitrogen 19.4 mg/dL (9.0-27.0); Calcium 8.2 mg/dL (8.7-10.3); Carbon Dioxide 26.6 mmol/L (21.6-31.8); Chloride 106 mmol/L (96-109); Glucose 98 mg/dL (70-110); Potassium 3.5 mmol/L (3.5-5.5); Sodium 141 mmol/L (135-145)
--- NOTE | 2024-06-02 12:09 | P.PN ---
Subjective Progress Note Date: 06/02/24 Principal diagnosis: Abdominal pain This a pleasant 78-year-old female with a past medical history including recent kidney stones, coronary artery disease, diabetes mellitus, hypertension and osteoarthritis who presented to the emergency department with complaints of abdominal pain in her left lower quadrant radiating into her left flank and back. She denies any associated nausea or vomiting. She had a CT scan of the abdomen and pelvis without contrast that reported dilation of first portion of the duodenum with gastric pylorus extending into the dilated portion abnormal morphology findings prior somewhat similar to 09/08/2023 consider endoscopy for complete evaluation of gastric pylorus. Otherwise no acute findings. Again patient denies any difficulty with swallowing, no epigastric pain, no nausea or vomiting. States overall bowel movements have been normal. States she had an EGD colonoscopy 6 months ago at [place] for a GI bleed. Reports currently not available. Patient is afebrile, labs are unremarkable. 06/02/2024 Patient seen and examined today as a follow-up. Yesterday she underwent upper endoscopy with findings of pyloric channel ulcer with mild narrowing and prepyloric ulcer with clean base and no active bleeding s/p biopsy, antral erosive gastric arthritis and no evidence of duodenal mass noted. Patient states she is having some abdominal pain today. Mostly in the mid to upper abdomen. No nausea or vomiting. Labs are unremarkable. She is afebrile. Objective - Vital Signs Vital signs: Vital Signs Temp 97.8 F 06/02/24 07:00 Pulse 80 06/02/24 07:00 Resp 20 06/02/24 07:00 BP 129/75 06/02/24 07:00 Pulse Ox 92 L 06/02/24 07:00 FiO2 Intake & Output 06/01/24 06/02/24 06/02/24 18:59 06:59 18:59 Intake Total 168 0 Balance 168 0 Intake: IV 50 Oral 118 0 Other: Voiding Method Toilet Toilet Diaper Diaper # Voids 1 1 # Bowel Movements 2 - Exam General appearance: The patient is alert, oriented, appears in no acute distress. HET: Head is normocephalic and atraumatic. Conjunctiva pink. Sclera anicteric. Neck: Supple without lymphadenopathy. Abdomen: Soft, upper abdominal tenderness, nondistended. Extremities: Normal skin color and turgor. No pedal edema Skin: No rashes, no jaundice Neurological: No focal deficits. Alert and oriented. - Labs CBC & Chem 7: 06/02/24 05:18 06/02/24 05:18 Labs: Abnormal Lab Results - Last 24 Hours (Table) 06/01/24 06/01/24 06/02/24 Range/Units 17:23 19:35 05:18 RBC 3.42 L (4.10-5.20) X 10*6/uL Hgb 11.0 L (12.0-15.0) g/dL Hct 32.9 L (37.2-46.3) % MCH 32.2 H (27.0-32.0) pg RDW 14.8 H (11.5-14.5) % Plt Count 132 L (140-440) X 10*3/uL BUN/Creatinine Ratio (12.00-20.00) Ratio POC Glucose (mg/dL) 115 H 123 H (70-110) mg/dL Calcium (8.7-10.3) mg/dL 06/02/24 Range/Units 05:18 RBC (4.10-5.20) X 10*6/uL Hgb (12.0-15.0) g/dL Hct (37.2-46.3) % MCH (27.0-32.0) pg RDW (11.5-14.5) % Plt Count (140-440) X 10*3/uL BUN/Creatinine Ratio 27.71 H (12.00-20.00) Ratio POC Glucose (mg/dL) (70-110) mg/dL Calcium 8.2 L (8.7-10.3) mg/dL Assessment and Plan (1) Abdominal pain Narrative/Plan: 78-year-old female presenting with abdominal pain in her left lower abdominal quadrant and radiating to her flank and back. Patient had similar presentation with previous history of kidney stone status post stent in July of this year. CT abdomen pelvis reports no kidney stones. Does report dilation of first portion of duodenum with gastric pylorus extending into the dilated portion's findings similar to August 2023. Unclear etiology abdominal and flank pain more suspicious of kidney stone. Patient without any difficulty swallowing no epigastric pain. He had recent EGD colonoscopy done at [facility] about 6 months ago for GI bleed. We will request those records. Continue with workup and recommendations from general surgery. No plans on endoscopic evaluation at this time. Patient is status post upper endoscopy with no findings of mass. Pyloric channel ulcer with mild narrowing and prepyloric ulcer with clean base no active bleeding antral erosive gastritis but no evidence of duodenal mass noted. Current Visit: Yes Status: Acute Code(s): R10.9 - UNSPECIFIED ABDOMINAL PAIN SNOMED Code(s): 08133570 Plan: 1. Continue symptomatic and supportive care 2. Pain medication as needed 3. Diet as tolerated 4. Continue Protonix 40 mg twice daily 5. Continue with recommendations from general surgery 6. No further workup per gastroenterology. Recommend outpatient follow-up for biopsy results. Thank you for this consultation, patient is cleared from gastroenterology. We will sign off at this time. Dr. Venkata Allen I agree with the dictator's note, documented as a scribe by Jenifer Glez.
[2024-06-02 12:52] LABS: Glucose,Whole Blood 121 mg/dL (70-110)
[2024-06-02] MEDS: SUCRALFATE 1 GM TAB PO SCH (14:25)
--- NOTE | 2024-06-02 14:29 | P.PN ---
Subjective Progress Note Date: 06/02/24 SURGICAL PROGRESS NOTE CHIEF COMPLAINT: Epigastric abdominal pain HISTORY OF PRESENT ILLNESS: Patient is status post EGD completed with GI service showing a 2 cm pyloric channel ulcer with mild narrowing and another 2 cm prepyloric ulcer with no active bleeding. Antral erosive gastritis. No other evidence of duodenal mass. Patient continues to complain of epigastric abdominal pain. Currently on a full liquid diet. Patient reports epigastric pain. She has had no bowel movement since Thursday. Patient has had a bowel movement. Afebrile. WBC 6.26 Hgb 11 PHYSICAL EXAM: VITAL SIGNS: Reviewed. GENERAL: Well-developed in no acute distress. ABDOMEN: Soft. Nondistended. Epigastric tenderness palpation NEUROLOGIC: Alert and oriented. Cranial nerves II through XII grossly intact. ASSESSMENT: 1. Epigastric abdominal pain status post EGD revealing 2 cm pyloric channel ulcer and prepyloric ulcer with no active bleeding and antral erosive gastritis 2. Constipation PLAN: -Discussed case with medicine service -Increase Protonix to twice a day and start Carafate -Continue lactulose -Continue full liquid diet Physician [employer] note has been reviewed by physician. Signing provider agrees with the documented findings, assessment, and plan of care. I have personally seen and examined the patient, reviewed the MAIL SORTER /PAs history, exam and MDM and agree with the assessment and plan as written. Based on total visit time, I have performed more than 50% of the visit. As above: Patient doing better today. Still with some pain. Denies rectal bleeding or melena. No vomiting. White blood cell count remains normal. Continue full liquid diet. Advance per GI. Continue antiacids. Agree with Carafate addition. Objective - Vital Signs Vital signs: Vital Signs Temp 97.8 F 06/02/24 07:00 Pulse 80 06/02/24 07:00 Resp 20 06/02/24 07:00 BP 129/75 06/02/24 07:00 Pulse Ox 92 L 06/02/24 07:00 FiO2 Intake & Output 06/01/24 06/02/24 06/02/24 18:59 06:59 18:59 Intake Total 168 0 Balance 168 0 Intake: IV 50 Oral 118 0 Other: Voiding Method Toilet Toilet Diaper Diaper # Voids 1 1 # Bowel Movements 2 - Labs CBC & Chem 7: 06/02/24 05:18 06/02/24 05:18 Labs: Abnormal Lab Results - Last 24 Hours (Table) 06/01/24 06/01/24 06/02/24 Range/Units 17:23 19:35 05:18 RBC 3.42 L (4.10-5.20) X 10*6/uL Hgb 11.0 L (12.0-15.0) g/dL Hct 32.9 L (37.2-46.3) % MCH 32.2 H (27.0-32.0) pg RDW 14.8 H (11.5-14.5) % Plt Count 132 L (140-440) X 10*3/uL BUN/Creatinine Ratio (12.00-20.00) Ratio POC Glucose (mg/dL) 115 H 123 H (70-110) mg/dL Calcium (8.7-10.3) mg/dL 06/02/24 06/02/24 Range/Units 05:18 12:50 RBC (4.10-5.20) X 10*6/uL Hgb (12.0-15.0) g/dL Hct (37.2-46.3) % MCH (27.0-32.0) pg RDW (11.5-14.5) % Plt Count (140-440) X 10*3/uL BUN/Creatinine Ratio 27.71 H (12.00-20.00) Ratio POC Glucose (mg/dL) 121 H (70-110) mg/dL Calcium 8.2 L (8.7-10.3) mg/dL
[2024-06-02 17:28] LABS: Glucose,Whole Blood 134 mg/dL (70-110)
[2024-06-02 20:04] LABS: Glucose,Whole Blood 239 mg/dL (70-110)
[2024-06-02] MEDS: PANTOPRAZOLE 40 MG/10 ML VIAL IV SCH (20:22)
[2024-06-03 05:40] LABS: Glucose,Whole Blood 107 mg/dL (70-110)
[2024-06-03 07:45] VITALS: BP 183/92; PULSE 75; RESP 18; TEMP 98.6
--- NOTE | 2024-06-03 09:04 | P.PN ---
Subjective Progress Note Date: 06/02/24 Patient is a 78-year-old female with a past medical history of coronary artery disease status post CABG, hypertension, diabetes type 2 [id number], history of renal stones, currently everyday smoker presents to ER with complaints of nausea and abdominal pain mainly left-sided and radiating to the flank region. Patient felt like pain when she had renal stones and presented to ER. Denied any fever or chills. No cough or sputum production. Denied any recent illnesses. CT of the abdomen pelvis in the ER showed no evidence of obstructing calculus. No definite evidence of acute abdominal process. Dilation of the first portion of the duodenum with the gastric pylorus extending into the dilated portion. This has abnormal morphology findings. Somewhat similar to 09/08/2023 consider endoscopy or complete evaluation of the gastric pylorus. Cardiomegaly with a moderate to severe coronary artery atherosclerosis. Severe degenerative changes to the spine. Severe atherosclerosis of the arterial vasculature. Laboratory data showed WBC 7.9 hemoglobin 13.5 platelets 173 sodium 137 potass ium 3.7 chloride 103 bicarb is 26 BUN 16 and creatinine 0.67 and blood sugar is 145 Her liver enzymes are not elevated lipase 62 amylase 37 and urinalysis is negative for infection. 06/01/2024 Patient is awake alert and oriented x 3. Abdominal pain is better. Patient is status post EGD showed 1. 2 cm pyloric channel ulcer with mild narrowing and another 2 cm prepyloric ulcer with a clean base and no active bleeding status post biopsy 2. Antral erosive gastric. 3. No evidence of duodenal mass noted. Patient has been continued on IV Protonix. GI and general surgery is on board. Current medications reviewed. 06/02/2024 Patient is seen in follow-up today with GI and surgery following. Patient did undergo EGD and has been cleared by GI for outpatient follow-up and will follow- up for biopsy results in the clinic. Patient continues to have some abdominal discomfort with nausea and will monitor overnight and also increase Protonix to twice daily and surgery discussing possibly initiating some Carafate. Patient is afebrile with no reports of chest pain or shortness of breath. Encouraged the patient increase activity as tolerated and will follow-up and reevaluate in the AM. Possible discharge planning in 24 hours. Review of systems: Constitutional: No reports of fatigue, fever, or chills Cardiovascular: No reports of chest pain or palpitations Respiratory: No reports of shortness of breath or cough GI: reports of nausea, no vomiting, or diarrhea, reporting abdominal discomfort : No reports of dysuria or retention Neurovascular: No reports of weakness or numbness All medications have been reviewed PHYSICAL EXAMINATION: Patient is lying in the bed comfortably, no acute distress, awake alert and oriented.. Well-developed, elderly appearing HEENT: Normocephalic. Neck is supple. Pupils reactive. Nostrils clear. Oral cavity is moist. Neck reveals no JVD, carotid bruits, or thyromegaly. CHEST EXAMINATION: Trachea is central. Symmetrical expansion. Lung johansen clear to auscultation and percussion. CARDIAC: Normal S1, S2 with no gallops. No murmurs ABDOMEN: Soft. Bowel sounds normal. No organomegaly. No abdominal bruits. Extremities: reveal no edema. No clubbing or cyanosis Neurologically awake, alert, oriented x3 with well-coordinated movements. No focal deficits noted Skin: No rash or skin lesions. Psychiatric: Cooperative. Non-suicidal Musculoskeletal: No joint swelling or deformity. Normal range of motion. Assessment: Abdominal pain with CT evidence of first portion of duodenum with gastric pylorus extending into the dilated portion findings similar to August 2023. Patient recently had EGD and colonoscopy at [facility] about 6 months ago for GI bleed. Status post EGD on 06/01/2024 showed pyloric channel ulcer with mild narrowing and prepyloric ulcer with clean base and antral erosive gastritis. Coronary arteries with history of CABG Hypertension Diabetes type 2 Osteoarthritis Current everyday smoker Prior history of renal stones GI and DVT prophylaxis. Full code Plan: Patient will be continued on IV hydration. Started on full liquid diet and recommend to continue with this diet at this time. Continue with antiemetics as needed.. Upper GI series and small bowel x-rays was done.. Status post EGD that was showing erosive esophagitis with no active bleeding noted and biopsies were obtained per GI and patient has been cleared by GI for outpatient follow-up in the clinic Patient continues to have some nausea and abdominal discomfort and will monitor overnight continuing on full liquids and antinausea medications as needed. Encouraged increase activity as tolerated with frequent walking General surgery following as well and will continue Protonix twice daily and may add Carafate Continue monitoring blood sugars with Accu-Cheks before meals and at bedtime and will adjust insulins accordingly Possible discharge in the next 24 hours The impression and plan of care has been dictated by Daisy Martinez, Nurse Practitioner as directed. Dr. Tu MD I have performed a history and examination and MDM of this patient, discussed the same with the dictator, and agree with the dictator's assessment and plan as written ,documented as a scribe. Based on total visit time, I have performed more than 50% of the visit. Objective - Vital Signs Vital signs: Vital Signs Temp 97.8 F 06/02/24 07:00 Pulse 80 06/02/24 07:00 Resp 20 06/02/24 07:00 BP 129/75 06/02/24 07:00 Pulse Ox 92 L 06/02/24 07:00 FiO2 Intake & Output 06/01/24 06/02/24 06/02/24 18:59 06:59 18:59 Intake Total 168 0 Balance 168 0 Intake: IV 50 Oral 118 0 Other: Voiding Method Toilet Toilet Diaper Diaper # Voids 1 1 # Bowel Movements 2 - Labs CBC & Chem 7: 06/02/24 05:18 06/02/24 05:18 Labs: Abnormal Lab Results - Last 24 Hours (Table) 06/01/24 06/01/24 06/02/24 Range/Units 17:23 19:35 05:18 RBC 3.42 L (4.10-5.20) X 10*6/uL Hgb 11.0 L (12.0-15.0) g/dL Hct 32.9 L (37.2-46.3) % MCH 32.2 H (27.0-32.0) pg RDW 14.8 H (11.5-14.5) % Plt Count 132 L (140-440) X 10*3/uL BUN/Creatinine Ratio (12.00-20.00) Ratio POC Glucose (mg/dL) 115 H 123 H (70-110) mg/dL Calcium (8.7-10.3) mg/dL 06/02/24 Range/Units 05:18 RBC (4.10-5.20) X 10*6/uL Hgb (12.0-15.0) g/dL Hct (37.2-46.3) % MCH (27.0-32.0) pg RDW (11.5-14.5) % Plt Count (140-440) X 10*3/uL BUN/Creatinine Ratio 27.71 H (12.00-20.00) Ratio POC Glucose (mg/dL) (70-110) mg/dL Calcium 8.2 L (8.7-10.3) mg/dL
[2024-06-03 12:04] LABS: Glucose,Whole Blood 176 mg/dL (70-110)
--- NOTE | 2024-06-03 13:35 | P.PN ---
Subjective Progress Note Date: 06/03/24 SURGICAL PROGRESS NOTE CHIEF COMPLAINT: Epigastric abdominal pain HISTORY OF PRESENT ILLNESS: Patient is status post EGD completed with GI service showing a 2 cm pyloric channel ulcer with mild narrowing and another 2 cm prepyloric ulcer with no active bleeding. Antral erosive gastritis. No other evidence of duodenal mass. Patient had increase in Protonix and was started on Carafate yesterday. She reports that her epigastric pain is improving. She is tolerating the full liquids. Agree with discharge today. Patient did have bowel movements. PHYSICAL EXAM: VITAL SIGNS: Reviewed. GENERAL: Well-developed in no acute distress. ABDOMEN: Soft. Nondistended. Epigastric tenderness palpation NEUROLOGIC: Alert and oriented. Cranial nerves II through XII grossly intact. ASSESSMENT: 1. Epigastric abdominal pain status post EGD revealing 2 cm pyloric channel ulcer and prepyloric ulcer with no active bleeding and antral erosive gastritis 2. Constipation improved PLAN: -Advance diet to low fiber -Patient can be discharge from surgical standpoint -Continue Protonix and Carafate Physician Coal Getter note has been reviewed by physician. Signing provider agrees with the documented findings, assessment, and plan of care. Objective - Vital Signs Vital signs: Vital Signs Temp 98.6 F 06/03/24 07:10 Pulse 75 06/03/24 07:10 Resp 18 06/03/24 07:10 BP 183/92 06/03/24 07:10 Pulse Ox 97 06/03/24 07:10 FiO2 Intake & Output 06/02/24 06/03/24 06/03/24 18:59 06:59 18:59 Intake Total 476 Balance 476 Intake: Oral 476 Other: Voiding Method Toilet Toilet Toilet Diaper Diaper Diaper # Voids 2 3 # Bowel Movements 1 - Labs CBC & Chem 7: 06/02/24 05:18 06/02/24 05:18 Labs: Abnormal Lab Results - Last 24 Hours (Table) 06/02/24 06/02/24 06/03/24 Range/Units 17:27 20:02 12:03 POC Glucose (mg/dL) 134 H 239 H 176 H (70-110) mg/dL
--- NOTE | 2024-06-06 10:12 | P.DS ---
Providers Date of admission: 05/31/24 00:57 Expected date of discharge: 06/03/24 Attending physician: Lang Kauffman Consults: 05/31/24 00:54 Consult Physician Routine Consulting Provider: Demetris Hong Consult Reason/Comments: abdominal pain Do you want consulting provider notified?: Yes Consult Physician Routine Consulting Provider: Sendy Allen Consult Reason/Comments: abdominal pain. Do you want consulting provider notified?: Yes Primary care physician: Kristian Car Hospital Course: Final diagnosis Abdominal pain with CT evidence of first portion of duodenum with gastric pylorus extending into the dilated portion findings similar to August 2023. Patient recently had EGD and colonoscopy at [facility] about 6 months ago for GI bleed. Status post EGD on 06/01/2024 showed pyloric channel ulcer with mild narrowing and prepyloric ulcer with clean base and antral erosive gastritis. Coronary arteries with history of CABG Hypertension Diabetes type 2 Osteoarthritis Current everyday smoker Prior history of renal stones GI and DVT prophylaxis. Full code Discharge disposition Patient is being discharged in a stable condition with guarded prognosis to home. Patient will follow-up with Dr. Car in the outpatient setting upon discharge. Patient is to continue with current medications and outpatient follow-up with GI as well as general surgery as scheduled. Total time taken is greater than 35 minutes. Hospital course This is a 78-year-old female who was recently admitted with abdominal pain with concerns of erosive gastritis. Patient did undergo EGD with GI and will continue on Protonix. Patient was started on Carafate as well although patient reports this makes her more nauseated and increased abdominal pain with cramping. Recommend outpatient follow-up with GI as well as general surgery. Patient to continue current diet and slowly advance as tolerated. Patient also instructed to follow-up with primary care provider on discharge. Patient has been cleared by consultations. Please refer to consultation notes for further HPI. Currently no reports of chest pain, shortness of breath, or palpitations. Patient is afebrile. No reports of nausea or vomiting and patient is tolerating diet. Patient will be discharged home today. Physical exam: Gen: This is a 78-year-old female who is awake, alert and oriented x 3, well- developed, elderly appearing, thin built HEENT: Head is atraumatic, normocephalic. Pupils equal, round. Sclerae is anicteric. NECK: Supple. No JVD. No lymphadenopathy. No thyromegaly. LUNGS: Clear to auscultation. No wheezes or rhonchi. No intercostal retractions. HEART: Regular rate and rhythm. No murmur. ABDOMEN: Soft. Bowel sounds are present. No masses. No tenderness. EXTREMITIES: No pedal edema. No calf tenderness. NEUROLOGICAL: Patient is awake, alert and oriented x3. Cranial nerves 2 through 12 are grossly intact. Please refer to medication reconciliation sheet for a list of medications. The impression and plan of care has been dictated by Daisy Martinez, Nurse Practitioner as directed. Dr. Tu MD I have performed a history and examination and MDM of this patient, discussed the same with the dictator, and agree with the dictator's assessment and plan as written ,documented as a scribe. Based on total visit time, I have performed more than 50% of the visit. Patient Condition at Discharge: Fair Plan - Discharge Summary New Discharge Prescriptions: New Mag Hydrox/Al Hydrox/Simeth [Maalox] 15 ml PO Q6HR PRN ml PRN Reason: Indigestion Acetaminophen Tab [Tylenol] 650 mg PO Q6HR PRN tab PRN Reason: Mild Pain Or Fever > 100.5 Sucralfate [Carafate] 1 gm PO TID #90 tablet Pantoprazole Sodium [Protonix] 40 mg PO BID #60 tab Ondansetron Odt [Zofran Odt] 4 mg PO Q8HR PRN #20 tab PRN Reason: Nausea Continue Atorvastatin Calcium [Lipitor] 40 mg PO HS Pioglitazone [Actos] 15 mg PO DAILY PARoxetine [Paxil] 10 mg PO DAILY traZODone HCL [Desyrel] 25 mg PO HS Budesonide/Formoterol Fumarate [Symbicort 160-4.5 Mcg Inhaler] 2 puff INHALATION RT-BID Albuterol Inhaler [Ventolin Hfa Inhaler] 1 - 2 puff INHALATION RT-Q6H PRN PRN Reason: Shortness Of Breath Discharge Medication List Atorvastatin Calcium [Lipitor] 40 mg PO HS 12/25/17 [History] Albuterol Inhaler [Ventolin Hfa Inhaler] 1 - 2 puff INHALATION RT-Q6H PRN 12/21/23 [History] Budesonide/Formoterol Fumarate [Symbicort 160-4.5 Mcg Inhaler] 2 puff INHALATION RT-BID 07/16/23 [History] Pioglitazone [Actos] 15 mg PO DAILY 07/16/23 [History] traZODone HCL [Desyrel] 25 mg PO HS 07/16/23 [History] PARoxetine [Paxil] 10 mg PO DAILY 07/17/23 [History] Acetaminophen Tab [Tylenol] 650 mg PO Q6HR PRN tab 06/03/24 [Rx] Mag Hydrox/Al Hydrox/Simeth [Maalox] 15 ml PO Q6HR PRN ml 06/03/24 [Rx] Ondansetron Odt [Zofran Odt] 4 mg PO Q8HR PRN #20 tab 06/03/24 [Rx] Pantoprazole Sodium [Protonix] 40 mg PO BID #60 tab 06/03/24 [Rx] Sucralfate [Carafate] 1 gm PO TID #90 tablet 06/03/24 [Rx] Follow up Appointment(s)/Referral(s): Sendy Allen MD [STAFF PHYSICIAN] - 1 Week (Office is closed- Please call and schedule follow-up appointment) Kristian Car [Primary Care Provider] - 1-2 days (Office is closed, please call to schedule follow-up appointment) Patient Instructions/Handouts: Acute Abdominal Pain (DC) Activity/Diet/Wound Care/Special Instructions: Activity limited until follow-up Follow-up with primary care provider on discharge Follow-up with general surgery outpatient as needed Follow-up with GI in 2 to 3 weeks Continue low fiber diet and slowly advance as tolerated with small frequent meals Continue a bland diet until abdomen discomfort improves Discharge Disposition: HOME SELF-CARE
== END 2024-06-03 13:45 | disposition home or self-care (01) ==
LOC: EC 19:35 → 6NMEDSUR 05-31 00:57
PROVIDERS: ADMIT Hospitalist; ATTEND Hospitalist
DX: K25.9 Gastric ulcer, unspecified as acute or chronic, without hemorrhage or perforation (principal); K29.50 Unspecified chronic gastritis without bleeding; K59.00 Constipation, unspecified; I25.10 Atherosclerotic heart disease of native coronary artery without angina pectoris; I10 Essential (primary) hypertension; E11.9 Type 2 diabetes mellitus without complications; M19.90 Unspecified osteoarthritis, unspecified site; F17.210 Nicotine dependence, cigarettes, uncomplicated; Z95.1 Presence of aortocoronary bypass graft; Z87.442 Personal history of urinary calculi; Z90.710 Acquired absence of both cervix and uterus; Z79.899 Other long term (current) drug therapy; Z79.51 Long term (current) use of inhaled steroids; Z79.84 Long term (current) use of oral hypoglycemic drugs
CPT/HCPCS: 96376 ×4; 96372; 96374 ×2; 96375 ×4; 99285; 36415; 94640 ×6; 88305; 80053; 80048 ×2; 82150; 83605; 83690; 85025 ×2; 81001; 88342; 83036; 74240; 74248; 74018; 74176; 43239; G0378 ×4; J2270 ×4; J1644; J2405 ×4; J1171; J2704; J2003; J2470 ×4

== ENCOUNTER → 2024-08-15 | Outpatient (CLI) | payer MEDICARE, OTHER ==
[2024-08-15 15:00] LABS: ALT 14 U/L (8-44); AST 20 U/L (13-35); Chol/HDL Ratio 2.85 Ratio; LDL Cholesterol,Calculated 53.2 mg/dL (0.0-131.0)
[2024-08-15 15:32] LABS: Appearance,Urine Clear (Clear); Bilirubin,Urine Negative (Negative); Blood,Urine Negative (Negative); Color,Urine Yellow (Yellow); Ketones,Urine Negative (Negative); Nitrite,Urine Negative (Negative); PH, Urine 5.5; Specific Gravity,Urine 1.013 (1.001-1.030); Urobilinogen,Urine 0.2 E.U./DL
[2024-08-15 15:41] LABS: Bacteria,Urine None Seen (None Seen)
== END | disposition home or self-care (01) ==
LOC: LABWHC1 10:28
PROVIDERS: ATTEND Internal Medicine Gastroenterology
DX: E78.2 Mixed hyperlipidemia (principal); R30.0 Dysuria
CPT/HCPCS: 36415; 80061; 81001; 84450; 84460

== ENCOUNTER → 2024-08-18 | Outpatient (CLI) | payer MEDICARE, OTHER ==
--- NOTE | 2024-08-18 10:09 | MR ---
EXAMINATION TYPE: MR lumbar spine wo con DATE OF EXAM: 08/18/2024 COMPARISON: Lumbar spine x-ray March 27, 2024. CT abdomen and pelvis May 30, 2024 HISTORY: low back pain, falls, trouble walking, bilateral leg weakness, pain that radiates down right leg. TECHNIQUE: Multiplanar, multisequence imaging of the lumbar spine is performed without IV contrast. FINDINGS: Sagittal images of the lumbar spine show vertebral body heights to appear satisfactory. . T here is grade 1 anterolisthesis L2 on L3. There is multilevel disc desiccation. There is moderately a dvanced disc space narrowing with heterogeneous more faint 1 endplate changes at the L3-L4 level. The re is moderate disc space narrowing at L2-L3, L4-L5, and L5-S1 levels. The conus medullaris is sheela l in position and signal ending inferior L1 level. Axial images show T12-L1 and L1-L2 levels to appear within normal limits. Axial images at L2-L3 level shows spondylosis with mild/moderate broad-based posterior disc protrusio n effacing the anterior thecal sac. There is mild/moderate facet arthropathy and ligamentum flavum hy pertrophy effacing the bilateral posterior lateral thecal sac. There is [id number] bilateral an terior inferior neural foraminal narrowing. Axial images at the L3-L4 level show moderate to severe broad-based disc bulge effacing anterior thec al sac and mild facet arthropathy ligament flavum hypertrophy effacing the bilateral lateral thecal s ac. There is moderate to severe right greater than left bilateral neural foraminal narrowing seen. Axial images at L4-L5 level shows posterior decompression changes. No significant disc herniation. Sp inal canal is preserved. Bilateral neural foramina are patent. Axial images at L5-S1 level show mild to moderate facet arthropathy bilaterally. Right-sided laminect leena defect is seen. Tiny right paracentral disc protrusion but spinal canal is preserved. Bilateral n eural foramina are patent. There are few simple thin-walled cysts identified in the left kidney. IMPRESSION: Postsurgical change in the lower lumbar spine. Multilevel degenerative changes in the mid to lower lumbar spine with most prominent findings now seen in the mid lumbar levels as detailed abo ve. [facility], , 08/18/2024 10:06 AM
== END | disposition home or self-care (01) ==
LOC: RADMRIMAIN 08:39
PROVIDERS: ATTEND Psychiatry & Neurology Neurology
DX: M47.816 Spondylosis without myelopathy or radiculopathy, lumbar region (principal); M51.360 Other intervertebral disc degeneration, lumbar region with discogenic back pain only; R29.6 Repeated falls; R26.0 Ataxic gait
CPT/HCPCS: 72148

== ENCOUNTER 2024-10-30 22:16 | Emergency (ER) | payer MEDICARE, OTHER ==
[2024-10-30 22:25] VITALS: TEMP 98.4
--- NOTE | 2024-10-30 23:09 | ED ---
General Adult HPI - General Chief complaint: Fall Stated complaint: Fall, R Side Pain Time Seen by Provider: 10/30/24 22:25 Source: patient, EMS Mode of arrival: EMS Limitations: no limitations - History of Present Illness Initial comments: Patient is a 79-year-old female past medical history of CAD presenting today for mechanical trip and fall and right sided pain. Patient was getting out of the car when she felt dizzy causing her to fall onto her right side. She did not hit her head or neck. She does states she has some right-sided neck pain at this point however. She was unable to ambulate after the fall. Currently endorses right sided back pain, right rib pain and right hip pain. States that she gets "dizzy spells" that been going on for 8 months and "they are not sure what caused them". She describes it as though the room is spinning, they come on when she stands up suddenly. Currently at rest she does not have any dizziness. She denies any chest pain. Endorses pain with taking a deep breath but otherwise denies shortness of breath, notes right-sided abdominal pain. Denies loss of consciousness, new numbness, weakness, changes in vision, slurred speech. - Related Data Home Medications Medication Instructions Recorded Confirmed Atorvastatin Calcium [Lipitor] 40 mg PO HS 12/25/17 08/30/24 Albuterol Inhaler [Ventolin Hfa 1 - 2 puff INHALATION RT-Q6H PRN 07/16/23 08/30/24 Inhaler] Budesonide/Formoterol Fumarate 2 puff INHALATION RT-BID 07/16/23 08/30/24 [Symbicort 160-4.5 Mcg Inhaler] Pioglitazone [Actos] 15 mg PO DAILY 07/16/23 08/30/24 traZODone HCL [Desyrel] 25 mg PO HS 07/16/23 08/30/24 PARoxetine [Paxil] 10 mg PO DAILY 07/17/23 08/30/24 Multivitamin [Multivitamins Adult 1 each PO DAILY 08/30/24 08/30/24 Gummies] Turmeric Root Extract [Turmeric] 500 mg PO DAILY 08/30/24 08/30/24 Previous Rx's Medication Instructions Recorded Acetaminophen Tab [Tylenol] 650 mg PO Q6HR PRN tab 06/03/24 Mag Hydrox/Al Hydrox/Simeth 15 ml PO Q6HR PRN ml 06/03/24 [Maalox] Ondansetron Odt [Zofran Odt] 4 mg PO Q8HR PRN #20 tab 06/03/24 Pantoprazole Sodium [Protonix] 40 mg PO BID #60 tab 06/03/24 Sucralfate [Carafate] 1 gm PO TID #90 tablet 06/03/24 Allergies Allergy/AdvReac Type Severity Reaction Status Date / Time adhesive tape Allergy Rash/Hives Verified 10/30/24 22:25 Sulfa (Sulfonamide Allergy Unknown Verified 10/30/24 22:25 Antibiotics) Childhood Review of Systems ROS Statement: Those systems with pertinent positive or pertinent negative responses have been documented in the HPI. ROS Other: All systems not noted in ROS Statement are negative. Past Medical History Past Medical History: Coronary Artery Disease (CAD), Chest Pain / Angina, Diabetes Mellitus, Hypertension, Osteoarthritis (OA) Additional Past Medical History / Comment(s): back pain, kidney stones History of Any Multi-Drug Resistant Organisms: None Reported Past Surgical History: Back Surgery, Coronary Bypass/CABG, Hysterectomy, Orthopedic Surgery, Tonsillectomy Additional Past Surgical History / Comment(s): STENT -PANCREAS, Anterior Cervical Fusion 08/29/20, Past Anesthesia/Blood Transfusion Reactions: No Reported Reaction Past Psychological History: No Psychological Hx Reported Smoking Status: Current every day smoker - Past Family History Mother Family Medical History: Myocardial Infarction ([place]) General Exam - General Exam Comments Initial Comments: PE: CONSTITUTIONAL: [no apparent distress, well appearing] SKIN: [warm, dry, no jaundice, hives or petechiae, small abrasion right knee] EYES:[ pupils are equally round, extraocular movements intact without nystagmus, clear conjunctiva, non-icteric sclera] HENT: [normocephalic, atraumatic, moist mucus membranes, oropharynx clear without exudates] NECK: , [Normal appearance, patient arrives without c-collar in place, tend erness to palpation along the right side of the neck, near C4-6)] PULMONARY: [clear to auscultation without wheezes, rhonchi, or rales, normal excursion, no accessory muscle use and no stridor, TTP along the right ribs posteriorly and anteriorly] CARDIOVASCULAR:[ regular rate, rhythm, normal S1 and S2. No appreciated murmurs, rubs or gallops. Strong radial and DP pulses with intact distal perfusion. No lower extremity edema] GASTROINTESTINAL: [soft, active bowel sounds throughout, TTP along right side of abdomen, non-distended, no palpable masses, no rebound or guarding. No hepatosplenomegaly] MUSCULOSKELETAL: [Extremities have no gross deformity, no edema, redness, or swelling. TTP right hip and distal femur without deformity, is able to flex right hip however painful with hip flexion, able to flex R knee to 90 degrees, knee, dital RLE, ankle, foot are nontender to palpation, LLE nontender to palpation, able to move LLE through full ROM, TTP lateral right shoulder, proximal UE, elbow, prox forearm without deformity, able to move extremity through full ROM , LUE atraumatic, TTP lower lumbar region, worse along right side of back, no step offs ] NEUROLOGIC: [_a/o x 3, GCS 15, normal mentation and speech. Moves all extremities x 4 without motor or sensory deficit, with exceptions as noted above ] PSYCHIATRIC:[ _normal mood and affect, thought process is clear and linear] Limitations: no limitations Course Vital Signs 10/30/24 10/30/24 10/31/24 22:18 23:15 00:52 Temperature 98.4 F Pulse Rate 87 83 81 Respiratory 18 18 16 Rate Blood Pressure 173/76 163/77 156/78 O2 Sat by Pulse 94 L 94 L 95 Oximetry EKG Findings - EKG Comments: EKG Findings:: Sinus rhythm, rate 86 bpm intervals within acceptable limits, left axis deviation, artifact is present limiting interpretation though no clear ST elevations or depressions,Compared to EKG performed on 11/02/2023, no significant change from prior ones Medical Decision Making - Medical Decision Making Was pt. sent in by a medical professional or institution (, PA, SHANK BREAKER, urgent care, hospital, or senior living...) When possible be specific @ -[No] Did you speak to anyone other than the patient for history (EMS, parent, family, police, friend...)? What history was obtained from this source @ -I spoke with patient's niece who is with her when she fell, witnessed fall no head trauma Did you review nursing and triage notes (agree or disagree)? Why? @ -[I reviewed nursing and triage notes] Were old charts reviewed (outside hosp., previous admission, EMS record, old EKG, old radiological studies, urgent care reports/EKG's, senior living records)? Report findings @ -[Medical records reviewed] Differential Diagnosis (chest pain, altered mental status, abdominal pain women, abdominal pain men, vaginal bleeding, weakness, fever, dyspnea, syncope, headache, dizziness, GI bleed, back pain, seizure, CVA, palpatations, mental health, musculoskeletal)? @Differential Musculoskeletal Muscular strain, contusion, ligament sprain, fracture, arthritis, septic arthritis, bursitis, cellulitis, muscle spasm, nerve compression, DVT, arterial occlusion, herpes zoster, electrolyte abnormality, tumor.... This is not meant to be in all inclusive list EKG interpreted by me (3pts min.). @ -[As above] X-rays interpreted by me (1pt min.). @ -[None done] CT interpreted by me (1pt min.). @ -[None done] U/S interpreted by me (1pt. min.). @ -[None done] What testing was considered but not performed or refused? (CT, X-rays, U/S, labs)? Why? @ -[None] What meds were considered but not given or refused? Why? @ -[None] Did you discuss the management of the patient with other professionals (professionals i.e. , PA, SHANK BREAKER, lab, RT, psych nurse, social services assistant, last repairer, teacher, recreation officer, outsole caser)? Give summary @ -[No] Was smoking cessation discussed for >3mins.? @ -[No] Was critical care preformed (if so, how long)? @ -[No] Were there social determinants of health that impacted care today? How? (Homelessness, low income, unemployed, alcoholism, drug addiction, transportation, low edu. Level, literacy, decrease access to med. care, detention, rehab)? @ -[No] Was there de-escalation of care discussed even if they declined (Discuss DNR or withdrawal of care, Hospice)? @ -[No] What co-morbidities impacted this encounter? (DM, HTN, Smoking, COPD, CAD, Cancer, CVA, ARF, Chemo, Hep., AIDS, mental health diagnosis, sleep apnea, morbid obesity)? @ -[None] Was patient admitted / discharged? Hospital course, mention meds given and route, prescriptions, significant lab abnormalities, going to OR and other pertinent info. @ -[hospital course] this is a pleasant 79-year-old female presenting for trip and fall after he tried to get out of car and having dizziness. Dizziness is not currently present. Exam significant for tenderness ovation along C-spine predominantly more on the right than in the center of the spine without step- offs, tenderness patient proximal right upper extremity, long posterior right ribs anterior right ribs, right side of abdomen which is otherwise soft and nondistended, tenderness palpation of the right hip, right lumbar spine and distal femur. Discussed with patient plan for basic labs, will obtain CT C- spine given C-spine tenderness, patient was immediately placed in c-collar when C-spine pain was noted, will obtain CT chest abdomen pelvis without contrast due to patient's age, multiple areas of tenderness and pain to assess for signs of blunt traumatic injury, spinal fractures, etc; plain films affected extremities, EKG, pain control. Pt agreeable with POC. Imaging significant for right sided rib fracture otherwise negative for acute process or fracture. After reviewing patient's imaging I updated patient to imaging findings and cleared their C-Spine. There is no midline cervical neck tenderness or step-offs. The patient denies any numbess, tingling, or weakness of the extremities when moving neck through full ROM. The patient is able to range their neck completely without midline cervical pain, numbness, tingling or weakness. Undiagnosed new problem with uncertain prognosis? @ -[No] Drug Therapy requiring intensive monitoring for toxicity (Heparin, Nitro, Insulin, Cardizem)? @ -[No] Were any procedures done? @ -[No] Diagnosis/symptom? @ -[default] Acute, or Chronic, or Acute on Chronic? @ -[default] Uncomplicated (without systemic symptoms) or Complicated (systemic symptoms)? @ -[default] Side effects of treatment? @ -[No] Exacerbation, Progression, or Severe Exacerbation? @ -[No] Poses a threat to life or bodily function? How? (Chest pain, [place], [place], pneumonia, PE, COPD, DKA, ARF, appy, cholecystitis, CVA, Diverticulitis, Homicidal, Suicidal, threat to staff... and all critical care pts) @ -[No] - Lab Data Result diagrams: 10/30/24 23:15 10/30/24 23:15 Lab Results 10/30/24 10/30/24 10/30/24 Range/Units 23:15 23:15 23:15 WBC 10.1 (3.8-10.6) k/uL RBC 4.11 (3.80-5.40) m/uL Hgb 12.9 (11.4-16.0) gm/dL Hct 39.6 (34.0-46.0) % MCV 96.3 (80.0-100.0) fL MCH 31.4 (25.0-35.0) pg MCHC 32.6 (31.0-37.0) g/dL RDW 15.1 (11.5-15.5) % Plt Count 194 (150-450) k/uL MPV 10.7 Neutrophils % 68 % Lymphocytes % 18 % Monocytes % 9 % Eosinophils % 1 % Basophils % 1 % Neutrophils # 6.9 (1.3-7.7) k/uL Lymphocytes # 1.8 (1.0-4.8) k/uL Monocytes # 0.9 (0-1.0) k/uL Eosinophils # 0.1 (0-0.7) k/uL Basophils # 0.1 (0-0.2) k/uL PT 10.4 (10.0-12.5) sec INR 0.9 (<1.2) APTT 22.2 (22.0-30.0) sec Sodium 136 L (137-145) mmol/L Potassium 4.3 (3.5-5.1) mmol/L Chloride 104 (98-107) mmol/L Carbon Dioxide 30 (22-30) mmol/L Anion Gap 2 mmol/L BUN 27 H (7-17) mg/dL Creatinine 0.79 (0.52-1.04) mg/dL Est GFR (CKD-EPI)AfAm 84 (>60 ml/min/1.73 sqM) Est GFR (CKD-EPI)NonAf 73 (>60 ml/min/1.73 sqM) Glucose 187 H (74-99) mg/dL Calcium 9.5 (8.4-10.2) mg/dL Total Bilirubin 0.7 (0.2-1.3) mg/dL AST 21 (14-36) U/L ALT 14 (4-34) U/L Alkaline Phosphatase 116 (38-126) U/L Troponin I (0.000-0.034) ng/mL Total Protein 6.2 L (6.3-8.2) g/dL Albumin 3.6 (3.5-5.0) g/dL 10/30/24 Range/Units 23:15 WBC (3.8-10.6) k/uL RBC (3.80-5.40) m/uL Hgb (11.4-16.0) gm/dL Hct (34.0-46.0) % MCV (80.0-100.0) fL MCH (25.0-35.0) pg MCHC (31.0-37.0) g/dL RDW (11.5-15.5) % Plt Count (150-450) k/uL MPV Neutrophils % % Lymphocytes % % Monocytes % % Eosinophils % % Basophils % % Neutrophils # (1.3-7.7) k/uL Lymphocytes # (1.0-4.8) k/uL Monocytes # (0-1.0) k/uL Eosinophils # (0-0.7) k/uL Basophils # (0-0.2) k/uL PT (10.0-12.5) sec INR (<1.2) APTT (22.0-30.0) sec Sodium (137-145) mmol/L Potassium (3.5-5.1) mmol/L Chloride (98-107) mmol/L Carbon Dioxide (22-30) mmol/L Anion Gap mmol/L BUN (7-17) mg/dL Creatinine (0.52-1.04) mg/dL Est GFR (CKD-EPI)AfAm (>60 ml/min/1.73 sqM) Est GFR (CKD-EPI)NonAf (>60 ml/min/1.73 sqM) Glucose (74-99) mg/dL Calcium (8.4-10.2) mg/dL Total Bilirubin (0.2-1.3) mg/dL AST (14-36) U/L ALT (4-34) U/L Alkaline Phosphatase (38-126) U/L Troponin I <0.012 (0.000-0.034) ng/mL Total Protein (6.3-8.2) g/dL Albumin (3.5-5.0) g/dL Disposition Clinical Impression: Fracture, rib, Fall Disposition: HOME SELF-CARE Condition: Good Instructions (If sedation given, give patient instructions): Rib Fracture (ED) Additional Instructions: Every disease is a spectrum and a small chance still exists that a serious condition could develop, for this reason, please monitor yourself closely for new, changing or worsening symptoms, uncontrolled pain, coughing up thick sputum or blood, difficulty in breathing, pain that does not begin to improve over the next 48 hours fever, inability to tolerate/keep down fluids or your medications, inability to follow up with outpatient providers as instructed and should you experience these symptoms or should you have any further concerns for your wellbeing please return to the ED or call 911 immediately. Your pain can be treated with acetaminophen. If you need to take this dose daily for more than a week, please schedule an appointment for re-evaluation with your PCP. Please take these medications with food. You can take up to 1000 mg of acetaminophen (Tylenol) every 6 hours. Be careful as this is included in some medicines like Nyquil, [place], Percocet, Vicodin, STANBACK, Goody's Powders, and Excedrin. Please only use provided tramadol as needed as this may make you dizzy. You can also use lidocaine patches for topical pain. You can purchase 4% patches over the counter at most drug stores. These can be helpful for pain from your muscles or bones. Please use your incentive spirometer at least 4 times a day to help prevent formation of pneumonia. PLEASE call your primary care physician as soon as possible to arrange / discuss plan for followup appointment. Appointment in the next 1-3 days is strongly encouraged if possible. PLEASE let us know here before you leave if there is anything further we can do to be of any assistance. Take care and feel Better! Is patient prescribed a controlled substance at d/c from ED?: No Referrals: Mariah Snyder MD [Primary Care Provider] - 1-2 days
[2024-10-30] MEDS: ONDANSETRON 4 MG/2 ML VIAL IVP STA (23:17)
[2024-10-30] MEDS: MORPHINE SULFATE 4 MG/ML SYRINGE IV STA (23:19)
[2024-10-30 23:31] LABS: Basophils # (A) 0.1 k/uL (0-0.2); Basophils % (A) 1 %; Eosinophils # (A) 0.1 k/uL (0-0.7); Eosinophils % (A) 1 %; HCT 39.6 % (34.0-46.0); HGB 12.9 gm/dL (11.4-16.0); Lymphocytes # (A) 1.8 k/uL (1.0-4.8); Lymphocytes % (A) 18 %; MCH 31.4 pg (25.0-35.0); MCHC 32.6 g/dL (31.0-37.0); MCV 96.3 fL (80.0-100.0); Mean Platelet Volume 10.7; Monocytes # (A) 0.9 k/uL (0-1.0); Monocytes % (A) 9 %; Neutrophils # (A) 6.9 k/uL (1.3-7.7); Neutrophils % (A) 68 %; Platelet Count 194 k/uL (150-450); RBC 4.11 m/uL (3.80-5.40); RDW 15.1 % (11.5-15.5); WBC 10.1 k/uL (3.8-10.6)
[2024-10-30 23:32] LABS: ALT 14 U/L (4-34); African American GFR (CKD) 84 (>60 ml/min/1.73 sqM); Albumin 3.6 g/dL (3.5-5.0); Anion Gap 2 mmol/L; Blood Urea Nitrogen 27 mg/dL (7-17); Calcium 9.5 mg/dL (8.4-10.2); Carbon Dioxide 30 mmol/L (22-30); Chloride 104 mmol/L (98-107); Glucose 187 mg/dL (74-99); Non-African American GFR(CKD) 73 (>60 ml/min/1.73 sqM); Sodium 136 mmol/L (137-145); Total Bilirubin 0.7 mg/dL (0.2-1.3); Total Protein 6.2 g/dL (6.3-8.2)
[2024-10-30 23:34] LABS: Potassium 4.3 mmol/L (3.5-5.1)
[2024-10-30 23:35] LABS: AST 21 U/L (14-36); Alkaline Phosphatase 116 U/L (38-126)
[2024-10-30 23:41] LABS: INR 0.9 (<1.2); Partial Thromboplastin Time 22.2 sec (22.0-30.0); Prothrombin Time 10.4 sec (10.0-12.5)
--- NOTE | 2024-10-31 00:11 | XR ---
EXAM: XR Right Forearm, 2 Views CLINICAL HISTORY: ITS.REASON XR Reason: fall R. shoulder, bicep, elbow, prox forearm pain TECHNIQUE: Frontal and lateral views of the right forearm. COMPARISON: No relevant prior studies available. FINDINGS: Bones/joints: Osteopenia. No acute fracture. No dislocation. Soft tissues: Unremarkable. IMPRESSION: No acute findings in the right forearm.
--- NOTE | 2024-10-31 00:12 | XR ---
EXAM: XR Right Femur, 2 Views CLINICAL HISTORY: ITS.REASON XR Reason: right hip pain fall TECHNIQUE: Frontal and lateral views of the right femur. COMPARISON: No relevant prior studies available. FINDINGS: Bones/joints: Osteopenia. No acute fracture or dislocation. Mild tricompartment osteoarthritis of the knee with chondrocalcinosis. No significant knee joint effusion. Soft tissues: Unremarkable. Vasculature: Vascular calcifications. IMPRESSION: No acute findings in the right femur.
[2024-10-31] MEDS: ACETAMINOPHEN TAB 500 MG TAB PO STA (00:13)
--- NOTE | 2024-10-31 00:13 | XR ---
EXAM: XR Right Humerus, 2 or More Views CLINICAL HISTORY: ITS.REASON XR Reason: fall R. shoulder, bicep, elbow, prox forearm pain TECHNIQUE: Frontal and lateral views of the right humerus. COMPARISON: No relevant prior studies available. FINDINGS: Bones/joints: No acute fracture. No dislocation. Soft tissues: Unremarkable. IMPRESSION: No acute osseous findings.
--- NOTE | 2024-10-31 00:17 | CT ---
EXAM: CT Chest Without Intravenous Contrast CLINICAL HISTORY: ITS.REASON CT Reason: fall, right sided rib, back and hip pain TECHNIQUE: Axial computed tomography images of the chest without intravenous contrast. CTDI is 10.2 mGy and DLP is 690.7 mGy-cm. This CT exam was performed using one or more of the following dose reduction techniques: automated exposure control, adjustment of the mA and/or kV according to patient size, and/or use of iterative reconstruction technique. COMPARISON: No relevant prior studies available. FINDINGS: Lungs: Bibasilar subsegmental atelectasis. No consolidation, contusion, or mass. Pleural space: Unremarkable. No pleural effusion. No pneumothorax. Heart: Prior sternotomy and CABG. Coronary artery atherosclerosis. No cardiomegaly or pericardial effusion. Mediastinum: Unremarkable. No mediastinal hematoma. Bones/joints: Skeletal demineralization. Disc degeneration in the thoracic spine. Fusion hardware in the visualized lower cervical spine. Nondisplaced fracture anterior right rib for, potentially acute. No other fractures. No dislocation. Soft tissues: Unremarkable. Vasculature: Calcified thoracic aorta without aneurysm. Enlarged main pulmonary artery suggesting palmar arterial hypertension. Lymph nodes: Unremarkable. No enlarged lymph nodes. IMPRESSION: Nondisplaced fracture anterior right rib for, potentially acute. No other traumatic findings. EXAM: CT Abdomen and Pelvis Without Intravenous Contrast CLINICAL HISTORY: ITS.REASON CT Reason: fall, right sided rib, back and hip pain TECHNIQUE: Axial computed tomography images of the abdomen and pelvis without intravenous contrast. CTDI is 0 mGy and DLP is 0 mGy-cm. This CT exam was performed using one or more of the following dose reduction techniques: automated exposure control, adjustment of the mA and/or kV according to patient size, and/or use of iterative reconstruction technique. COMPARISON: No relevant prior studies available. FINDINGS: Lung bases: Reported separately. ABDOMEN: Liver: Unremarkable. Gallbladder and bile ducts: Cholecystectomy. Enlarged common bile duct, presumed reservoir effect. Pancreas: Unremarkable. No ductal dilation. Spleen: Unremarkable. No splenomegaly. Adrenals: Unremarkable. No mass. Kidneys and ureters: Scarring and atrophy right kidney upper pole. Bilateral simple renal cysts; no follow-up indicated. No hydronephrosis. No radiopaque stones. Stomach and bowel: Unremarkable. No mucosal thickening. No bowel obstruction. PELVIS: Appendix: Appendix not visualized. No secondary signs of appendicitis. Bladder: Unremarkable. No stones. Reproductive: Hysterectomy. ABDOMEN and PELVIS: Intraperitoneal space: Unremarkable. No free fluid or free air. Bones/joints: Lumbar spondylosis. Osteopenia. No acute fracture. No dislocation. Soft tissues: Unremarkable. Vasculature: Atherosclerosis. No abdominal aortic aneurysm. Lymph nodes: Unremarkable. No enlarged lymph nodes. IMPRESSION: No acute traumatic findings.
--- NOTE | 2024-10-31 00:18 | CT ---
EXAM: CT Cervical Spine Without Intravenous Contrast CLINICAL HISTORY: ITS.REASON CT Reason: right neck pain, fall, no direct trauma TECHNIQUE: Axial computed tomography images of the cervical spine without intravenous contrast. CTDI is 10.2 mGy and DLP is 690.7 mGy-cm. This CT exam was performed using one or more of the following dose reduction techniques: automated exposure control, adjustment of the mA and/or kV according to patient size, and/or use of iterative reconstruction technique. COMPARISON: No relevant prior studies available. FINDINGS: Vertebrae: Osteopenia. Uncomplicated C3-C6 ACDF. No acute fracture or traumatic subluxation. Discs/spinal canal/neural foramina: Multilevel spondylosis. No significant central spinal canal stenosis. Soft tissues: Unremarkable. Vasculature: Atherosclerotic vascular disease. IMPRESSION: No acute findings in the cervical spine.
[2024-10-31] MEDS: LIDOCAINE 4% PATCH TOPICAL ONE (00:37)
[2024-10-31] MEDS: traMADol 50 MG STARTER PACK 3 TAB BTL PO STA (00:37)
[2024-10-31 00:53] VITALS: BP 156/78; PULSE 81; RESP 16
== END 2024-10-31 00:53 | disposition home or self-care (01) ==
LOC: EC 22:16
DX: S22.31XA Fracture of one rib, right side, initial encounter for closed fracture (principal); F17.200 Nicotine dependence, unspecified, uncomplicated; Z88.2 Allergy status to sulfonamides; Z91.048 Other nonmedicinal substance allergy status; W01.0XXA Fall on same level from slipping, tripping and stumbling without subsequent striking against object, initial encounter
CPT/HCPCS: 36415; 93005; 80053; 84484; 85025; 85610; 85730; 73552; 73060; 73090; 99285; 96374; 96375; J2270; J2405; 71250; 72125; 74176

== ENCOUNTER → 2024-12-01 | Outpatient (CLI) | payer MEDICARE, OTHER ==
[2024-12-01 19:36] LABS: ALT 10 U/L (8-44); AST 16 U/L (13-35); Chol/HDL Ratio 2.54 Ratio; LDL Cholesterol,Calculated 46.4 mg/dL (0.0-131.0); VLDL Calculation 18.98 mg/dL (5.00-40.00)
== END | disposition home or self-care (01) ==
LOC: LABWHC1 11:36
PROVIDERS: ATTEND Internal Medicine Cardiovascular Disease
DX: E78.2 Mixed hyperlipidemia (principal)
CPT/HCPCS: 36415; 80061; 84450; 84460

== ENCOUNTER → 2025-01-20 | Outpatient (CLI) | payer MEDICARE, OTHER ==
--- NOTE | 2025-01-20 18:13 | XR ---
EXAMINATION TYPE: XR lumbar spine 2 or 3V, XR thoracic spine complete DATE OF EXAM: 01/20/2025 3:45 PM COMPARISON: CT CLINICAL INDICATION: Female, 79 years old with history of R29.6 R26.0 M54.12 R29.898 M54.50 M54.16 M5 4.26; PHH, pain TECHNIQUE: XR lumbar spine 2 or 3V, XR thoracic spine complete - Frontal, lateral and coned in L5-S1 lateral views of the spine. Frontal lateral and swimmer's view of the thoracic spine. FINDINGS: No evidence of any acute osseous pathology. Scattered areas of vertebral body wedging throu ghout the thoracic and lumbar spine.. There is straightened with mild dextroscoliosis of the thoracic spine. Scattered disc space narrowing. Multilevel marginal osteophyte formation throughout the visua lized spine. There is facet joint arthropathy throughout the spine. Severe neural foraminal stenosis at L5-S1 suggested. Severe atherosclerosis of the arterial vasculature. Fixation hardware in the cerv ical spine appears intact. Fixation hardware with sternotomy wires is present. IMPRESSION: 1. No definitive acute fractures. 2. Severe multilevel disc degeneration with scattered wedge deformities throughout the thoracic spine . [facility], , 01/20/2025 6:11 PM
--- NOTE | 2025-01-21 11:30 | MR ---
EXAMINATION TYPE: MR cspine/tspine wo con DATE OF EXAM: 01/20/2025 4:49 PM COMPARISON: Plain film and CT. CLINICAL INDICATION: Female, 79 years old with history of R29.6 R26.0 M54.12 R29.898 M54.50; PHH, nathan n, weakness, falls, trouble walking, history of surgery TECHNIQUE: Multi planar, multi sequence imaging was performed utilizing: T1-weighted, T2-weighted, a nd turbo inversion recovery imaging of the cervical and thoracic spine. IV Contrast: mL (None, if empty) FINDINGS: CERVICAL: Alignment: The cervical vertebral bodies have preserved heights. There is grade 1 anterolisthesis of C7 on T1 and T1 and T2 and T2 on T3. Bones: Anterior fixation hardware is seen throughout the cervical spine from C3 to C6. Scattered Benny c endplate changes with osteophytes and disc space narrowing. Multilevel degenerative disc disease is noted and most pronounced at the C5-C7 vertebral levels. Cord: The spinal cord is unremarkable with regards to their signal intensity and morphology. Discs: Multilevel disc desiccation is present. C2-C3: No significant disc pathology. The spinal canal is patent. Bilateral facet and uncovertebral joint arthropathy are present with mild bilateral neural foraminal stenosis. C3-C4: A disc osteophyte complex is present with moderate spinal canal stenosis. Bilateral facet and uncovertebral joint arthropathy are present with moderate bilateral neural foraminal stenosis. C4-C5: A disc osteophyte complex is present with moderate spinal canal stenosis. Bilateral facet and uncovertebral joint arthropathy are present with moderate to severe bilateral neural foraminal steno sis. C5-C6: A disc osteophyte complex is present with moderate spinal canal stenosis. Bilateral facet and uncovertebral joint arthropathy are present with moderate to severe bilateral neural foraminal steno sis. C6-C7: No significant disc pathology. The spinal canal is patent. Bilateral facet and uncovertebral joint arthropathy are present with moderate bilateral neural foraminal stenosis. C7-T1: A disc osteophyte complex is present which minimally narrows the ventral subarachnoid space. No neural foraminal stenosis. THORACIC: No evidence significant spinal canal or neural foraminal stenosis. Spinal cord is within no rmal limits Other: Layering secretions are seen within the trachea. Bilateral renal cortical cysts. No follow-up recommended. IMPRESSION: 1. No definitive evidence of disc herniation or significant spinal canal stenosis. 2. Post surgical changes with moderate disc degeneration with associated osteoarthritic changes. Mod erate and moderate to severe neural foraminal stenosis throughout this cervical spine. 3. The thoracic spine is without evidence for high-grade neural foraminal or spinal canal stenosis. 4. There is grade 1 anterolisthesis of C7 on T1, T1 on T2 and T2 on T3. [facility], , 01/21/2025 11:27 AM
--- NOTE | 2025-01-22 07:25 | BD ---
EXAMINATION TYPE: Axial Bone Density DATE OF EXAM: 01/20/2025 CLINICAL HISTORY: 79 years old Female. ICD-10 CODE: M54.50 LOW BACK PAIN R29.6 MULTIPLE FALLS BD , A dditional History: Height: 60 Weight: 139 FRAX RISK QUESTIONS: Secondary Osteoporosis: Rheumatoid Arthritis: yes Current Tobacco Use: yes RISK FACTORS HISTORY OF: Surgery to Spine/Hip(right/left)/Wrist (right/left): lumbar surgery, but patient unsure what it was When: about 30 years MEDICATIONS: EXAM MEASUREMENTS: Bone mineral densitometry was performed using the [employer] System. Bone mineral density as measured about the Lumbar spine is: ----- L1-L4(G/cm2): 1.422 T Score Values are as follows: ----- L1: 0.0 ----- L2: 1.4 ----- L3: 3.6 ----- L4: 3.0 ----- L1-L4: 2.0 Z Score Values are as follows: ----- L1: 1.9 ----- L2: 3.3 ----- L3: 5.5 ----- L4: 4.9 ----- L1-L4: 3.9 First dexa at [facility] Bone mineral density about the R hip (g/cm2): 0.834 Bone mineral density about the L hip (g/cm2): 0.752 T Score values are as follows: -----R Neck: -2.7 -----L Neck: -4.0 -----R Total: -1.4 -----L Total: -2.0 Z Score values are as follows: -----R Neck: -0.5 -----L Neck: -1.8 -----R Total: 0.6 -----L Total: -0.1 First dexa at [facility] FRAX%s: The graph provided illustrates a 51.2% chance for a major osteoporotic fx and a 38.5% chance for the hips probability for fx in 10 years time. IMPRESSION: Osteoporosis (T Score less than -2.5). There is increased fracture risk and therapy is usually indicated based on age. Re-Screen 1-2 years. NOTE: T-SCORE=SD OF THE YOUNG ADULT MEAN. [facility], , 01/22/2025 7:23 AM
== END | disposition home or self-care (01) ==
LOC: RADBDWWP 14:32
PROVIDERS: ATTEND Psychiatry & Neurology Neurology
DX: M48.02 Spinal stenosis, cervical region (principal); M51.16 Intervertebral disc disorders with radiculopathy, lumbar region; M50.10 Cervical disc disorder with radiculopathy, unspecified cervical region; R26.0 Ataxic gait; R29.898 Other symptoms and signs involving the musculoskeletal system; M81.0 Age-related osteoporosis without current pathological fracture; M43.13 Spondylolisthesis, cervicothoracic region
CPT/HCPCS: 72072; 72100; 72141; 72146; 77080

== ENCOUNTER → 2025-01-30 | Outpatient (CLI) | payer MEDICARE, OTHER ==
[2025-01-30 10:17] VITALS: BP 124/75; PULSE 79; RESP 16; TEMP 97.2
--- NOTE | 2025-01-30 14:37 | P.PAINPG ---
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 Pt states pain level is provoked at 8-10 /10 in intensity, constant, localized in the lumbar spine, predominantly axial, sharp in character w occasional shooting pain towards the back of the LEs. Pain is provoked by over activity. Pain is alleviated by PT x 6 wks which ended in 2021, physician guided home exercise regimen 3 times weekly x 6 mo which ended in 2023, stretches daily since 2023, heat, medications, topical, repositioning and rest . Oswestry axial pain score at 40. PMH: OA, CAD, Angina, NIDDM II, HTN, Nephrolithiasis PSH: R L5-S1 hemilaminectomy, ACDF (2020), Coronary Bypass/CABG, Hysterectomy, Pancreatic Stents, Tonsillectomy SH: Daily tobacco use, Occ ETOH use, No illicit drug use FH: Mo- [place] All: See list Medications include Tyl, BioFreeze REVIEW OF ORGAN SYSTEMS: CONSTITUTIONAL: No fevers or chills. No recent weight loss. NEUROLOGICAL: + numbness and tingling along the distal extremities. No seizure disorders or headaches. MUSCULOSKELETAL: + pain PSYCHIATRIC: Denies current depression or suicidal thoughts. Physical Examinations : Constitutional : Cooperative , not in acute distress . Neurologic : Cranial nerve II to XII intact. No focal neurological deficits. Psychiatric : alert & oriented x 3. Matching mood & appropriate affect. Judgment & insight intact. Musculoskeletal : Cervical Spine Motor strength in the deltoid and biceps: Normal right side. Normal Left side Motor strength biceps and the wrist extensors: Normal right side . Normal left side Motor strength in the triceps muscle: Normal right side. Normal left side Deep tendon reflexes: Normal at the biceps. Normal at Brachioradialis. Normal at triceps Vertebral body tenderness to deep palpation over Cervical facet loading test: positive bilaterally Spurling test: positive bilaterally Neck distraction test: positive bilaterally Radha sign: positive bilaterally Lumbar spine Motor strength lower extremities ,thigh and legs 5/5 Right side , 5/5 Left side Deep tendon reflexes : Normal Knee Jerk. Normal Ankle Jerk Vertebral body tenderness over L3 Jorge Test positive BL L3-L4 Lumbar facet Loading Test: positive Right / positive Left Range of motion of the lumbar spine Flexion 30 degrees, extension 10 degrees Straight Leg Raise test: Left/ Right positive at degrees Rubia test: positive right / positive left. Severe tenderness over the Sacroiliac joint on the Right / Left sides Gaenslen test: positive bilaterally Seated flexion test: positive bilaterally. Sacral spine : Severe tenderness over the Sacroiliac joint: right side / left side Range of motion: Flexion of the lumbar spine <60 degrees Range of motion: Extension of the lumbar spine <20 degrees Gaenslen's Test positive Rubia test: positive right side / lef t side Thigh Thrust Test Sacral Thrust Test Imaging: MRI non contrast cervical spine from 01/20/25 reviewed MRI non contrast lumbar spine from 08/18/24 reviewed Assessment/ Plan : ACDF (2020), R L5-S1 laminectomy, L3-L4 severe radiculopathy Recommendation of APOLONIA L3-L4 #1 and medication management. Risks, benefits of procedure discussed and patient verbalized understanding. Admits to anti- coagulant use or medical history of diabetes. [place] 7.5/325mg #90 w RF. Opiate/ narcotic agreement signed 01/30/25. Use, side effects, adverse reactions, safe storage discussed. All questions answered. I have spent greater than 30 minutes on patient care today. Dr Medrano was available by phone for the evaluation of this patient. The time was used to review the medical records including relevant urine studies and Prescription history (MAPs), review of the available imaging, evaluation and examination of the patient, coordination of care with the medical staff and if applicable referring physicians, as well as creation of the medical record - Pain Location Bilateral Lower Back Non-Pharmacological Interventions: Home Exercise, Inactivity, Physical Therapy, Position/Reposition, Sitting, Stretching Pharmacological Interventions: PRN Medication, Topical Medication PQRS Narrative: Smoking Status Current some day smoker Home Medications: Ambulatory Orders Atorvastatin Calcium [Lipitor] 40 mg PO HS 12/25/17 Albuterol Inhaler [Ventolin Hfa Inhaler] 1 - 2 puff INHALATION RT-Q6H PRN 07/16/23 Budesonide/Formoterol Fumarate [Symbicort 160-4.5 Mcg Inhaler] 2 puff INHALATION RT-BID 07/16/23 Pioglitazone [Actos] 15 mg PO DAILY 12/21/23 traZODone HCL [Desyrel] 25 mg PO HS 07/16/23 PARoxetine [Paxil] 10 mg PO DAILY 07/17/23 Acetaminophen Tab [Tylenol] 650 mg PO Q6HR PRN tab 06/03/24 Ondansetron Odt [Zofran Odt] 4 mg PO Q8HR PRN #20 tab 06/03/24 Pantoprazole Sodium [Protonix] 40 mg PO BID #60 tab 06/03/24 Sucralfate [Carafate] 1 gm PO TID #90 tablet 06/03/24 Multivitamin [Multivitamins Adult Gummies] 1 each PO DAILY 08/30/24 Turmeric Root Extract [Turmeric] 500 mg PO DAILY 08/30/24 HYDROcodone/APAP 7.5-325MG [[place] 7.5-325] 1 tab PO TID PRN 30 Days #90 tab 01/30/25 HYDROcodone/APAP 7.5-325MG [[place] 7.5-325] 1 tab PO TID PRN 30 Days #90 tab 01/30/25 Controlled Substance Measures - Controlled Substance Measures Is patient prescribed a controlled substance at discharge?: Yes When asked, does pt state using other controlled substances?: No If prescribed controlled substance>3 days was MAPS reviewed?: Yes If Rx opioid, was Start Talking consent form obtained?: Yes Was information provided regarding opioid addiction?: Yes
== END ==
LOC: PNWHC3 09:52
PROVIDERS: ATTEND Specialist
DX: M47.26 Other spondylosis with radiculopathy, lumbar region (principal); M51.26 Other intervertebral disc displacement, lumbar region; M96.1 Postlaminectomy syndrome, not elsewhere classified; E11.40 Type 2 diabetes mellitus with diabetic neuropathy, unspecified; R29.6 Repeated falls; R26.0 Ataxic gait; Z98.1 Arthrodesis status; Z88.2 Allergy status to sulfonamides; Z91.048 Other nonmedicinal substance allergy status; F17.200 Nicotine dependence, unspecified, uncomplicated
CPT/HCPCS: 99211